=== PATIENT | female | born 1950 | race Caucasian/White ===

== ENCOUNTER → 2023-04-25 12:08 | Outpatient (CLI) | payer MEDICARE, SELFPAY ==
--- NOTE | ~2023-04-25 | XR_ITS ---
EXAMINATION: XR lumbar spine min 4V DATE: 04/25/2023 12:51 INDICATION: Chronic low back pain TECHNIQUE: Anteroposterior, lateral, and bilateral oblique views of the lumbar spine, and cone-down l ateral view of the lumbosacral junction were obtained. COMPARISON: None. FINDINGS: Bone alignment is normal. There is severe loss of intervertebral disc space height at L5-S1 . There is moderate facet joint osteoarthritis at L5-S1. The vertebral body heights are maintained. T here is multilevel mild facet joint osteoarthritis. Surgical clips in the right upper quadrant are maldonado lemos from prior cholecystectomy. IMPRESSION: 1. Severe lumbar spondylosis at L5-S1. Reviewed, dictated and finalized at location B. L BLOCK PRESS OPERATOR
--- NOTE | ~2023-04-25 | XR_ITS ---
AP and lateral views of the bilateral hips Clinical history: Pain Findings: No acute fracture or dislocation is seen. Osseous alignment is anatomic. Bilateral hip and SI joint spaces are preserved. Soft tissues are unremarkable. Impression: No significant abnormality is seen. Reviewed, dictated and finalized at [facility]. LITY MANAGER HISTOLOGY Impression: No significant abnormality is seen.
== END ==
PROVIDERS: PCP Physician Assistant; Visit Provider Physician Assistant
DX: M47.816 Spondylosis without myelopathy or radiculopathy, lumbar region (principal); M25.552 Pain in left hip; M25.551 Pain in right hip
CPT/HCPCS: 72110; 73521

== ENCOUNTER 2023-05-30 13:16 | Emergency (ER) | payer MEDICARE, SELFPAY ==
[2023-05-30] VITALS (32 sets, daily range): BP systolic 88–166; BP diastolic 43–95; PULSE 57–71; RESP 13–20; TEMP 37.1; O2SAT 91–98
--- NOTE | ~2023-05-30 | XR_ITS ---
EXAMINATION: XR chest 1V portable INDICATION: Dyspnea and cough TECHNIQUE: Portable AP chest at 1644 hours COMPARISON: None available FINDINGS: The lungs are free of acute opacities. There is a 7 mm nodule of the right midlung zone. Th ere is also questionable 8 mm nodule at the superolateral aspect of the left hemithorax projecting ov er the posterior left fifth rib. The heart size is normal. IMPRESSION: 1. Right lung nodule and possible left lung nodule. Follow-up with CT of the chest is recommended. Reviewed, dictated and finalized at location F. E DYE WORKER IMPRESSION: 1. Right lung nodule and possible left lung nodule. Follow-up with CT of the ch est is recommended.
--- NOTE | ~2023-05-30 | CT_ITS ---
EXAMINATION: CT diagnostic chest wo con DATE: 05/30/2023 18:05 INDICATION: Lung nodule on chest radiograph TECHNIQUE: Computed tomography (CT) of the chest was performed without intravenous contrast. The dose -length product (DLP) was 176.41 mGy-cm. Automated exposure control and iterative reconstruction tech [employer] were employed. COMPARISON: Chest radiograph from today FINDINGS: There is a 10 mm nodule in the superior segment of the right lower lobe. There is a 9 mm no dule in the left upper lobe. There is a 7 mm nodule posteriorly in the left lower lobe. There is a 6 mm pleural-based nodule posteriorly in the right lower lobe. There are patchy airspace opacities of t he lower lobes. No pathologically enlarged thoracic lymph nodes are identified. The heart size is nor mal. There is calcified coronary artery atherosclerosis. Changes of cholecystectomy are noted. There is moderate thoracic spondylosis. IMPRESSION: 1. Multiple lung nodules as detailed above, concerning for metastatic disease. CT-guided biopsy of on e of the nodules is recommended. 2. Patchy airspace opacities in the lower lobes, likely minimal pneumonia. Reviewed, dictated and finalized at location F. DIE MAKER IMPRESSION: 1. Multiple lung nodules as detailed above, concerning for metastatic disease. CT-guided biopsy of one of the nodules is recommended. 2. Patchy airspace opacities in the lower lobes, likely minimal pneumonia.
--- NOTE | 2023-05-30 13:35 | PC.NURSE ---
Patient presents and states she is not feeling well and feels like she is going to pass out . This RN took patient's vitals and her BP is 83/44.
[2023-05-30 13:41] LABS: Glucose Point of Care 132 mg/dl (65-105)
--- NOTE | 2023-05-30 13:59 | PC.NURSE ---
Pt A&Ox4 in room. Pt denies chest pain but c/o a cough. Pt O2sats 92%-94% RA,
--- NOTE | 2023-05-30 15:22 | ECG_ITS ---
Measurements Intervals [place] Rate: 57 P: 33 [place]: 155 QRS: -22 QRSD: 83 T: 29 QT: 441 QTc: 433 Interpretive Statements SINUS BRADYCARDIA CANNOT RULE OUT SEPTAL INFARCT, AGE INDETERMINATE CONSIDER INFERIOR INFARCT, AGE INDETERMINATE BORDERLINE T WAVE ABNORMALITY- ANTERIOR LEADS ABNORMAL ECG NO PREVIOUS ECG AVAILABLE FOR COMPARISON Electronically Signed On 05-30-2023 15:23:51 PLUSH FINISHER by Pedro Navas D.O.
--- NOTE | 2023-05-30 15:28 | PC.NURSE ---
states pt has a passed out while on toilet multiple times. Pt states she has not been dx with vaso vagal.
[2023-05-30 16:13] LABS: Basophils Percent Auto 0.2 % (0.2-1.2); Hematocrit 38.4 % (37.0-47.0); Hemoglobin 12.7 g/dL (12.0-15.0); Immature Granulocyte Absolute 0.03 K/mm3 (0.00-0.031); Immature Granulocyte Percent A 0.6 % (0-0.5); Lymphocytes Absolute Auto 1.35 K/mm3 (0.9-3.2); Mean Corpuscular HGB Conc 33.1 g/dl (32-36); Mean Corpuscular Hemoglobin 28.9 pg (26-34); Mean Corpuscular Volume 87.5 fl (80-100); Mean Platelet Volume 9.2 fl (7.4-10.4); Monocytes Absolute Auto 0.5 K/mm3 (0.1-0.6); Monocytes Percent Auto 9.7 % (2.6-8.5); Neutrophils Absolute Auto 2.8 K/mm3 (1.3-6.7); Neutrophils Percent Auto 60.5 % (45.5-73.1); Platelet Count Result 150 k/mm3 (150-375); Red Blood Count 4.39 M/mm3 (4.2-5.4); Red Cell Distribution Width 12.8 % (11.5-14.5); White Blood Count 4.7 K/mm3 (4.5-10.0)
[2023-05-30 16:31] LABS: Alanine Aminotransferase 58 U/L (6-35); Albumin Level 3.5 g/dL (3.5-5.1); Alkaline Phosphatase 63 U/L (38-126); Anion Gap 4 mmol/L (8-16); Aspartate Amino Transferase 61 U/L (14-36); Bilirubin,Total 0.7 mg/dL (0.2-1.3); Blood Urea Nitrogen 19 mg/dL (7-17); Calcium 8.9 mg/dL (8.4-10.2); Carbon Dioxide 29 mmol/L (22-30); Chloride 95 mmol/L (98-107); Estimated CRCL calculation 45 ml/min; Estimated Glomerular Filt Rate 54; Glucose 134 mg/dL (65-110); Lipase 19 U/L (23-300); Potassium 4.6 mmol/L (3.4-5.0); Sodium 128 mmol/L (137-145)
--- NOTE | 2023-05-30 16:41 | ED.GENADULT ---
HPI - General Adult General Chief complaint: Shortness of Breath/Dyspnea Stated complaint: high bp, n/v/d x7 days, weakness Time Seen by Provider: 05/30/23 16:25 Source: patient Mode of arrival: ambulatory Limitations: no limitations History of Present Illness HPI narrative: this is a 72-year-old female who presents to the ED with chief complaint of cough x1 week. Reports that she has had productive cough with mucousy phlegm. He reports feeling generally weak and bone laced. Reports low-grade temperatures of 99 every day for the past 3 days. Reports body aches as well. Reports shortness of breath with exertion. also endorses congestion. Denies abdominal pain, nausea, vomiting, chest pain, palpitations, leg swelling, hemoptysis, urinary problems. Related Data Home Medications Medication Instructions Recorded Confirmed metformin 1,000 mg tablet 1,000 mg PO BID 01/07/23 04/27/23 nebivolol 5 mg tablet 5 mg PO DAILY 01/07/23 04/27/23 insulin glargine U-300 conc 300 50 unit subcut DAILY 01/08/23 04/27/23 unit/mL (3 mL) subcutaneous pen (Toujeo Max U-300 SoloStar) coenzyme Q10 10 mg capsule (Co 10 mg PO ONCE 04/25/23 04/27/23 Q-10) omega 5-bth-kce-fish oil 1,000 mg 1 cap PO DAILY 04/25/23 04/27/23 (120 mg-180 mg) capsule (Fish Oil) vitamin B complex (B 1 tablet PO DAILY 04/25/23 04/27/23 Complex-Vitamin B12 tablet) Allergies Allergy/AdvReac Type Severity Reaction Status Date / Time ampicillin Allergy Intermediate Rash Verified 05/30/23 13:17 semaglutide [From Ozempic] Allergy Intermediate Other Verified 05/30/23 13:17 tramadol [From Ultram] Allergy Intermediate Other Verified 05/30/23 13:17 venlafaxine [From Effexor] Allergy Intermediate Other Verified 05/30/23 13:17 Ubain Allergy Intermediate Other Uncoded 05/30/23 13:17 Review of Systems Review of Systems: All systems as dictated in [facility] Past Medical History Medical History History of Ruth's esophagus last EGD was normal History of CVA (cerebrovascular accident) Hyperlipidemia Hypertension Hypothyroidism Type 2 diabetes mellitus without complications Surgical History Surgical History History of cholecystectomy History of lumbar discectomy History of thumb surgery trigger finger History of tonsillectomy and adenoidectomy Family History Family History Father Hypertension Heart disease Mother Heart disease Hypertension Grandparent Cancer Social History Social History Smoking status: Never smoker Alcohol intake: never Substance use: never Substance use type: does not use Lack of Transportation: No Lack of Food: Never True Current Housing: I Have Housing Concerned About Future Housing: No Difficulty Paying Gas/Electric Bills: No Difficulty Paying for Meds: No Currently Unemployed: No Education: Trade/Vocational Certificate Difficulty w/ Childcare or Family Care: No Living arrangements: with family Occupation/Education: retired Gender identity (if verbalized by the patient): Female Sexual Orientation (if Verbalized by the Patient): Straight or Heterosexual Spiritual care concerns: No Exam Narrative: GENERAL: Well-appearing, well-nourished, and in no acute distress. HEAD: Normocephalic, atraumatic. EYES: PERRLA and EOMI. ENT: Nares clear, no rhinorrhea or epistaxis. Mucous membranes moist. Oropharynx without tonsillar hypertrophy exudate or other lesions. NECK: Supple. No adenopathy or masses. CHEST: No respiratory distress. adventitious sounds in the left lower lung field. 96% room air. HEART: Regular rate and rhythm. No murmur heard. Normal peripheral pulses. ABDOMEN: Soft, nontender, nondistended, normal active bowel sounds.
[2023-05-30 17:16] LABS: Influenza A QL RT-PCR Positive (Negative); Influenza B QL RT-PCR Negative (Negative); RSV RNA, RT-PCR Negative (Negative); SARS-CoV-2 RNA PCR Negative (Negative)
--- NOTE | 2023-05-30 17:23 | ECG_ITS ---
Measurements Intervals [place] Rate: 61 P: 50 [place]: 148 QRS: -19 QRSD: 78 T: 30 QT: 445 QTc: 449 Interpretive Statements SINUS RHYTHM CANNOT RULE OUT SEPTAL INFARCT, AGE INDETERMINATE CONSIDER INFERIOR INFARCT, AGE INDETERMINATE BASELINE WANDER- V6 ABNORMAL ECG COMPARED TO ECG 05/30/2023 13:52:17 SINUS RHYTHM NOW PRESENT Electronically Signed On 05-31-2023 8:05:59 HUMAN RESOURCES OPERATIONS MANAGER by Pedro Navas D.O.
[2023-05-30] MEDS: SODIUM CHLORIDE 0.9% IV 1,000 ML 999 ML IV CONT (17:36)
[2023-05-30 17:45] LABS: Appearance Urine Clear (Clear); Bacteria Urine None Seen /hpf; Bilirubin Urine Negative (Negative); Blood Urine Negative (Negative); Color Urine Yellow (Yellow); Glucose Urine UA Negative (Negative); Hyaline Casts Urine Present /lpf; Ketones Urine Negative (Negative); Leukocyte Esterase Ur 2+ LEU/UL (Negative); Mucus Urine Present /lpf; Need Manual Microscopic Reviewed; Nitrate Urine Negative (Negative); Protein Urine 2+ mg/dL (Negative); RBC Urine 0-2 /hpf (0-2); Squamous Epithelial Cell Urine Few /hpf (Few); Urobilinogen Urine 0.2 mg/dL (<2.0); WBC Urine 21-50 /hpf
[2023-05-30 17:46] LABS: Add Urine Microscopic? YES
== END 2023-05-30 19:40 | disposition home or self-care (01) ==
PROVIDERS: Emergency Medicine; Emergency Provider Physician Assistant; PCP Physician Assistant
DX: J10.1 Influenza due to other identified influenza virus with other respiratory manifestations (principal); R91.1 Solitary pulmonary nodule; Z20.822 Contact with and (suspected) exposure to COVID-19; I10 Essential (primary) hypertension; E78.5 Hyperlipidemia, unspecified; E03.9 Hypothyroidism, unspecified; E11.9 Type 2 diabetes mellitus without complications; Z86.73 Personal history of transient ischemic attack (TIA), and cerebral infarction without residual deficits; Z90.49 Acquired absence of other specified parts of digestive tract; Z79.84 Long term (current) use of oral hypoglycemic drugs; Z79.4 Long term (current) use of insulin; R00.1 Bradycardia, unspecified; R94.31 Abnormal electrocardiogram [ECG] [EKG]
CPT/HCPCS: 36415; 71045; 71250; 80053; 81001; 82948; 83690; 85025; 87077; 87086; 87088; 87637; 93005; 96360; 96361; 99283; J7030

== ENCOUNTER 2024-06-06 20:14 | Observation (INO) | payer MEDICARE, SELFPAY ==
--- NOTE | ~2024-06-06 | CT_ITS ---
CT ANGIOGRAM NECK AND HEAD History: Lower extremity weakness. Technique: Serial spiral axial images through the head and neck were obtained during arterial phase I V injection of 100 cc of Omnipaque 350. 3-D postprocessing and MIP images were then reconstructed on the remote workstation. Dose reduction technique was used on this scan by utilizing automated exposur e control and iterative reconstruction technique. The dose-length product (DLP) was 1038.78 mGy-cm. CTA neck findings: Bilateral vertebral arteries are patent. Bilateral common carotid and external ca rotid arteries are patent. Right internal carotid artery is patent, with calcified plaque at the prox imal right internal artery, resulting in probable 40% stenosis. There is more prominent calcified ramon que at the proximal left internal carotid artery, with probable focal high-grade stenosis approximate ly 95% The proximal right internal carotid artery demonstrates 40% stenosis relative to the normal di stal artery lumen diameter. The proximal left internal carotid artery demonstrates 95% stenosis relat desiree to the normal distal artery lumen diameter. 12 mm round left upper lobe pulmonary nodule noted. CTA head findings: Distal vertebral arteries, basilar artery, and posterior cerebral arteries are pat ent. There is focal fenestration of the basilar artery. Distal internal carotid arteries, middle cere bral arteries, and anterior cerebral arteries are patent. There are atherosclerotic calcifications in the cavernous portions of the distal internal carotid arteries, with areas of moderate to high-grade stenosis. No large vessel occlusion. No other areas of stenosis seen. No aneurysm. Impression: Probable focal high-grade stenosis at the proximal intracranial carotid artery, approximately 95% deg ree. Evaluation somewhat suboptimal due to artifact from calcified plaque. 40% stenosis at the proximal right internal carotid artery. 12 mm left upper lobe pulmonary nodule. Please see further details from recent chest CT dated 05/30/19 24. Reviewed, dictated and finalized at location M. CIATE PROFESSOR OF EDUCATION Impression: Probable focal high-grade stenosis at the proximal intracranial carotid artery, approximately 95% degree. Evaluation somewhat suboptimal due to artifact from calcified plaque. 40% stenosis at the proximal right internal carotid artery. 12 mm left upper lobe pulmonary nodule. Please see further details from recent chest CT dated 05/30/2023.
--- NOTE | ~2024-06-06 | XR_ITS ---
Portable chest x-ray Comparison: 05/30/2023 Clinical History: Neurologic deficit Findings: Lungs are clear, without focal consolidation or pleural effusion. Cardiomediastinal silho uette is stable. Bones and soft tissues are unremarkable. Impression: Clear lungs. Reviewed, dictated and finalized at [facility]. ER BABYSITTER Impression: Clear lungs.
--- NOTE | ~2024-06-06 | MR_ITS ---
MRI of the brain Clinical History: Speech difficulty, left lower extremity weakness Technique: Axial and sagittal T1-weighted images were acquired. These were followed by axial T2-weigh milana, diffusion weighted, gradient, and FLAIR images. Following intravenous administration of 17 cc Mu ltiHance gadolinium, T1-weighted fat-sat imaging was performed in the axial and coronal planes. Findings: There is an 8 mm focus of restricted diffusion in the left centrum semiovale, compatible fo millie acute infarct. No intracranial hemorrhage or mass lesion seen. There are moderate background auto radiator specialist payal microvascular ischemic changes in the periventricular white matter bilaterally. Ventricles and subarachnoid spaces are mildly dilated. Orbits are unremarkable. Paranasal sinuses and left mastoid air cells are clear. Right mastoid effusion present. Major intracranial flow voids appe ar intact. Sagittal midline structures are intact. No abnormal postcontrast enhancement identified. IMPRESSION: 8 mm focal acute infarct in the left centrum semiovale. Moderate background chronic microvascular ischemic changes. Reviewed, dictated and finalized at [facility]. RAFT QUALITY CONTROL INSPECTOR
--- NOTE | ~2024-06-06 | CT_ITS ---
CT head without contrast Indication: Neurologic deficit Technique: Serial scans were obtained through the brain without the administration of contrast. Dose reduction technique was used on this scan by utilizing automated exposure control and iterative recon struction technique. The dose-length product (DLP) was 681.00 mGy-cm. Findings: There is no evidence of intracranial hemorrhage, mass lesion, or acute infarct. The ventri cles and subarachnoid spaces are dilated, consistent with mild atrophy. Low attenuation regions are seen within the periventricular white matter bilaterally, likely representing changes from chronic mi crovascular ischemic disease. There is no evidence of edema, mass effect or midline shift. The visu alized paranasal sinuses and mastoid air cells are clear. Impression: No intracranial hemorrhage, mass, or acute infarct. Atrophy and chronic white matter changes, as above. Reviewed, dictated and finalized at location . ER ELECTRICAL Impression: No intracranial hemorrhage, mass, or acute infarct. Atrophy and chronic white matter changes, as above.
--- OUTSIDE RECORDS SUMMARY | 2024-06-06 20:18 | XMS_ITS | Clinical Summary ---
Author Organization [facility] Address [address] [place] [address]. [place], [place] [id number] [place] [id number] Care Team Providers Care Train Brake Operator Name Role Phone Unavailable Primary Care Provider Unavailabl e Medications AMLODIPINE BESY-BENAZEPRIL HCL 10-40 MG CapIndications: Hypertension TAKE ONE CAPSULE BY MOUTH EVERY DAY 90 capsule 03/24/2018 Active omeprazole 20 MG capsuleIndicati ons:Ruth's esophagus Take 1 capsule (20 mg total) by mouth daily. 30 capsule 6 06/10/2018 Active LEVOTHYROXINE 75 MCG tabletIndicatio ns:Hypothyroidi sm TAKE 1 TABLET BY MOUTH EVERY DAY 90 tablet 1 10/06/2018 Active levothyroxine 75 MCG tablet Take 1 tablet by mouth daily. 01/13/2018 Active Social History Tobacco Use Types Packs/Day Years Used Date Smoking Tobacco: Never Assessed Comments Unknown Sex and Gender Information Value Date Recorded Sex Assigned at Not on file Legal Sex Female 6:55 PM CDT Gender Identity Not on file Sexual Orientation Not on file Last Filed Vital Signs Vital Sign Reading Time Taken Comments Blood Pressure 165/76 11/25/2017 2:23 PM CDT Pulse 62 11/25/2017 2:23 PM CDT Temperature - - Respiratory Rate - - Oxygen Saturation - - Inhaled Oxygen Concentration - - Weight 88.5 kg (195 lb) 11/25/2017 2:23 PM CDT Height 160 cm (5' 3 ) 11/04/2017 3:28 PM CDT Body Mass Index 34.54 11/04/2017 3:28 PM CDT Plan of Treatment Health Maintenance Due Date Last Done Comments Colorectal Cancer Screening Colonoscopy (10 Years) 1950 Hepatitis C 1966 DTaP, Tdap and Td Vaccines (1 - Tdap) 12/12/1967 Dexa Scan (General) 2013 Zoster Vaccines (2 of 3) 08/09/2014 06/14/2014 Pneumococcal Vaccine: 65+ Years (2 of 2 - PCV) 11/04/2018 11/04/2017 RSV Immunization or 60+ Years (1 - 1-dose 75+ series) 12/12/2023 COVID-19 Vaccine ( - 2023- season) 2024 Influenza Adult (#1) 2024 02/03/2015, 03/01/2014, 03/29/2013, Additional history exists Meningococcal B Vaccine Aged Out No l onger eligible based on patient's age to complete this topic Meningococcal Vaccine Aged Out No basilio jaylyn eligible based on patient's age to complete this topic RSV Immunizations Under 20 Months Aged Out No longer eligible based on patient's age to complete this topic Procedures Procedure Name Priority Date/Time Associated Diagnosis Comments COLONOSCOPY Routine SOUND ENGINEER AUDIO CONTROL from Last 3 Months or Most Recently Relevant to Health Maintenance Results * Colonoscopy ( SOUND ENGINEER AUDIO CONTROL) Narrative [facility] TO EPIC CONVERSION - SOUND ENGINEER AUDIO CONTROL Documented hx of procedure Procedure Note , Generic Conversion, - 03/15/2018 Documented hx of procedure Generic Conversion Md GARR[facility] PROCEDURE ORDERABLES Final Result [facility] TO EPIC CONVERSION from Last 3 Months or Most Recently Relevant to Health Maintenance Advance Directives Documents on File Type Date Recorded Patient Nipple Machine Operator Expl anation Advance Directives and Living Will 01/22/2017 12:00 AM ADVANCED DIRECTIVES Advance Directives and Living Will 01/22/2017 12:00 AM ADVANCED DIRECTIVES Advance Directives and Living Will 10/28/2016 12:00 AM ADVANCED DIRECTIVES Advance Directives and Living Will 03/28/2015 12:00 AM ADVANCED DIRECTIVES Advance Directives and Living Will 02/24/2013 12:00 AM ADVANCED DIRECTIVES
[2024-06-06 20:24] VITALS: BP 202/98; PULSE 110; RESP 16; TEMP 36.3; O2SAT 99
--- NOTE | 2024-06-06 21:58 | ECG_ITS ---
Test Date: 2024-06-06 22:06:27 Measurements Intervals [place] Rate: 100 P: 40 MS: 158 QRS: -25 QRSD: 73 T: 21 QT: 335 QTc: 432 Interpretive Statements SINUS TACHYCARDIA LOW QRS VOLTAGE IN PRECORDIAL LEADS [QRS DEFLECTION < 1.0 mV IN CHEST LEADS] ANTEROSEPTAL MYOCARDIAL INFARCTION , OF INDETERMINATE AGE [40+ ms Q WAVE IN V1-V4] No previous ECG available for comparison Electronically Signed On 06-06-2024 22:07:55 DEVELOPMENT SYSTEM EFFICIENCY MANAGER by Yamilet Moreau M.D.
[2024-06-06 22:08] VITALS: BP 221/104; PULSE 100; RESP 13; RESP 14; O2SAT 98; O2SAT 99
[2024-06-06 22:15] LABS: Basophils Percent Auto 0.5 % (0.2-1.2); Eosinophils Absolute Auto 0.2 K/mm3 (0-0.3); Eosinophils Percent Auto 2.6 % (0-4.4); Hematocrit 40.9 % (37.0-47.0); Hemoglobin 13.1 g/dL (12.0-15.0); Immature Granulocyte Absolute 0.02 K/mm3 (0.00-0.031); Immature Granulocyte Percent A 0.3 % (0-0.5); Lymphocytes Absolute Auto 1.32 K/mm3 (0.9-3.2); Mean Corpuscular Hemoglobin 28.8 pg (26-34); Mean Corpuscular Volume 89.9 fl (80-100); Mean Platelet Volume 9.5 fl (7.4-10.4); Monocytes Absolute Auto 0.5 K/mm3 (0.1-0.6); Monocytes Percent Auto 7.1 % (2.6-8.5); Neutrophils Absolute Auto 4.6 K/mm3 (1.3-6.7); Neutrophils Percent Auto 69.5 % (45.5-73.1); Platelet Count Result 198 k/mm3 (150-375); Red Blood Count 4.55 M/mm3 (4.2-5.4); Red Cell Distribution Width 13.2 % (11.5-14.5); White Blood Count 6.6 K/mm3 (4.5-10.0)
[2024-06-06 22:17] VITALS: BP 210/76; PULSE 100; RESP 16; O2SAT 98
[2024-06-06 22:26] LABS: Alanine Aminotransferase 27 U/L (6-35); Albumin Level 4.3 g/dL (3.5-5.1); Alkaline Phosphatase 78 U/L (38-126); Anion Gap 8 mmol/L (4-12); Aspartate Amino Transferase 25 U/L (14-36); Bilirubin,Total 0.5 mg/dL (0.2-1.3); Blood Urea Nitrogen 29 mg/dL (7-17); Carbon Dioxide 27 mmol/L (22-30); Chloride 95 mmol/L (98-107); Estimated CRCL calculation 42 ml/min; Estimated Glomerular Filt Rate 51; Glucose 302 mg/dL (65-110); INR 0.9; Partial Thromboplastin Time 24.7 Seconds (22.3-36.8); Potassium 5.1 mmol/L (3.4-5.0); Prothrombin Time 12.6 Seconds (11.1-14.7); Sodium 130 mmol/L (137-145)
[2024-06-06 22:37] LABS: Troponin I < 0.012 ng/mL (0.000-0.034)
--- NOTE | 2024-06-06 22:50 | ED_ITS ---
HPI - Neuro Symptoms/Deficit General Chief Complaint: Neuro Symptoms/Deficit <Bernadette Potter PA-C - Last Filed: 06/07/24 03:32> Stated Complaint: not talking right , balance issues <Bernadette Potter PA-C - Last Filed: 06/07/24 03:32> Time Seen by Provider: 06/06/24 22:48 <JAOCBO Santana Last Filed: 06/07/24 03:32> Source: patient <JACOBO Santana Last Filed: 06/07/24 03:32> Mode of arrival: ambulatory <JACOBO Santana Last Filed: 06/07/24 03:32> Limitations: no limitations <JACOBO Santana Last Filed: 06/07/24 03:32> History of Present Illness HPI Narrative: Patient is a 73 y/o female, with PMH of TIA, DM, who presents to the ED with concern for stroke-like symptoms. Patient reports she has not felt well since yesterday morning. She states around 10:00 a.m. yesterday morning she began having some weakness in her left leg. States it felt heavy and like it was dragging when she tried to ambulate. Also reported having some drooling and feeling as though she was not speaking normally. States the symptoms lasted for approximately 30 minute before resolving. She has not had any further weakness of her leg, but does feel her speech is intermittently altered. States her tongue feels abnormal and like it is larger than usual. at bedside denies slurred speech. Patient denies any weakness of upper extremities. Denies numbness. Denies vision changes. Has had some lightheadedness over the last few days. Denies chest pain or shortness of breath. She is currently on antibiotics for UTI. <JACOBO Santana Last Filed: 06/07/24 03:32> Related Data Home Medications: Home Medications ?Medication ?Instructions ?Recorded ?Confirmed ?Last Taken ?Type insulin glargine U-300 conc 300 72 unit subcut QAM 08/30/23 01/27/25 01/26/25 History unit/mL (3 mL) subcutaneous pen (Toujeo Max U-300 SoloStar) coenzyme Q10 10 mg capsule (Co 10 mg PO ONCE 04/25/23 06/07/24 06/06/24 21:00 History Q-10) omega 3-hnr-mba-fish oil 1,000 mg 1 cap PO DAILY 04/25/23 06/07/24 06/06/24 21:00 History (120 mg-180 mg) capsule (Fish Oil) multivitamin with minerals 1 tablet PO DAILY 07/31/23 06/07/24 06/06/24 21:00 History dm-US-ozv-htl-qxjn-izu-D3-gink 400 1 pkg PO DAILY 07/31/23 06/07/24 06/06/24 21:00 History mcg/200 mg-240 mg oral combo pack atorvastatin 40 mg tablet (Lipitor) 40 mg PO DAILY 06/07/24 06/07/24 06/05/24 21:00 History propranolol 60 mg capsule,24 60 mg PO DAILY 06/07/24 06/07/24 Unknown History hr,extended release (Inderal LA) sulfamethoxazole 800 1 tablet PO BID UTI 06/07/24 06/07/24 06/05/24 09:00 History mg-trimethoprim 160 mg tablet <Bernadette Potter PA-C - Last Filed: 06/07/24 03:32> Allergies/Adverse Reactions: Allergies Allergy/AdvReac Type Severity Reaction Status Date / Time ampicillin Allergy Intermediate Rash Verified 11/19/23 11:04 semaglutide (From Ozempic) Allergy Intermediate LOSS OF Verified 11/19/23 11:04 APPETITE - WEAKNESS tramadol (From Ultram) Allergy Intermediate Other-UNABLE Verified 11/19/23 11:04 TO RECALL venlafaxine (From Effexor) Allergy Intermediate HEART Verified 11/19/23 11:04 RACING & AWAKE FOR 3-4 DAYS Ubain Allergy Intermediate Other-UNABLE Uncoded 11/19/23 11:04 TO RECALL <Bernadette Potter PA-C - Last Filed: 06/07/24 03:32> Review of Systems 2 Review of Systems: All systems reviewed & are unremarkable except as noted in HPI. <Bernadette Potter PA-C - Last Filed: 06/07/24 03:32> All systems reviewed & are unremarkable except as noted in HPI and below < Bernadette Potter PA-C - Last Filed: 06/07/24 03:32> [facility] Past Medical History Medical History: Medical History History of Ruth's esophagus last EGD was normal Hypertension Hyperlipidemia Hypothyroidism History of CVA (cerebrovascular accident) Type 2 diabetes mellitus without complications <Bernadette Potter PA-C - Last Filed: 06/07/24 03:32> Surgical History Surgical History: Surgical History History of tonsillectomy and adenoidectomy History of cholecystectomy History of thumb surgery trigger finger History of lumbar discectomy <Bernadette Potter PA-C - Last Filed: 06/07/24 03:32> Family History Family History: Family History Father Heart disease Hypertension Alzheimer's dementia Mother Heart disease Hypertension Alzheimer's dementia Grandparent Cancer <Bernadette Potter PA-C - Last Filed: 06/07/24 03:32> Social History Social History: Social History Smoking status: Never smoker Second hand tobacco smoke exposure: No Alcohol intake: never Substance use: never Substance use type: does not use Do You Feel Safe in your Home?: Yes Lack of Transportation: No Lack of Food: Never True Current Housing: I Have Housing Concerned About Future Housing: No Difficulty Paying Gas/Electric Bills: No Difficulty Paying for Meds: No Currently Unemployed: No Education: High School Diploma/GED Difficulty w/ Childcare or Family Care: No Living arrangements: with family Occupation/Education: retired Gender identity (if verbalized by the patient): Female Sexual Orientation (if Verbalized by the Patient): Straight or Heterosexual Spiritual care concerns: No <Bernadette Potter PA-C - Last Filed: 06/07/24 03:32> Exam 2 Narrative: GENERAL: Elderly, obese with BMI of 34.7, non-toxic, in no acute distress. HEAD: Normocephalic, atraumatic. EYES: PERRL/EOMI, conjunctivae clear bilaterally. No nystagmus. NECK: Supple. No meningeal signs. RESPIRATORY: Airway patent, respirations nonlabored. Clear to auscultation bilaterally, no rales, rhonchi, wheezing. CARDIOVASCULAR: Regular rate and rhythm without murmurs, rubs, or gallops. Peripheral pulses 2+ and equal bilaterally. MUSCULOSKELETAL: Moves all extremities. No gross deformities. SKIN: Warm, dry, normal color. No rashes. NEURO: A&O X3. Speech clear. No slurred speech or dysarthria. Follows commands. CN II-XII intact. Sensation grossly intact. Steady gait. Tremors of upper extremities and face, which is chronic. Strength 5/5 in upper and lower extremities bilaterally, possibly minimally weaker in her LLE, but able to perform all testing. Kkbw-ql-rwio and ogxrna-mj-fjzh testing intact bilaterally. No pronator drift. Equal premium card cancellation clerk strength bilaterally. PSYCHIATRIC: Appropriate mood and affect. Normal interaction. <Bernadette Potter PA-C - Last Filed: 06/07/24 03:32> Course GIN INSPECTOR/PA Physician Supervision Patient's HPI, Exam, and MDM were reviewed and I agreed with the workup and disposition done in the emergency department by the MLP. I was available for consultation, but was not directly involved with patient's care nor did I evaluate the patient. <Maxx Moyer MD - Last Filed: 06/07/24 09:06> Vital Signs Vital signs: Vital Signs Temperature 36.3 C L 06/06/24 20:24 Pulse Rate 110 H 06/06/24 20:24 Respiratory Rate 16 06/06/24 20:24 Blood Pressure 202/98 H 06/06/24 20:24 Pulse Oximetry 99 06/06/24 20:24 Oxygen Delivery Room Air 06/06/24 20:24 Temperature 36.8 C 06/07/24 05:47 Pulse Rate 99 06/07/24 08:58 Respiratory Rate 18 06/07/24 05:47 Blood Pressure 168/74 H 06/07/24 05:47 Pulse Oximetry 99 06/07/24 05:47 Oxygen Delivery Room Air 06/06/24 20:24 <Bernadette Potter PA-C - Last Filed: 06/07/24 03:32> Vital Signs Temperature 36.3 C L 06/06/24 20:24 Pulse Rate 110 H 06/06/24 20:24 Respiratory Rate 16 06/06/24 20:24 Blood Pressure 202/98 H 06/06/24 20:24 Pulse Oximetry 99 06/06/24 20:24 Oxygen Delivery Room Air 06/06/24 20:24 Temperature 36.8 C 06/07/24 05:47 Pulse Rate 99 06/07/24 08:58 Respiratory Rate 18 06/07/24 05:47 Blood Pressure 168/74 H 06/07/24 05:47 Pulse Oximetry 99 06/07/24 05:47 Oxygen Delivery Room Air 06/06/24 20:24 <Maxx Moyer MD - Last Filed: 06/07/24 09:06> MDM - Neuro Symptoms/Deficit MDM Narrative Medical decision making narrative: Patient presented to ED with concern for stroke-like symptoms that occurred yesterday. 30min episode of LLE weakness. Intermittent alteration in speech, strange sensation of tongue. Patient hypertensive upon arrival into the 200s systolic. She does have history of high blood pressure and is on amlodipine/benazepril. Also takes propranolol for her tremors. She does have clonidine listed on her med list, but does not believe that she is taking this. Otherwise reports compliance with her medications. On my initial exam, patient appears neurologically intact. There is maybe minimal weakness in LLE compared to R, but no gross focal deficits. Patient is still able to perform all testing. She is ambulatory throughout the ED with a steady gait without issue. No dysarthria or slurred speech. Chest x-ray interpreted by myself without focal findings, somewhat poor quality. Patient denies any respiratory complaints. CT brain was negative. CTA of brain carotid obtained and w/ area of possible focal stenosis within L carotid bulb vs artifact. No LVO. Patient's sx's are L sided, does not match with CTA findings. Basic laboratory studies are fairly unremarkable. Cbc without leukocytosis. Stable H&H. Potassium 5.1. Fluids initiated. Stable kidney function. Blood sugar mildly elevated to 302. EKG is nonischemic. Troponin is undetectable. UA consistent with infection. Patient is currently on Bactrim for UTI. CVA vs TIA. L leg weakness lasted for 30 minutes on Friday morning. Patient's speech is clear, no dysarthria and garbled speech. No aphasia. She states she has had a few intermittent episodes of feeling as though her speech is different than usual since then, but sx's are not persistent. Patient is already on dual anti-platelet therapy. There are no gross focal residual deficits at around 40 hours out. Patient's BP has been persistently elevated to nearly 200s. She was given additional dose of amlodipine 5mg PO however BP remains in 190s systolic. Discussed case with Jocelyn ESCOBEDO hospitalist, regarding admission for MRI and BP control. Did recommend discussion with outside neurology as we do not have Neurology available to us in hospital tomorrow. Patient is aware of this and aware that if she is admitted here for MRI, but she will not be seen by a neurologist/stroke specialist. Patient and family are OK with this and voiced understanding. Agreeable to admission here for MRI. Do not wish to be transferred at this time for neurology services. Discussed case with Neurology @ [facility] , Dr. Nuñez, advised no further interventions necessary at this time. Area of high grade stenosis likely asymptomatic, would not match with sx's. Can allow for permissive HTN up to 220/110. Re-discussed case with Jocelyn ESCOBEDO hospitalist, accepted to med/tele. MRI ordered for am. <Bernadette Potter PA-C - Last Filed: 06/07/24 03:32> Medical Records Attestation: I reviewed the patient's medical records. <JACOBO Santana Last Filed: 06/07/24 03:32> Lab Data Attestation: I reviewed the patient's lab results. <JACOBO Santana Last Filed: 06/07/24 03:32> Result diagrams: 06/07/24 08:44 06/07/24 08:44 <JACOBO Santana Last Filed: 06/07/24 03:32> Labs: Lab Results 06/06/24 06/06/24 Range/Units 22:10 23:45 WBC 6.6 (4.5-10.0) K/mm3 RBC 4.55 (4.2-5.4) M/mm3 Hgb 13.1 (12.0-15.0) g/dL Hct 40.9 (37.0-47.0) % MCV 89.9 (80-100) fl MCH 28.8 (26-34) pg MCHC 32.0 (32-36) g/dl RDW 13.2 (11.5-14.5) % Plt Count 198 (150-375) k/mm3 MPV 9.5 (7.4-10.4) fl Immature Gran % (Auto) 0.3 (0-0.5) % Neut % (Auto) 69.5 (45.5-73.1) % Lymph % (Auto) 20.0 (18.3-44.2) % [place] % (Auto) 7.1 (2.6-8.5) % Eos % (Auto) 2.6 (0-4.4) % Baso % (Auto) 0.5 (0.2-1.2) % Lymph # (Auto) 1.32 (0.9-3.2) K/mm3 [place] # (Auto) 0.5 (0.1-0.6) K/mm3 Eos # (Auto) 0.2 (0-0.3) K/mm3 Baso # (Auto) 0.0 (0.0-0.1) K/mm3 Abs Immat Gran (auto) 0.02 (0.00-0.031) K/mm3 Absolute Neuts (auto) 4.6 (1.3-6.7) K/mm3 Absolute Nucleated RBC 0.000 (0.0-0.012) K/mm3 Nucleated RBC % 0.0 (0.0-0.2) % PT 12.6 (11.1-14.7) Seconds INR 0.9 APTT 24.7 (22.3-36.8) Seconds Sodium 130 L (137-145) mmol/L Potassium 5.1 H (3.4-5.0) mmol/L Chloride 95 L (98-107) mmol/L Carbon Dioxide 27 (22-30) mmol/L Anion Gap 8 (4-12) mmol/L BUN 29 H D (7-17) mg/dL Creatinine 1.05 H (0.7-1.0) mg/dL Estim Creat Clear Calc 42 ml/min Estimated GFR 51 L (59 - ) Glucose 302 H (65-110) mg/dL Calcium 10.0 (8.4-10.2) mg/dL Total Bilirubin 0.5 (0.2-1.3) mg/dL AST 25 (14-36) U/L ALT 27 (6-35) U/L Alkaline Phosphatase 78 (38-126) U/L Troponin I < 0.012 (0.000-0.034) ng/mL Total Protein 7.0 (6.3-8.2) g/dL Albumin 4.3 (3.5-5.1) g/dL Urine Color Yellow (Yellow) Urine Appearance Clear (Clear) Urine pH 5.5 (5.0-9.0) Ur Specific [place] 1.016 (1.001-1.035) Urine Protein 1+ H (Negative) mg/dL Urine Glucose (UA) 3+ H (Negative) mg/dL Urine Ketones Trace H (Negative) mg/dL Ur Blood (Man) Negative (Negative) Urine Nitrate Negative (Negative) Urine Bilirubin Negative (Negative) Urine Urobilinogen 0.2 (<2.0) mg/dL Add Ur Microanalysis Reviewed Leukocyte Esterase Rfl 2+ H (Negative) YUSRA/UL Urine RBC 3-5 H (0-2) /hpf Urine WBC 21-50 H (0-3) /hpf Ur Squamous Epith Cells Occasional (Few) /hpf Urine Bacteria None seen /hpf Urine Casts 0-2 <Bernadette Potter PA-C - Last Filed: 06/07/24 03:32> Lab Results 06/06/24 06/06/24 Range/Units 22:10 23:45 WBC 6.6 (4.5-10.0) K/mm3 RBC 4.55 (4.2-5.4) M/mm3 Hgb 13.1 (12.0-15.0) g/dL Hct 40.9 (37.0-47.0) % MCV 89.9 (80-100) fl MCH 28.8 (26-34) pg MCHC 32.0 (32-36) g/dl RDW 13.2 (11.5-14.5) % Plt Count 198 (150-375) k/mm3 MPV 9.5 (7.4-10.4) fl Immature Gran % (Auto) 0.3 (0-0.5) % Neut % (Auto) 69.5 (45.5-73.1) % Lymph % (Auto) 20.0 (18.3-44.2) % [place] % (Auto) 7.1 (2.6-8.5) % Eos % (Auto) 2.6 (0-4.4) % Baso % (Auto) 0.5 (0.2-1.2) % Lymph # (Auto) 1.32 (0.9-3.2) K/mm3 [place] # (Auto) 0.5 (0.1-0.6) K/mm3 Eos # (Auto) 0.2 (0-0.3) K/mm3 Baso # (Auto) 0.0 (0.0-0.1) K/mm3 Abs Immat Gran (auto) 0.02 (0.00-0.031) K/mm3 Absolute Neuts (auto) 4.6 (1.3-6.7) K/mm3 Absolute Nucleated RBC 0.000 (0.0-0.012) K/mm3 Nucleated RBC % 0.0 (0.0-0.2) % PT 12.6 (11.1-14.7) Seconds INR 0.9 APTT 24.7 (22.3-36.8) Seconds Sodium 130 L (137-145) mmol/L Potassium 5.1 H (3.4-5.0) mmol/L Chloride 95 L (98-107) mmol/L Carbon Dioxide 27 (22-30) mmol/L Anion Gap 8 (4-12) mmol/L BUN 29 H D (7-17) mg/dL Creatinine 1.05 H (0.7-1.0) mg/dL Estim Creat Clear Calc 42 ml/min Estimated GFR 51 L (59 - ) Glucose 302 H (65-110) mg/dL Calcium 10.0 (8.4-10.2) mg/dL Total Bilirubin 0.5 (0.2-1.3) mg/dL AST 25 (14-36) U/L ALT 27 (6-35) U/L Alkaline Phosphatase 78 (38-126) U/L Troponin I < 0.012 (0.000-0.034) ng/mL Total Protein 7.0 (6.3-8.2) g/dL Albumin 4.3 (3.5-5.1) g/dL Urine Color Yellow (Yellow) Urine Appearance Clear (Clear) Urine pH 5.5 (5.0-9.0) Ur Specific [place] 1.016 (1.001-1.035) Urine Protein 1+ H (Negative) mg/dL Urine Glucose (UA) 3+ H (Negative) mg/dL Urine Ketones Trace H (Negative) mg/dL Ur Blood (Man) Negative (Negative) Urine Nitrate Negative (Negative) Urine Bilirubin Negative (Negative) Urine Urobilinogen 0.2 (<2.0) mg/dL Add Ur Microanalysis Reviewed Leukocyte Esterase Rfl 2+ H (Negative) YUSRA/UL Urine RBC 3-5 H (0-2) /hpf Urine WBC 21-50 H (0-3) /hpf Ur Squamous Epith Cells Occasional (Few) /hpf Urine Bacteria None seen /hpf Urine Casts 0-2 <Maxx Moyer MD - Last Filed: 06/07/24 09:06> Imaging Data Attestation: I personally reviewed and interpreted this imaging study as follows: < Bernadette Potter PA-C - Last Filed: 06/07/24 03:32> Radiologist's impression: STAT RAD CT brain: No acute intracranial finding. For stroke, recommend CT or MRI. STAT RAD CTA brain/carotids: Left carotid bulb with possible artifact due to dense calcified plaque or focal high-grade stenosis, otherwise distally pain ICA and ECA. Otherwise no flow-limiting arterial abnormality seen. Consider vascular surgery consultation. No large vessel occlusion. Consider MRI. < Bernadette Potter PA-C - Last Filed: 06/07/24 03:32> ECG Data EKG #1: Attestation: I personally reviewed and interpreted this ECG as follows: <Bernadette Potter PA-C - Last Filed: 06/07/24 03:32> ECG completion date: 06/06/24 <JACOBO Santana Last Filed: 06/07/24 03:32> ECG completion time: 22:06 <JACOBO Santana Last Filed: 06/07/24 03:32> EKG Interpretation: normal rate (100), sinus rhythm and non-specific ST changes <JACOBO Santana Last Filed: 06/07/24 03:32> Discharge Plan Discharge Clinical Impression: Transient weakness of left leg, Alteration in speech Hypertension Qualifiers: Hypertension type: unspecified Qualified Code(s): I10 - Essential (primary) hypertension <JACOBO Santana Last Filed: 06/07/24 03:32> Patient Disposition: Still a Patient <JACOBO Santana Last Filed: 06/07/24 03:32> Condition: Stable <Bernadette Potter PA-C [place] Last Filed: 06/07/24 03:32> Quality Stroke Scale Stroke Scale 1: Stroke scale date:: 06/06/24 <Bernadette Potter PA-C [place] Last Filed: 06/07/24 03:32> Stroke scale time:: 23:20 <Bernadette Potter PA-C - Last Filed: 06/07/24 03:32> 1a Level of consciousness: alert-0 <Bernadette Potter PA-C [place] Last Filed: 06/07/24 03:32> 1b Level of consciousness questions: answers both correctly-0 <Bernadette Potter PA-C - Last Filed: 06/07/24 03:32> 1c Level of consciousness commands: obeys both correctly-0 <JACOBO Santana Last Filed: 06/07/24 03:32> 2 Best gaze: normal-0 <JACOBO Santana Last Filed: 06/07/24 03:32> 3 Visual: no visual loss-0 <JACOBO Santana Last Filed: 06/07/24 03:32> 4 Facial palsy: normal-0 <JACOBO Santana Last Filed: 06/07/24 03:32> 5a Motor: left arm: no drift-0 <Bernadette Potter PA-C - Last Filed: 06/07/24 03:32> 5b Motor: right arm: no drift-0 <Bernadette Potter PA-C - Last Filed: 06/07/24 03:32> 6a Motor: left leg: drift-1 <Bernadette Potter PA-C - Last Filed: 06/07/24 03:32> 6b Motor: right leg: no drift-0 <JACOBO Santana Last Filed: 06/07/24 03:32> 7 Limb ataxia: absent-0 <JACOBO Santana Last Filed: 06/07/24 03:32> 8 Sensory: normal-0 <Bernadette Potter PA-C - Last Filed: 06/07/24 03:32> 9 Best language: no aphasia-0 <JACOBO Santana Last Filed: 06/07/24 03:32> 10 Dysarthria: normal-0 <JACOBO Santana Last Filed: 06/07/24 03:32> 11 Extinction and inattention: no abnormality-0 <JACOBO Santana Last Filed: 06/07/24 03:32> Level:: 1 <Bernadette Potter PA-C - Last Filed: 06/07/24 03:32> 1 <Maxx Moyer MD - Last Filed: 06/07/24 09:06>
[2024-06-06] MEDS: SODIUM CHLORIDE 0.9% IV 1,000 ML 999 ML IV CONT (23:16)
[2024-06-06 23:19] VITALS: BP 217/86; PULSE 105; RESP 12; O2SAT 98
--- OUTSIDE RECORDS SUMMARY | 2024-06-06 23:23 | XMS_ITS | Clinical Summary ---
Author Organization [facility] Address [address] [place] [address]. [place], [place] [id number] [place] [id number] Care Team Providers Care Car Rental Manager Name Role Phone Unavailable Primary Care Provider [...] Priority Date/Time Associated Diagnosis Comments COLONOSCOPY Routine GROCERY STOCK CLERK from Last 3 Months or Most Recently Relevant to Health Maintenance Results * Colonoscopy ( GROCERY STOCK CLERK) Narrative [facility] TO EPIC CONVERSION - GROCERY STOCK CLERK Documented hx of procedure Procedure Note , Generic Conversion, - 03/15/2018 Documented hx of procedure Generic Conversion Md [facility] PROCEDURE ORDERABLES Final Result [facility] TO EPIC CONVERSION from Last 3 Months or Most Recently Relevant to Health Maintenance Advance Directives Documents on File Type Date Recorded Patient Defence Intelligence Analyst Expl anation Advance Directives and Living Will 01/22/2017 12:00 AM ADVANCED DIRECTIVES Advance Directives and Living Will 01/22/2017 12:00 AM ADVANCED DIRECTIVES Advance Directives and Living Will 10/28/2016 12:00 AM ADVANCED DIRECTIVES Advance Directives and Living Will 03/28/2015 12:00 AM ADVANCED DIRECTIVES Advance Directives and Living Will 02/24/2013 12:00 AM ADVANCED DIRECTIVES
[2024-06-06 23:32] VITALS: BP 218/79; PULSE 101; RESP 16
[2024-06-06 23:47] VITALS: BP 227/89; PULSE 104; RESP 17; O2SAT 99
[2024-06-07] VITALS (25 sets, daily range): BP systolic 150–213; BP diastolic 70–98; PULSE 63–106; RESP 13–20; TEMP 36.6–36.9; O2SAT 95–99; BMI 33.9
[2024-06-07 00:15] LABS: Add Urine Microscopic? YES; Appearance Urine Clear (Clear); Bacteria Urine None Seen /hpf; Bilirubin Urine Negative (Negative); Blood Urine Negative (Negative); Color Urine Yellow (Yellow); Glucose Urine UA 3+ mg/dL (Negative); Ketones Urine Trace mg/dL (Negative); Leukocyte Esterase Ur 2+ LEU/UL (Negative); Need Manual Microscopic Reviewed; Nitrate Urine Negative (Negative); Non Pathogenic Casts 0-2; Protein Urine 1+ mg/dL (Negative); Specific Grav Ur 1.016 (1.001-1.035); Squamous Epithelial Cell Urine Occasional /hpf (Few); Urobilinogen Urine 0.2 mg/dL (<2.0); WBC Urine 21-50 /hpf (0-3); pH Urine 5.5 (5.0-9.0)
[2024-06-07] MEDS: amLODIPine BESYLATE 5 MG TABLET PO (00:45)
--- NOTE | 2024-06-07 03:22 | PC.NURSE ---
this rn updated patient home medications.
--- NOTE | 2024-06-07 04:51 | ADMGEN ---
This patient, Christine Jimenez, was admitted to 3 [facility] Surg Room 315-02. Patient/family oriented to hospital policies and general routines including ID bracelet, bed and alarms, visiting hours, pain management, procedures, bathroom and other care routines, personal items, smoking policy, room service/diet, and visiting hours. Information on how to activate the Rapid Response Team has been discussed. Patient/Family are encouraged to report perceived risks to care and to ask questions if they do not understand what they are told or what they should do.
--- NOTE | 2024-06-07 08:13 | P.HP_ITS ---
H&P: HPI History of Present Illness Date/Time: 06/07/24 08:13 Chief Complaint: weakness in her left leg Narrative: Patient is a 73 y/o female with history of hypertension, hyperlipidemia, TA, hypothyroidism, diabetes on insulin, brought to ED with a chief complaint of weakness of left leg. Patient has been not feeling well since yesterday morning, patient also had some weakness in the left arm about 10:00 a.m. yesterday. When patient ambulate, patient feels labs like heavy and had to drag left leg.. Patient also had some facial drooping and abnormal speaking with abnormal sensation of tongue. Symptoms persists about 30 minutes. Patient had intermittent lightheadedness.. Patient denies chest pain, shortness of breath, nausea vomiting diarrhea . Chronic patient is on Bactrim for UTI. Upon arrival in the ED, patient was afebrile, blood pressure was not controlled no O2 desaturation on room air. I read the EKG EKG shows sinus rhythm no specific ST or T-wave changes, CBC unremarkable, chemistry showed hyponatremia 130 , uncontrolled glucose 302. CT head shows no acute intracranial issues, CT head neck shows proximal intracranial carotid artery stenosis 90%. Patient received aspirin Review of Systems Review of Systems: ROS negative except above PMFSH Past Medical History Medical History History of Ruth's esophagus last EGD was normal Hypertension Hyperlipidemia Hypothyroidism History of CVA (cerebrovascular accident) Type 2 diabetes mellitus without complications Surgical History Surgical History History of tonsillectomy and adenoidectomy History of cholecystectomy History of thumb surgery trigger finger History of lumbar discectomy Family History Family History Father Heart disease Hypertension Alzheimer's dementia Mother Heart disease Hypertension Alzheimer's dementia Grandparent Cancer Social History Social History Smoking status: Never smoker Second hand tobacco smoke exposure: No Alcohol intake: never Substance use: never Substance use type: does not use Do You Feel Safe in your Home?: Yes Lack of Transportation: No Lack of Food: Never True Current Housing: I Have Housing Concerned About Future Housing: No Difficulty Paying Gas/Electric Bills: No Difficulty Paying for Meds: No Currently Unemployed: No Education: High School Diploma/GED Difficulty w/ Childcare or Family Care: No Living arrangements: with family Occupation/Education: retired Gender identity (if verbalized by the patient): Female Sexual Orientation (if Verbalized by the Patient): Straight or Heterosexual Spiritual care concerns: No Meds Home Medications and Allergies Home Medications ?Medication ?Instructions ?Recorded ?Confirmed ?Type blood-glucose meter,continuous #1 ea 01/07/23 06/07/24 Rx (Dexcom G7 Pipe Threading Machine Operator) blood-glucose sensor (Dexcom G7 #1 ea 01/07/23 06/07/24 Rx Sensor device) aspirin 81 mg tablet,delayed 81 mg PO DAILY #30 tabs 01/08/23 06/07/24 Rx release insulin glargine U-300 conc 300 72 unit subcut QAM 01/08/23 06/07/24 History unit/mL (3 mL) subcutaneous pen (Toujeo Max U-300 SoloStar) magnesium oxide 400 mg PO DAILY #30 caps 01/08/23 06/07/24 Rx pen needle, diabetic 31 gauge x #100 ea 01/08/23 06/07/24 Rx 5/16 (BD Ultra-Fine Short Pen Needle) coenzyme Q10 10 mg capsule (Co 10 mg PO ONCE 04/25/23 06/07/24 History Q-10) omega 5-cri-ack-fish oil 1,000 mg 1 cap PO DAILY 04/25/23 06/07/24 History (120 mg-180 mg) capsule (Fish Oil) multivitamin with minerals 1 tablet PO DAILY 07/31/23 06/07/24 History yb-WO-yqu-ybb-gaow-zlx-D3-gink 400 1 pkg PO DAILY 07/31/23 06/07/24 History mcg/200 mg-240 mg oral combo pack clopidogrel 75 mg tablet 75 mg PO DAILY #90 tabs 08/22/23 06/07/24 Rx levothyroxine 75 mcg tablet 75 mcg PO DAILY #90 tabs 11/21/23 06/07/24 Rx amlodipine 5 mg-benazepril 20 mg See Rx Instructions .Route 01/28/24 06/07/24 Rx capsule .COMPLEX #90 caps rosuvastatin 20 mg tablet See Rx Instructions .Route 01/28/24 06/07/24 Rx .COMPLEX #90 tabs insulin aspart U-100 100 unit/mL 1 sliding scale dose subcut 01/30/24 06/07/24 Rx (3 mL) subcutaneous pen (Novolog USEASDIRECTD #15 mL FlexPen U-100 Insulin aspart) metformin 1,000 mg tablet 1,000 mg PO BID 90 days #180 tabs 02/18/24 06/07/24 Rx atorvastatin 40 mg tablet (Lipitor) 40 mg PO DAILY 06/07/24 06/07/24 History propranolol 60 mg capsule,24 60 mg PO DAILY 06/07/24 06/07/24 History hr,extended release (Inderal LA) sulfamethoxazole 800 1 tablet PO BID UTI 06/07/24 06/07/24 History mg-trimethoprim 160 mg tablet Allergies Allergy/AdvReac Type Severity Reaction Status Date / Time ampicillin Allergy Intermediate Rash Verified 11/19/23 11:04 semaglutide (From Ozempic) Allergy Intermediate LOSS OF Verified 11/19/23 11:04 APPETITE - WEAKNESS tramadol (From Ultram) Allergy Intermediate Other-UNABLE Verified 11/19/23 11:04 TO RECALL venlafaxine (From Effexor) Allergy Intermediate HEART Verified 11/19/23 11:04 RACING & AWAKE FOR 3-4 DAYS Ubain Allergy Intermediate Other-UNABLE Uncoded 11/19/23 11:04 TO RECALL Vital Signs Vital Signs - 24 hr 06/06/24 20:24 06/06/24 22:08 06/06/24 22:08 Temperature 97.3 F L Pulse Rate 110 H 100 100 Respiratory Rate 16 14 13 Blood Pressure 202/98 H 221/104 H 221/104 H Pulse Oximetry 99 99 98 Oxygen Delivery Room Air 06/06/24 22:08 06/06/24 22:17 06/06/24 23:19 Temperature Pulse Rate 100 100 105 H Respiratory Rate 16 12 Blood Pressure 210/76 H 217/86 H Pulse Oximetry 98 98 Oxygen Delivery 06/06/24 23:32 06/06/24 23:47 06/07/24 00:45 Temperature Pulse Rate 101 H 104 H 106 H Respiratory Rate 16 17 18 Blood Pressure 218/79 H 227/89 H 202/94 H Pulse Oximetry 99 98 Oxygen Delivery 06/07/24 00:46 06/07/24 01:02 06/07/24 01:17 Temperature Pulse Rate 105 H 95 95 Respiratory Rate 17 19 17 Blood Pressure 202/94 H 195/81 H 200/79 H Pulse Oximetry 99 98 96 Oxygen Delivery 06/07/24 01:32 06/07/24 01:44 06/07/24 01:47 Temperature Pulse Rate 93 97 102 H Respiratory Rate 16 13 15 Blood Pressure 182/79 H 182/79 H 213/96 H Pulse Oximetry 95 96 96 Oxygen Delivery 06/07/24 02:02 06/07/24 02:15 06/07/24 02:17 Temperature Pulse Rate 99 94 95 Respiratory Rate 20 15 17 Blood Pressure 192/80 H 196/86 H Pulse Oximetry 97 97 96 Oxygen Delivery 06/07/24 02:59 06/07/24 03:00 06/07/24 03:02 Temperature Pulse Rate 90 91 93 Respiratory Rate 14 15 14 Blood Pressure 180/91 H 184/83 H Pulse Oximetry 97 96 96 Oxygen Delivery 06/07/24 03:13 06/07/24 03:17 06/07/24 03:32 Temperature Pulse Rate 90 93 93 Respiratory Rate 13 17 14 Blood Pressure 184/83 H 184/86 H 209/91 H Pulse Oximetry 97 96 96 Oxygen Delivery 06/07/24 05:47 Temperature 98.3 F Pulse Rate 99 Respiratory Rate 18 Blood Pressure 168/74 H Pulse Oximetry 99 Oxygen Delivery Exam Narrative: GENERAL: Pleasant, in no acute distress. Well-nourished. - EYES: EOMI. Anicteric. - HENT: Moist mucous membranes. - LUNGS: Clear to auscultation bilateral ly, no wheezing, rhonchi, or rales. - CARDIOVASCULAR: Regular rate and rhyth m. No murmur. No JVD. - ABDOMEN: Soft, non-tender and non-dist ended. No palpable masses. - EXTREMITIES: No edema. Peripheral puls es 2+. Non-tender. - NEUROLOGIC: No focal neurological defi cits. CN II-XII grossly intact. - PSYCHIATRIC: Awake, Alert and oriented x 3. Appropriate mood and affect. - SKIN: No rashes or lesions. Warm. - LYMPH: No cervical lymphadenopathy. H&P: Results Labs Labs: Short CBC 06/06/24 Range/Units 22:10 WBC 6.6 (4.5-10.0) K/mm3 Hgb 13.1 (12.0-15.0) g/dL Hct 40.9 (37.0-47.0) % Plt Count 198 (150-375) k/mm3 BMP 06/06/24 22:10 Sodium 130 L Potassium 5.1 H Chloride 95 L Carbon Dioxide 27 BUN 29 H D Creatinine 1.05 H Glucose 302 H Calcium 10.0 Cardiac Enzymes 06/06/24 Range/Units 22:10 Troponin I < 0.012 (0.000-0.034) ng/mL Liver Function 06/06/24 Range/Units 22:10 Total Bilirubin 0.5 (0.2-1.3) mg/dL AST 25 (14-36) U/L ALT 27 (6-35) U/L Alkaline Phosphatase 78 (38-126) U/L Albumin 4.3 (3.5-5.1) g/dL Urine 06/06/24 Range/Units 23:45 Urine Color Yellow (Yellow) Urine Appearance Clear (Clear) Urine pH 5.5 (5.0-9.0) Ur Specific [place] 1.016 (1.001-1.035) Urine Protein 1+ H (Negative) mg/dL Urine Glucose (UA) 3+ H (Negative) mg/dL Assessment and Plan Assessment and plan (1) TIA (transient ischemic attack): Code(s): G45.9 - Transient cerebral ischemic attack, unspecified Status: Acute (2) Hypertension: Qualifiers: Hypertension type: unspecified Qualified Code(s): I10 - Essential (primary) hypertension Code(s): I10 - Essential (primary) hypertension Status: Acute (3) Transient weakness of left leg: Code(s): R29.898 - Other symptoms and signs involving the musculoskeletal system Status: Acute (4) Alteration in speech: Code(s): R47.89 - Other speech disturbances Status: Acute (5) Acquired hypothyroidism: Code(s): E03.9 - Hypothyroidism, unspecified Status: Acute (6) Type 2 diabetes mellitus with insulin therapy: Code(s): E11.9 - Type 2 diabetes mellitus without complications; Z79.4 - long term care phlebotomist (current) use of insulin Status: Acute Plan TIA versus acute ischemic stroke CT head shows no acute intracranial issues, CT head and neck showed proximal intracranial carotid artery stenosis 95% Continue aspirin 81 mg daily p.o., Plavix 75 mg daily p.o., Lipitor 40 mg daily p.o. Follow-up lipid panel, Pending echocardiogram with bubble study and brain normal I EKG shows sinus rhythm and sinus tachy Telemetry monitoring Consult neurologist Intracranial carotid artery stenosis CTA head neck showed Probable focal high-grade stenosis at the proximal intracranial carotid artery, approximately 95% degree. Evaluation somewhat suboptimal due to artifact from calcified plaque. 40% stenosis at the proximal right internal carotid artery. Continue statin Follow-up neurologist recommendation Insulin-dependent diabetes Uncontrolled diabetes Continue glargine decrease 72 unit to 50 units Start aspart 6 units a.c. Start insulin sliding scale a.c. and q.h.s. Adjust medications accordingly Hypoglycemic protocol is initiated Acquired hypothyroidism Continue Synthroid 75 mcg daily p.o. Follow-up TSH Hyponatremia, dehydration Elevated BUN creatinine ratio 29/1.05 Sodium 130 POA Possible due to dehydration Start normal saline IV 75 mL/hour Essential hypertension hypertension permission is over Patient has uncontrolled hypertension 160/74 Resume home medications amlodipine, lisinopril, propranolol Start hydralazine IV 10 mg p.r.n. with parameters Adjust medications accordingly UTI Received Bactrim Repeat urinalysis Patient may stay more than 2 midnights based on patient's condition and current clinical study Hospitalist [facility] Advance Care Plan I have confirmed that the patient's Advanced Care Plan is present, code status is documented, or surrogate decision maker is listed in patient medical record.: Yes Medication Reconciliation I have utilized all available resources to obtain, update and review the patients current medications (includes all prescriptions, OTC, herbals, cannabi s, and nutritional supplements).: Yes
--- NOTE | 2024-06-07 08:39 | ECHO_ITS ---
Patient Info Name: Christine Jimenez Age: 73 years : 1950 Gender: Female Ht: 62 in Wt: 185 lbs BSA: 1.95 m2 HR: 90 bpm BP: 168 / 74 mmHg Technical Quality: Good Exam Date: 06/07/2024 9:56 AM Exam Location: Echo Lab Patient Status: Inpatient Admit Date: 06/07/2024 Staff Ordering Physician: Justina Andrews MD Power Shovel Operator: Damaris Rojas RDCS Attending Provider: Betty Amador MD Exam Type: CA echo doppler w bubble study Study Info Indications - acute stroke Complete two-dimensional, color flow and Doppler transthoracic echocardiogram is performed with agitated saline. Contrast/Agitated Saline Contrast/Ag. Saline: Agitated Saline Amount: 20.00 ml Administered By: Damaris Rojas RDCS Existing IV Access: Yes Summary 1. Left ventricular chamber dimension is normal. 2. Left ventricular systolic function is normal, estimated at >70%. 3. There is mild concentric increased left ventricular wall thickness. 4. The left ventricular diastolic function is grade I diastolic dysfunction. 5. E/e' 11 is mildly elevated. 6. The mitral valve has moderately calcified leaflets and mildly calcified annulus. 7. No pulmonary hypertension, estimated pulmonary arterial systolic pressure is 36 mmHg. Left Ventricle E/e' 11 is mildly elevated. Left ventricular chamber dimension is normal. Left ventricular systolic function is normal, estimated at >70%. There is mild concentric increased left ventricular wall thickness. The left ventricular diastolic function is grade I diastolic dysfunction. Right Ventricle Right ventricular chamber dimension is normal. Right ventricular systolic function is normal. Left Atria Left atrial chamber dimension is normal. Right Atria Right atrial chamber dimension is normal. Atrial Septum Agitated saline injection with and without valsalva maneuver opacified right side cardiac chambers without shunt to left side cardiac chambers. Intact interatrial septum visualized by 2D and agitated saline imaging. Aortic Valve The aortic valve is trileaflet. There is no aortic valve stenosis. There is no aortic valve regurgitation. Pulmonic Valve There is no pulmonic regurgitation. Mitral Valve The mitral valve has moderately calcified leaflets and mildly calcified annulus. There is no mitral valve stenosis. There is no mitral valve regurgitation. Tricuspid Valve There is no tricuspid valve regurgitation. No pulmonary hypertension, estimated pulmonary arterial systolic pressure is 36 mmHg. Pericardium/Pleural There is no pericardial effusion. Inferior Vena Cava Normal inferior vena cava with >50% collapse upon inspiration consistent with normal right atrial pressure, 5 mmHg. Aorta The aortic root size at the sinus of Valsalva is normal. Left Ventricular Outflow Tract Name Value Normal LVOT 2D LVOT Diameter 1.9 cm LVOT Doppler LVOT Peak Gradient 4 mmHg LVOT Mean Gradient 2 mmHg LVOT VTI 24 cm LVOT VTI/AV VTI Ratio 0.9 LVOT Stroke Volume 64 ml LVOT CO 5.5 l/min LVOT CI 2.8 l/min/m2 Pulmonic Valve Name Value Normal RVOT Doppler RVOT Peak Gradient 5 mmHg PV Doppler PV Peak Gradient 7 mmHg Mitral Valve Name Value Normal MV Doppler MV Decel Kemper 520 cm/s2 MV PHT 45 ms MV Area (PHT) 4.9 cm2 4.0-5.0 MV Diastolic Function MV E Peak Velocity 81 cm/s MV A Peak Velocity 122 cm/s MV E/A 0.7 MV Decel Time 155 ms Tricuspid Valve Name Value Normal TV Regurgitation Doppler TR Peak Velocity 279 cm/s TR Peak Gradient 31 mmHg Estimated PAP/RSVP RA Pressure 5 mmHg <=5 PA Systolic Pressure 36 mmHg <36 RV Systolic Pressure 36 mmHg <36 Aorta Name Value Normal Ascending Aorta Ao Root Diameter (MM) 2.7 cm Ao Root Diam Index (MM) 1.4 cm/m2 Aortic Valve Name Value Normal AV Doppler AV Peak Velocity 133 cm/s AV Peak Gradient 7 mmHg AV Mean Gradient 4 mmHg AV VTI 27 cm AV Area (Cont Eq VTI) 2.4 cm2 >=3.0 AV Area (Cont Eq Surya) 2.0 cm2 AV Regurgitation 2D LVOT Area 2.7 cm2 Ventricles Name Value Normal LV Dimensions 2D/MM IVS Diastolic Thickness (2D) 1.0 cm 0.6-1.0 IVS Diastole Thickness (MM) 0.9 cm 0.6-0.9 LVID Diastole (2D) 3.2 cm 3.8-5.2 LVID Diastole (MM) 4.2 cm 3.8-5.2 LVIW Diastolic Thickness (2D) 1.3 cm 0.6-0.9 LVIW Diastolic Thickness (MM) 1.1 cm 0.6-0.9 LVID Systole (2D) 2.1 cm 2.2-3.5 LVID Systole (MM) 2.0 cm 2.2-3.5 LVOT Diameter 1.9 cm LV Mass (2D Cubed) 109.45 g 67.00-162.00 LV Mass Index (2D Cubed) 56 g/m2 43-95 Relative Wall Thickness (2D) 0.83 LV Mass (MM Cubed) 134.35 g 67.00-162.00 LV Mass Index (MM Cubed) 69 g/m2 43-95 Relative Wall Thickness (MM) 0.53 LV Fractional Shortening/Ejection Fraction 2D/MM LV Fractional Shortening (2D) 34 % 27-45 LV Fractional Shortening (MM) 52 % 27-45 LV EF (MM Teicholz) 83 % 54-74 LV EF (2D Teicholz) 65 % 54-74 LV Diastolic Volume (4C MOD) 84 ml LV EF (4C MOD) 72 % LV Diastolic Volume (2C MOD) 70 ml LV EF (2C MOD) 70 % LV Diastolic Volume (BP MOD) 77 ml 46-106 LV Diastolic Volume Index (BP MOD) 40 ml/m2 29-61 LV Systolic Volume (BP MOD) 22 ml 14-42 LV Systolic Volume Index (BP MOD) 11 ml/m2 8-24 LV EF (BP MOD) 71 % 54-74 LV Diastolic Length (4C) 7.2 cm LV Systolic Length (4C) 5.7 cm LV Stroke Volume (4C MOD) 61 ml Atria Name Value Normal LA Dimensions LA Dimension (MM) 3.4 cm 2.7-3.8 LA Volume (4C A-L) 35 ml LA Volume (BP A-L) 40 ml RA Dimensions RA Area (4C) 9.3 cm2 <=18.0 Report Signatures
[2024-06-07] MEDS: ENOXAPARIN 40 MG/0.4 ML SYRINGE SUB-Q (08:57)
[2024-06-07 08:58] LABS: Glucose Point of Care 152 mg/dl (65-105)
[2024-06-07] MEDS: CLOPIDOGREL BISULFATE 75 MG TABLET PO (08:58)
[2024-06-07] MEDS: ASPIRIN 81 MG ENTERIC TABLET PO (08:58)
[2024-06-07] MEDS: ACETAMINOPHEN 325 MG TABLET 650 MG PO (08:58)
[2024-06-07] MEDS: ATORVASTATIN 40 MG TABLET PO (08:58)
[2024-06-07] MEDS: PROPRANOLOL HCL 60 MG CAPSULE CR PO (08:58)
[2024-06-07 08:59] LABS: Basophils Absolute Auto 0.1 K/mm3 (0.0-0.1); Basophils Percent Auto 0.8 % (0.2-1.2); Eosinophils Absolute Auto 0.3 K/mm3 (0-0.3); Eosinophils Percent Auto 4.2 % (0-4.4); Hematocrit 38.6 % (37.0-47.0); Hemoglobin 12.6 g/dL (12.0-15.0); Immature Granulocyte Absolute 0.02 K/mm3 (0.00-0.031); Immature Granulocyte Percent A 0.3 % (0-0.5); Lymphocytes Absolute Auto 1.67 K/mm3 (0.9-3.2); Lymphocytes Percent Auto 28.1 % (18.3-44.2); Mean Corpuscular HGB Conc 32.6 g/dl (32-36); Mean Corpuscular Volume 88.7 fl (80-100); Mean Platelet Volume 9.2 fl (7.4-10.4); Monocytes Absolute Auto 0.5 K/mm3 (0.1-0.6); Monocytes Percent Auto 7.9 % (2.6-8.5); Neutrophils Absolute Auto 3.5 K/mm3 (1.3-6.7); Neutrophils Percent Auto 58.7 % (45.5-73.1); Platelet Count Result 198 k/mm3 (150-375); Red Blood Count 4.35 M/mm3 (4.2-5.4); Red Cell Distribution Width 13.1 % (11.5-14.5)
[2024-06-07 09:02] LABS: Alanine Aminotransferase 22 U/L (6-35); Albumin Level 3.9 g/dL (3.5-5.1); Alkaline Phosphatase 67 U/L (38-126); Anion Gap 9 mmol/L (4-12); Aspartate Amino Transferase 22 U/L (14-36); Bilirubin,Total 0.6 mg/dL (0.2-1.3); Blood Urea Nitrogen 20 mg/dL (7-17); Calcium 9.3 mg/dL (8.4-10.2); Carbon Dioxide 26 mmol/L (22-30); Chloride 98 mmol/L (98-107); Cholesterol 140 mg/dL (0-200); Estimated CRCL calculation 51 ml/min; Estimated Glomerular Filt Rate > 60; Glucose 146 mg/dL (65-110); HDL Direct 67 mg/dL; Potassium 4.1 mmol/L (3.4-5.0); Sodium 133 mmol/L (137-145); Triglycerides 174 mg/dL (<150)
[2024-06-07 09:13] LABS: LDL Cholesterol Direct 40 mg/dL
[2024-06-07] MEDS: SODIUM CHLORIDE 0.9% IV 1,000 ML 75 ML IV CONT (10:36)
[2024-06-07] MEDS: LEVOTHYROXINE SODIUM 75 MCG TABLET PO (10:36)
[2024-06-07] MEDS: LORazepam INJ (*CRX) 2 MG/ML VIAL 0.5 MG IV PUSH (11:11)
[2024-06-07 12:03] LABS: Glucose Point of Care 313 mg/dl (65-105)
[2024-06-07] MEDS: INSULIN ASPART (*BKC) 100 UNITS/ML SUB-Q ×2 (12:44→16:54)
[2024-06-07] MEDS: INSULIN ASPART (*BKC) 100 UNITS/ML 6 UNITS SUB-Q ×2 (12:44→16:54)
[2024-06-07 15:36] LABS: Add Urine Microscopic? YES; Appearance Urine Clear (Clear); Bacteria Urine None Seen /hpf; Bilirubin Urine Negative (Negative); Blood Urine Negative (Negative); Color Urine Yellow (Yellow); Glucose Urine UA 3+ mg/dL (Negative); Ketones Urine Negative (Negative); Leukocyte Esterase Ur Negative LEU/UL (Negative); Nitrate Urine Negative (Negative); Non Pathogenic Casts 0-2; Protein Urine Trace mg/dL (Negative); RBC Urine 0-2 /hpf (0-2); Specific Grav Ur 1.019 (1.001-1.035); Squamous Epithelial Cell Urine None Seen /hpf (Few); Urobilinogen Urine 0.2 mg/dL (<2.0); WBC Urine 0-5 /hpf (0-3); pH Urine 7.5 (5.0-9.0)
[2024-06-07 16:32] LABS: Glucose Point of Care 221 mg/dl (65-105)
[2024-06-07] MEDS: hydrALAZINE HCL 20 MG/ML VIAL 10 MG IV PUSH (21:46)
[2024-06-07 23:04] LABS: Glucose Point of Care 98 mg/dl (65-105)
[2024-06-08] VITALS (13 sets, daily range): BP systolic 120–174; BP diastolic 58–77; PULSE 62–86; RESP 16–18; TEMP 36.3–36.9; O2SAT 96–99
[2024-06-08] MEDS: traZODone HCL 50 MG TABLET PO (03:06)
[2024-06-08] MEDS: SODIUM CHLORIDE 0.9% IV 1,000 ML 75 ML IV CONT (03:08)
[2024-06-08] MEDS: LEVOTHYROXINE SODIUM 75 MCG TABLET PO (05:43)
[2024-06-08 06:01] LABS: Basophils Percent Auto 0.5 % (0.2-1.2); Eosinophils Absolute Auto 0.2 K/mm3 (0-0.3); Eosinophils Percent Auto 3.6 % (0-4.4); Hematocrit 36.3 % (37.0-47.0); Hemoglobin 11.8 g/dL (12.0-15.0); Immature Granulocyte Absolute 0.03 K/mm3 (0.00-0.031); Immature Granulocyte Percent A 0.5 % (0-0.5); Lymphocytes Absolute Auto 1.79 K/mm3 (0.9-3.2); Lymphocytes Percent Auto 30.4 % (18.3-44.2); Mean Corpuscular HGB Conc 32.5 g/dl (32-36); Mean Corpuscular Hemoglobin 28.6 pg (26-34); Mean Corpuscular Volume 88.1 fl (80-100); Mean Platelet Volume 9.2 fl (7.4-10.4); Monocytes Absolute Auto 0.5 K/mm3 (0.1-0.6); Monocytes Percent Auto 7.8 % (2.6-8.5); Neutrophils Absolute Auto 3.4 K/mm3 (1.3-6.7); Neutrophils Percent Auto 57.2 % (45.5-73.1); Platelet Count Result 184 k/mm3 (150-375); Red Blood Count 4.12 M/mm3 (4.2-5.4); White Blood Count 5.9 K/mm3 (4.5-10.0)
[2024-06-08 06:52] LABS: Anion Gap 7 mmol/L (4-12); Blood Urea Nitrogen 21 mg/dL (7-17); Carbon Dioxide 25 mmol/L (22-30); Chloride 98 mmol/L (98-107); Estimated CRCL calculation 48 ml/min; Estimated Glomerular Filt Rate > 60; Glucose 225 mg/dL (65-110); Potassium 3.9 mmol/L (3.4-5.0); Sodium 130 mmol/L (137-145)
[2024-06-08] MEDS: PROPRANOLOL HCL 60 MG CAPSULE CR PO (07:59)
[2024-06-08] MEDS: ASPIRIN 81 MG ENTERIC TABLET PO (07:59)
[2024-06-08] MEDS: hydrALAZINE HCL 20 MG/ML VIAL 10 MG IV PUSH (07:59)
[2024-06-08] MEDS: ATORVASTATIN 40 MG TABLET PO (07:59)
[2024-06-08] MEDS: ENOXAPARIN 40 MG/0.4 ML SYRINGE SUB-Q (07:59)
[2024-06-08] MEDS: CLOPIDOGREL BISULFATE 75 MG TABLET PO (07:59)
[2024-06-08] MEDS: INSULIN ASPART (*BKC) 100 UNITS/ML 6 UNITS SUB-Q ×2 (08:16→17:24)
[2024-06-08 08:26] LABS: Glucose Point of Care 197 mg/dl (65-105)
--- NOTE | 2024-06-08 08:30 | P.PNIM_ITS ---
Progress Note: A&P Assessment and Plan (1) TIA (transient ischemic attack): Code(s): G45.9 - Transient cerebral ischemic attack, unspecified Status: Acute (2) Hypertension: Qualifiers: Hypertension type: unspecified Qualified Code(s): I10 - Essential (primary) hypertension Code(s): I10 - Essential (primary) hypertension Status: Acute (3) Transient weakness of left leg: Code(s): R29.898 - Other symptoms and signs involving the musculoskeletal system Status: Acute (4) Alteration in speech: Code(s): R47.89 - Other speech disturbances Status: Acute (5) Acquired hypothyroidism: Code(s): E03.9 - Hypothyroidism, unspecified Status: Acute (6) Type 2 diabetes mellitus with insulin therapy: Code(s): E11.9 - Type 2 diabetes mellitus without complications; Z79.4 - halfway (current) use of insulin Status: Acute Plan acute ischemic stroke CT head shows no acute intracranial issues, CT head and neck showed proximal intracranial carotid artery stenosis 95% Continue aspirin 81 mg daily p.o., Plavix 75 mg daily p.o., Lipitor 40 mg daily p.o. Follow-up lipid panel, Pending echocardiogram with bubble study 1. Left ventricular chamber dimension is normal. 2. Left ventricular systolic function is normal, estimated at >70%. 3. There is mild concentric increased left ventricular wall thickness. 4. The left ventricular diastolic function is grade I diastolic dysfunction. 5. E/e' 11 is mildly elevated. 6. The mitral valve has moderately calcified leaflets and mildly calcified annulus. 7. No pulmonary hypertension, estimated pulmonary arterial systolic pressure is 36 mmHg. Brain MRI showed 8 mm focal acute infarct in the left centrum semiovale. EKG shows sinus rhythm and sinus tachy Telemetry monitoring: No significant arrhythmia is reported Consult neurologist Intracranial carotid artery stenosis CTA head neck showed Probable focal high-grade stenosis at the proximal intracranial carotid artery, approximately 95% degree. Evaluation somewhat suboptimal due to artifact from calcified plaque. 40% stenosis at the proximal right internal carotid artery. Continue statin I discussed case with Dr. Vasquez. Pending neurologist consultation Insulin-dependent diabetes Uncontrolled diabetes Continue glargine decrease 72 unit to 50 units Start aspart 6 units a.c. Start insulin sliding scale a.c. and q.h.s. Adjust medications accordingly Hypoglycemic protocol is initiated Acquired hypothyroidism Continue Synthroid 75 mcg daily p.o. Follow-up TSH For Hyponatremia, dehydration Elevated BUN creatinine ratio 29/1.05 Sodium 130 POA Possible due to dehydration, possible SIADH due to the stroke Started normal saline IV 75 mL/hour, able to tolerate diet Per is sodium chloride 1 g t.i.d. p.o. Essential hypertension hypertension permission is over Patient has uncontrolled hypertension 160/74 Resume home medications amlodipine 10 mg daily p.o., lisinopril 20 mg daily p.o., Start hydralazine IV 10 mg p.r.n. with parameters Adjust medications accordingly UTI Received Bactrim Repeat urinalysis: No sign of infection Patient may stay more than 2 midnights based on patient's condition and current clinical study Patient has unstable gait, consult inspector health care facilities and PT OT for evaluation assisting placement Subjective Date/time seen: 06/08/24 08:30 Interval history: I saw and examined patient today. Patient still has slurred speech, no improvement, denies double vision blurred vision lightheadedness. Patient feel tired, and patient is able to walk with unstable gait. Patient denies chest pain abdomen pain nausea vomiting diarrhea. Patient afebrile, blood pressure is not well controlled Exam Narrative: GENERAL: Pleasant, in no acute distress. Well-nourished. - EYES: EOMI. Anicteric. - HENT: Moist mucous membranes. - LUNGS: Clear to auscultation bilateral ly, no wheezing, rhonchi, or rales. - CARDIOVASCULAR: Regular rate and rhyth m. No murmur. No JVD. - ABDOMEN: Soft, non-tender and non-dist ended. No palpable masses. - EXTREMITIES: No edema. Peripheral puls es 2+. Non-tender. - NEUROLOGIC: No focal neurological defi cits. Right facial droop, slurred speech. - PSYCHIATRIC: Awake, Alert and oriented x 3. Appropriate mood and affect. - SKIN: No rashes or lesions. Warm. - LYMPH: No cervical lymphadenopathy. Objective Data Vital Signs Vital Signs: Vital Signs - 24 hr 06/07/24 08:58 06/07/24 09:00 06/07/24 12:00 Temperature Pulse Rate 99 91 Respiratory Rate Blood Pressure Pulse Oximetry Oxygen Delivery Room Air 06/07/24 14:00 06/07/24 16:00 06/07/24 20:00 Temperature 97.8 F Pulse Rate 77 75 63 Respiratory Rate 16 Blood Pressure 150/74 H Pulse Oximetry 99 Oxygen Delivery 06/07/24 22:00 06/07/24 23:00 06/08/24 00:00 Temperature 98.4 F Pulse Rate 63 86 Respiratory Rate 18 Blood Pressure 210/98 H 168/70 H Pulse Oximetry 98 Oxygen Delivery 06/08/24 04:00 06/08/24 06:00 Temperature 97.8 F Pulse Rate 74 77 Respiratory Rate 18 Blood Pressure 170/60 H Pulse Oximetry 97 Oxygen Delivery Intake/Output Intake/Output: Intake & Output 06/05/24 06/06/24 06/07/24 06/08/24 23:59 23:59 23:59 23:59 Intake Total 3440 583.8 Output Total 800 1000 Balance 2640 -416.2 Meds/Results Medications: Active Medications Generic Name Dose Route Start Last Admin Trade Name Freq PRN Reason Stop Dose Admin Acetaminophen 650 mg 06/07/24 03:14 06/07/24 08:58 Acetaminophen 325 Mg Tablet PO 650 mg Q4H PRN Administration Mild Pain (1-3) or Fever Aspirin 81 mg 06/07/24 09:00 06/08/24 07:59 Aspirin 81 Mg Enteric Tablet PO 81 mg DAILY CAITLYN Administration Atorvastatin Calcium 40 mg 06/07/24 09:00 06/08/24 07:59 Atorvastatin 40 Mg Tablet PO 40 mg DAILY CAITLYN Administration Clopidogrel Bisulfate 75 mg 06/07/24 09:00 06/08/24 07:59 Clopidogrel Bisulfate 75 Mg Tablet PO 75 mg DAILY CAITLYN Administration Dextrose 12.5 gm 06/07/24 08:37 Dextrose 50% 25 Gm/50 Ml Syringe IV PUSH PRN PRN Hypoglycemia Protocol Enoxaparin Sodium 40 mg 06/07/24 09:00 06/08/24 07:59 Enoxaparin 40 Mg/0.4 Ml Syringe SUB-Q 40 mg DAILY CAITLYN Administration Glucagon 1 mg 06/07/24 08:37 Glucagon For Inj 1 Mg Vial IM PRN PRN Hypoglycemia Protocol Glucose 15 gm 06/07/24 08:37 Glucose Oral Gel 15 Gm Of Glucse In 37.5 Gm Tube PO PRN PRN Hypoglycemia Protocol Hydralazine HCl 10 mg 06/07/24 10:28 06/08/24 07:59 Hydralazine Hcl 20 Mg/Ml Vial IV PUSH 10 mg Q6H PRN Administration Blood Pressure - High Dextrose 1,000 mls @ 100 mls/hr 06/07/24 08:37 Dextrose 5% 1,000 Ml IVPB PRN PRN Hypoglycemia Protocol Sodium Chloride 1,000 mls @ 75 mls/hr 06/07/24 10:30 06/08/24 08:15 Normal Saline Iv IV CONT 0 mls/hr .[id number] CAITLYN Infusion Insulin Aspart 6 units 06/07/24 12:00 06/08/24 08:16 Insulin Aspart (*Bkc) 100 Units/Ml SUB-Q 6 units [facility] Administration Insulin Aspart 4 - 8 units 06/07/24 12:00 06/08/24 08:14 Insulin Aspart (*Bkc) 100 Units/Ml SUB-Q Not Given [facility] Protocol Insulin Aspart 2 - 4 units 06/07/24 21:00 06/07/24 21:45 Insulin Aspart (*Bkc) 100 Units/Ml SUB-Q Not Given [facility] Protocol Levothyroxine Sodium 75 mcg 06/07/24 11:00 06/08/24 05:43 Levothyroxine Sodium 75 Mcg Tablet PO 75 mcg DAILY@0630 [facility] Administration Metoclopramide HCl 10 mg 06/07/24 08:37 Metoclopramide Hcl Inj 10 Mg/2 Ml Vial IV PUSH Q6H PRN Nausea And Vomiting Miscellaneous Information 1 each 06/07/24 00:01 Insulin Glargine U-300 Conc [Toujeo Max U-300 Solostar] 300 Unit/Ml (3 Is Nonformulary, C XX 07/07/24 00:00 [facility] Non-Formulary Medication 72 unit 06/07/24 09:00 Insulin Glargine U-300 Conc [Toujeo Max U-300 Solostar] SUB-Q 07/07/24 08:59 [facility] Ondansetron HCl 4 mg 06/07/24 03:14 Ondansetron Inj 4 Mg/2 Ml Vial IV PUSH Q4H PRN Nausea Perflutren Lipid Microsphere 0 ml 06/07/24 08:37 Perflutren Lipid Microspheres 1.5 Ml Vial Diluted To 10 Ml Total Volume IV PUSH 06/10/24 08:39 ONCE PRN adequate visualization Protocol Propranolol HCl 60 mg 06/07/24 09:00 06/08/24 07:59 Propranolol Hcl 60 Mg Capsule Cr PO 60 mg DAILY CAITLYN Administration Trazodone HCl 50 mg 06/08/24 02:37 06/08/24 03:06 Trazodone Hcl 50 Mg Tablet PO 50 mg ONCE PRN Administration Insomnia Radiology Results: ITS Impressions Chest X-Ray 06/07/24 05:21 Impression: Clear lungs. Head CT 06/07/24 05:22 Impression: No intracranial hemorrhage, mass, or acute infarct. Atrophy and chronic white matter changes, as above. Head/Neck CTA 06/07/24 06:03 Impression: Probable focal high-grade stenosis at the proximal intracranial carotid artery, approximately 95% degree. Evaluation somewhat suboptimal due to artifact from calcified plaque. 40% stenosis at the proximal right internal carotid artery. 12 mm left upper lobe pulmonary nodule. Please see further details from recent chest CT dated 05/30/2023. Brain MRI 06/07/24 13:31 IMPRESSION: 8 mm focal acute infarct in the left centrum semiovale. Moderate background chronic microvascular ischemic changes. Labs Labs: Laboratory Results - last 24 hr 06/07/24 06/07/24 06/07/24 08:44 08:56 11:40 WBC 6.0 RBC 4.35 Hgb 12.6 Hct 38.6 MCV 88.7 MCH 29.0 MCHC 32.6 RDW 13.1 Plt Count 198 MPV 9.2 Immature Gran % (Auto) 0.3 Neut % (Auto) 58.7 Lymph % (Auto) 28.1 [place] % (Auto) 7.9 Eos % (Auto) 4.2 Baso % (Auto) 0.8 Lymph # (Auto) 1.67 [place] # (Auto) 0.5 Eos # (Auto) 0.3 Baso # (Auto) 0.1 Abs Immat Gran (auto) 0.02 Absolute Neuts (auto) 3.5 Absolute Nucleated RBC 0.000 Nucleated RBC % 0.0 Sodium 133 L Potassium 4.1 Chloride 98 Carbon Dioxide 26 Anion Gap 9 BUN 20 H Creatinine 0.84 Estim Creat Clear Calc 51 Estimated GFR > 60 Glucose 146 H POC Capillary Glucose 152 H 313 H Calcium 9.3 Total Bilirubin 0.6 AST 22 ALT 22 Alkaline Phosphatase 67 Total Protein 6.0 L Albumin 3.9 Triglycerides 174 H Cholesterol 140 LDL Cholesterol Direct 40 HDL Direct 67 Urine Color Urine Appearance Urine pH Ur Specific [place] Urine Protein Urine Glucose (UA) Urine Ketones Ur Blood (Man) Urine Nitrate Urine Bilirubin Urine Urobilinogen Ur Leukocyte Esterase Urine RBC Urine WBC Ur Squamous Epith Cells Urine Bacteria Urine Casts 06/07/24 06/07/24 06/07/24 15:15 16:25 21:02 WBC RBC Hgb Hct MCV MCH MCHC RDW Plt Count MPV Immature Gran % (Auto) Neut % (Auto) Lymph % (Auto) [place] % (Auto) Eos % (Auto) Baso % (Auto) Lymph # (Auto) [place] # (Auto) Eos # (Auto) Baso # (Auto) Abs Immat Gran (auto) Absolute Neuts (auto) Absolute Nucleated RBC Nucleated RBC % Sodium Potassium Chloride Carbon Dioxide Anion Gap BUN Creatinine Estim Creat Clear Calc Estimated GFR Glucose POC Capillary Glucose 221 H 98 Calcium Total Bilirubin AST ALT Alkaline Phosphatase Total Protein Albumin Triglycerides Cholesterol LDL Cholesterol Direct HDL Direct Urine Color Yellow Urine Appearance Clear Urine pH 7.5 Ur Specific [place] 1.019 Urine Protein Trace Urine Glucose (UA) 3+ H Urine Ketones Negative Ur Blood (Man) Negative Urine Nitrate Negative Urine Bilirubin Negative Urine Urobilinogen 0.2 Ur Leukocyte Esterase Negative Urine RBC 0-2 Urine WBC 0-5 Ur Squamous Epith Cells None seen Urine Bacteria None seen Urine Casts 0-2 06/08/24 06/08/24 05:30 07:43 WBC 5.9 RBC 4.12 L Hgb 11.8 L Hct 36.3 L MCV 88.1 MCH 28.6 MCHC 32.5 RDW 13.0 Plt Count 184 MPV 9.2 Immature Gran % (Auto) 0.5 Neut % (Auto) 57.2 Lymph % (Auto) 30.4 [place] % (Auto) 7.8 Eos % (Auto) 3.6 Baso % (Auto) 0.5 Lymph # (Auto) 1.79 [place] # (Auto) 0.5 Eos # (Auto) 0.2 Baso # (Auto) 0.0 Abs Immat Gran (auto) 0.03 Absolute Neuts (auto) 3.4 Absolute Nucleated RBC 0.000 Nucleated RBC % 0.0 Sodium 130 L Potassium 3.9 Chloride 98 Carbon Dioxide 25 Anion Gap 7 BUN 21 H Creatinine 0.90 Estim Creat Clear Calc 48 Estimated GFR > 60 Glucose 225 H POC Capillary Glucose 197 H Calcium 9.0 Total Bilirubin AST ALT Alkaline Phosphatase Total Protein Albumin Triglycerides Cholesterol LDL Cholesterol Direct HDL Direct Urine Color Urine Appearance Urine pH Ur Specific [place] Urine Protein Urine Glucose (UA) Urine Ketones Ur Blood (Man) Urine Nitrate Urine Bilirubin Urine Urobilinogen Ur Leukocyte Esterase Urine RBC Urine WBC Ur Squamous Epith Cells Urine Bacteria Urine Casts
[2024-06-08 09:13] LABS: Glucose Point of Care 194 mg/dl (65-105)
[2024-06-08 11:53] LABS: Glucose Point of Care 173 mg/dl (65-105)
--- NOTE | 2024-06-08 12:08 | P.CONNEU_ITS ---
Assessment and Plan Assessment and plan (1) Type 2 diabetes mellitus with insulin therapy: Code(s): E11.9 - Type 2 diabetes mellitus without complications; Z79.4 - long term care pharmacist (current) use of insulin Status: Acute (2) TIA (transient ischemic attack): Code(s): G45.9 - Transient cerebral ischemic attack, unspecified Status: Acute (3) Carotid artery stenosis without cerebral infarction: Code(s): I65.29 - Occlusion and stenosis of unspecified carotid artery Status: Acute (4) Subcortical infarction: Code(s): I63.9 - Cerebral infarction, unspecified Status: Acute (5) Hypertension: Qualifiers: Hypertension type: unspecified Qualified Code(s): I10 - Essential (primary) hypertension Code(s): I10 - Essential (primary) hypertension Status: Acute Plan 1. Admitted with the possibility of TIA documented to to have abnormal MRI with focal acute infarct in the left centrum semi ovale 2. Abnormal CTA with possible high-grade stenosis at the proximal internal carotid artery of 95% degree stenosis . Right internal carotid artery is patent but with calcified plaques at the proximal right internal carotid artery resulting in 40% stenosis there is incidental finding of 12mm round left upper lobe pulmonary nodule. 3. Echocardiogram is pending 4. gait ataxia could be related to underlying diabetic neuropathy as well 5. Continue the medications such inform. Inform the physician and the nurse and consider transfer where vascular surgeon is available . All the pros and cons were discussed with the patient as well as the in the meantime treatment will be continued as such. Consult date: 06/08/24 HPI: Christine Jimenez is a 73 year old femaleAdmitted to the hospital through the emergency room for the stroke-like symptoms. Patient reportedly has not felt well since day before visit to the ER. Around 10:00 a.m. day before she started noticing weakness in her left lower extremity. Her left lower extremity felt heavy and she was dragging when she tried to ambulate. In addition she complained of drooling since and also as if she is not speaking normal the whole episode lasted for about 30minutes before it resolved. But she also complained of some difficulties speech intermittently such as heaviness of her tongue and her mention that she did not have any slurred speech there was no history of associated weakness of the upper extremities. She has had lightheadedness over the last several days. 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 Her vital signs were normal except blood pressure of 202/98 subsequent evaluation included a UA which is also abnormal because of glycosuria, subsequently on the floor MRI documented 8mm focal acute infarct in left centrum semi ovale, her head and neck CTA documented more prominent calcified plaque at the proximal left internal carotid artery with probable focal high-grade stenosis of 95% in addition to the proximal right internal carotid artery of 40% stenosis incidentally she was noted to have 12mm left upper lobe pulmonary nodule. She has been receiving aspirin 81mg daily, atorvastatin 40mg daily, clopidogrel 75mg daily, in addition to her other medications including insulin. Review of Systems 2 Review of Systems: All systems reviewed & are unremarkable except as noted in HPI and below PMFSH Past Medical History Medical History History of Ruth's esophagus last EGD was normal Hypertension Hyperlipidemia Hypothyroidism History of CVA (cerebrovascular accident) Type 2 diabetes mellitus without complications Surgical History Surgical History History of tonsillectomy and adenoidectomy History of cholecystectomy History of thumb surgery trigger finger History of lumbar discectomy Family History Family History Father Heart disease Hypertension Alzheimer's dementia Mother Heart disease Hypertension Alzheimer's dementia Grandparent Cancer Social History Social History Smoking status: Never smoker Second hand tobacco smoke exposure: No Alcohol intake: never Substance use: never Substance use type: does not use Do You Feel Safe in your Home?: Yes Lack of Transportation: No Lack of Food: Never True Current Housing: I Have Housing Concerned About Future Housing: No Difficulty Paying Gas/Electric Bills: No Difficulty Paying for Meds: No Currently Unemployed: No Education: High School Diploma/GED Difficulty w/ Childcare or Family Care: No Living arrangements: with family Occupation/Education: retired Gender identity (if verbalized by the patient): Female Sexual Orientation (if Verbalized by the Patient): Straight or Heterosexual Spiritual care concerns: No Meds Home Medications and Allergies Home Medications ?Medication ?Instructions ?Recorded ?Confirmed ?Type blood-glucose meter,continuous #1 ea 01/07/23 06/07/24 Rx (Dexcom G7 Chalk Cutter) blood-glucose sensor (Dexcom G7 #1 ea 01/07/23 06/07/24 Rx Sensor device) aspirin 81 mg tablet,delayed 81 mg PO DAILY #30 tabs 01/08/23 06/07/24 Rx release insulin glargine U-300 conc 300 72 unit subcut QAM 01/08/23 06/07/24 History unit/mL (3 mL) subcutaneous pen ([employer] Max U-300 SoloStar) magnesium oxide 400 mg PO DAILY #30 caps 01/08/23 06/07/24 Rx pen needle, diabetic 31 gauge x #100 ea 01/08/23 06/07/24 Rx 5/16 (BD Ultra-Fine Short Pen Needle) coenzyme Q10 10 mg capsule (Co 10 mg PO ONCE 04/25/23 06/07/24 History Q-10) omega 2-tpl-etq-fish oil 1,000 mg 1 cap PO DAILY 04/25/23 06/07/24 History (120 mg-180 mg) capsule (Fish Oil) multivitamin with minerals 1 tablet PO DAILY 07/31/23 06/07/24 History cg-VH-cho-ekn-xeki-eem-D3-gink 400 1 pkg PO DAILY 07/31/23 06/07/24 History mcg/200 mg-240 mg oral combo pack clopidogrel 75 mg tablet 75 mg PO DAILY #90 tabs 08/22/23 06/07/24 Rx levothyroxine 75 mcg tablet 75 mcg PO DAILY #90 tabs 11/21/23 06/07/24 Rx amlodipine 5 mg-benazepril 20 mg See Rx Instructions .Route 01/28/24 06/07/24 Rx capsule .COMPLEX #90 caps rosuvastatin 20 mg tablet See Rx Instructions .Route 01/28/24 06/07/24 Rx .COMPLEX #90 tabs insulin aspart U-100 100 unit/mL 1 sliding scale dose subcut 01/30/24 06/07/24 Rx (3 mL) subcutaneous pen (Novolog USEASDIRECTD #15 mL FlexPen U-100 Insulin aspart) metformin 1,000 mg tablet 1,000 mg PO BID 90 days #180 tabs 02/18/24 06/07/24 Rx atorvastatin 40 mg tablet (Lipitor) 40 mg PO DAILY 06/07/24 06/07/24 History propranolol 60 mg capsule,24 60 mg PO DAILY 06/07/24 06/07/24 History hr,extended release (Inderal [place]) sulfamethoxazole 800 1 tablet PO BID UTI 06/07/24 06/07/24 History mg-trimethoprim 160 mg tablet Allergies Allergy/AdvReac Type Severity Reaction Status Date / Time ampicillin Allergy Intermediate Rash Verified 11/19/23 11:04 semaglutide (From Ozempic) Allergy Intermediate LOSS OF Verified 11/19/23 11:04 APPETITE - WEAKNESS tramadol (From Ultram) Allergy Intermediate Other-UNABLE Verified 11/19/23 11:04 TO RECALL venlafaxine (From Effexor) Allergy Intermediate HEART Verified 11/19/23 11:04 RACING & AWAKE FOR 3-4 DAYS Ubain Allergy Intermediate Other-UNABLE Uncoded 11/19/23 11:04 TO RECALL Vital Signs Vital Signs - 24 hr 06/07/24 14:00 06/07/24 16:00 06/07/24 20:00 Temperature 36.6 C Pulse Rate 77 75 63 Respiratory Rate 16 Blood Pressure 150/74 H Pulse Oximetry 99 Oxygen Delivery 06/07/24 22:00 06/07/24 23:00 06/08/24 00:00 Temperature 36.9 C Pulse Rate 63 86 Respiratory Rate 18 Blood Pressure 210/98 H 168/70 H Pulse Oximetry 98 Oxygen Delivery 06/08/24 04:00 06/08/24 06:00 06/08/24 07:12 Temperature 36.6 C Pulse Rate 74 77 Respiratory Rate 18 Blood Pressure 170/60 H 173/68 H Pulse Oximetry 97 Oxygen Delivery 06/08/24 08:00 06/08/24 09:02 Temperature Pulse Rate 77 Respiratory Rate Blood Pressure 120/77 Pulse Oximetry 97 Oxygen Delivery Room Air Exam 2 Narrative: Exam today revealed her to be awake alert cooperative in no obvious acute distress sitting in the bed her happened to be in the room. Head normocephalic with no cranial bruits, ear nose throat examination normal, neck supple with bruits heart regular with no murmur lungs clear abdomen is soft neurologically she is awake alert aware of being in the hospital her speech is somewhat slow but not dysphasic and not dysarthric she was noted to have the nasal labial fold flattening on the right side extraocular movements are full with no nystagmus facial sensation was intact face asymmetric lungs in midline with no fasciculation motor examination revealed her to be generally weak but more so on the left as compared to the right in addition to very sluggish reflexes and downgoing plantar responses difficulties in performing [id number] to finger as well. Results Labs 06/08/24 05:30 06/08/24 05:30 Labs: Short CBC 06/08/24 Range/Units 05:30 WBC 5.9 (4.5-10.0) K/mm3 Hgb 11.8 L (12.0-15.0) g/dL Hct 36.3 L (37.0-47.0) % Plt Count 184 (150-375) k/mm3 BMP 06/08/24 05:30 Sodium 130 L Potassium 3.9 Chloride 98 Carbon Dioxide 25 BUN 21 H Creatinine 0.90 Glucose 225 H Calcium 9.0 Urine 06/07/24 Range/Units 15:15 Urine Color Yellow (Yellow) Urine Appearance Clear (Clear) Urine pH 7.5 (5.0-9.0) Ur Specific [place] 1.019 (1.001-1.035) Urine Protein Trace (Negative) mg/dL Urine Glucose (UA) 3+ H (Negative) mg/dL
[2024-06-08 16:53] LABS: Glucose Point of Care 277 mg/dl (65-105)
[2024-06-08] MEDS: amLODIPine BESYLATE 5 MG TABLET PO (16:55)
[2024-06-08] MEDS: lisinopriL 20 MG TABLET PO (16:55)
[2024-06-08] MEDS: INSULIN ASPART (*BKC) 100 UNITS/ML SUB-Q (17:25)
[2024-06-08] MEDS: MELATONIN 5 MG TABLET PO (21:04)
[2024-06-08 21:06] LABS: Glucose Point of Care 139 mg/dl (65-105)
[2024-06-09] VITALS: PULSE 75
[2024-06-09 04:00] VITALS: BP 164/72; PULSE 69; PULSE 70; RESP 18; TEMP 36.8; O2SAT 98
[2024-06-09] MEDS: LEVOTHYROXINE SODIUM 75 MCG TABLET PO (05:59)
[2024-06-09 06:52] LABS: Basophils Percent Auto 0.7 % (0.2-1.2); Eosinophils Absolute Auto 0.2 K/mm3 (0-0.3); Eosinophils Percent Auto 2.7 % (0-4.4); Hematocrit 36.9 % (37.0-47.0); Hemoglobin 11.9 g/dL (12.0-15.0); Immature Granulocyte Absolute 0.01 K/mm3 (0.00-0.031); Immature Granulocyte Percent A 0.2 % (0-0.5); Lymphocytes Absolute Auto 1.66 K/mm3 (0.9-3.2); Lymphocytes Percent Auto 30.1 % (18.3-44.2); Mean Corpuscular HGB Conc 32.2 g/dl (32-36); Mean Platelet Volume 9.5 fl (7.4-10.4); Monocytes Absolute Auto 0.4 K/mm3 (0.1-0.6); Neutrophils Absolute Auto 3.2 K/mm3 (1.3-6.7); Neutrophils Percent Auto 58.3 % (45.5-73.1); Platelet Count Result 176 k/mm3 (150-375); Red Cell Distribution Width 13.1 % (11.5-14.5); White Blood Count 5.5 K/mm3 (4.5-10.0)
[2024-06-09 07:15] LABS: Anion Gap 8 mmol/L (4-12); Blood Urea Nitrogen 19 mg/dL (7-17); Calcium 9.4 mg/dL (8.4-10.2); Carbon Dioxide 23 mmol/L (22-30); Chloride 97 mmol/L (98-107); Estimated CRCL calculation 47 ml/min; Estimated Glomerular Filt Rate 60; Glucose 287 mg/dL (65-110); Potassium 4.4 mmol/L (3.4-5.0); Sodium 128 mmol/L (137-145)
[2024-06-09 07:57] LABS: Glucose Point of Care 316 mg/dl (65-105)
[2024-06-09 08:00] VITALS: PULSE 67
[2024-06-09 08:28] VITALS: BP 160/62; PULSE 70; RESP 16; TEMP 36.3; O2SAT 97
--- NOTE | 2024-06-09 08:28 | P.PNIM_ITS ---
Progress Note: A&P Assessment and Plan (1) TIA (transient ischemic attack): Code(s): G45.9 - Transient cerebral ischemic attack, unspecified Status: Acute (2) Hypertension: Qualifiers: Hypertension type: unspecified Qualified Code(s): I10 - Essential (primary) hypertension Code(s): I10 - Essential (primary) hypertension Status: Acute (3) Transient weakness of left leg: Code(s): R29.898 - Other symptoms and signs involving the musculoskeletal system Status: Acute (4) Alteration in speech: Code(s): R47.89 - Other speech disturbances Status: Acute (5) Acquired hypothyroidism: Code(s): E03.9 - Hypothyroidism, unspecified Status: Acute (6) Type 2 diabetes mellitus with insulin therapy: Code(s): E11.9 - Type 2 diabetes mellitus without complications; Z79.4 - alf (current) use of insulin Status: Acute Plan acute ischemic stroke CT head shows no acute intracranial issues, CT head and neck showed proximal intracranial carotid artery stenosis 95% Continue aspirin 81 mg daily p.o., Plavix 75 mg daily p.o., Lipitor 40 mg daily p.o. Follow-up lipid panel, Pending echocardiogram with bubble study 1. Left ventricular chamber dimension is normal. 2. Left ventricular systolic function is normal, estimated at >70%. 3. There is mild concentric increased left ventricular wall thickness. 4. The left ventricular diastolic function is grade I diastolic dysfunction. 5. E/e' 11 is mildly elevated. 6. The mitral valve has moderately calcified leaflets and mildly calcified annulus. 7. No pulmonary hypertension, estimated pulmonary arterial systolic pressure is 36 mmHg. Brain MRI showed 8 mm focal acute infarct in the left centrum semiovale. EKG shows sinus rhythm and sinus tachy Telemetry monitoring: No significant arrhythmia is reported Consult neurologist Intracranial carotid artery stenosis CTA head neck showed Probable focal high-grade stenosis at the proximal intracranial carotid artery, approximately 95% degree. Evaluation somewhat suboptimal due to artifact from calcified plaque. 40% stenosis at the proximal right internal carotid artery. Continue statin I discussed case with Dr. Vasquez. Appreciate neurologist consultation Left internal carotid artery stenosis I called [facility] transfer center and discussed with vascular surgeon DR. Manuel Rollins at [facility]. He does not consider patient need urgent treatment,he see the patient in the office and scheduled treatment after 12 days of acute stroke. his office phone is [phone] I also discussed about vascular surgeon's plan with patient patient , and I gave them the phone number of the vascular surgeon for scheduled appointment Insulin-dependent diabetes Uncontrolled diabetes Continue glargine decrease 72 unit to 50 units Start aspart 6 units a.c. Start insulin sliding scale a.c. and q.h.s. Adjust medications accordingly Hypoglycemic protocol is initiated I am just aware today that [facility] not [facility] during hospitalization because we do not have the Lantus supplement Will provide glargine 72 units now. Continue sliding scale and aspart before each meal Resume home medication after discharge Acquired hypothyroidism Continue Synthroid 75 mcg daily p.o. Follow-up TSH: 5.5, FT4 1.1 Hyponatremia, dehydration Elevated BUN creatinine ratio 29/1.05 Sodium 130 POA Possible due to dehydration, possible SIADH due to the stroke Started normal saline IV 75 mL/hour, able to tolerate diet dc iv fluid add sodium chloride 1 g t.i.d. p.o. Follow-up primary doctor Essential hypertension hypertension permission is over Patient has uncontrolled hypertension 160/74 Resume home medications amlodipine 10 mg daily p.o., lisinopril 20 mg daily p.o., Start hydralazine IV 10 mg p.r.n. with parameters add hydrochlorothiazide 25 mg daily p.o. 06/09 Adjust medications accordingly UTI Received Bactrim Repeat urinalysis: No sign of infection consult youth care professional and PT OT for evaluation assisting placement, they recommend discharge patient home. Patient declines home health care Subjective Date/time seen: 06/09/24 08:28 Interval history: I saw and examined patient today. Patient still has slurred speech, denies dysphagia, patient denies choking when patient was eating and drinking. Patient also denies double vision blurred vision lightheadedness. Patient is able to ambulate with stable gait. Patient denies chest pain abdomen pain nausea vomiting diarrhea. Patient afebrile, blood pressure is not well controlled Exam Narrative: GENERAL: Pleasant, in no acute distress. Well-nourished. - EYES: EOMI. Anicteric. - HENT: Moist mucous membranes. - LUNGS: Clear to auscultation bilateral ly, no wheezing, rhonchi, or rales. - CARDIOVASCULAR: Regular rate and rhyth m. No murmur. No JVD. - ABDOMEN: Soft, non-tender and non-dist ended. No palpable masses. - EXTREMITIES: No edema. Peripheral puls es 2+. Non-tender. - NEUROLOGIC: No focal neurological defi cits. Right facial droop, slurred speech. - PSYCHIATRIC: Awake, Alert and oriented x 3. Appropriate mood and affect. - SKIN: No rashes or lesions. Warm. - LYMPH: No cervical lymphadenopathy. Objective Data Vital Signs Vital Signs: Vital Signs - 24 hr 06/08/24 09:02 06/08/24 12:00 06/08/24 14:00 Temperature 97.3 F L Pulse Rate 77 69 68 Respiratory Rate 18 Blood Pressure 120/77 124/76 Pulse Oximetry 97 96 06/08/24 16:00 06/08/24 18:02 06/08/24 20:00 Temperature 97.9 F Pulse Rate 70 62 Respiratory Rate 18 Blood Pressure 164/72 H 148/58 H Pulse Oximetry 99 06/08/24 20:00 06/08/24 23:44 06/09/24 00:00 Temperature 98.4 F Pulse Rate 63 76 75 Respiratory Rate 16 Blood Pressure 164/62 H Pulse Oximetry 96 06/09/24 04:00 06/09/24 04:00 Temperature 98.2 F Pulse Rate 69 70 Respiratory Rate 18 Blood Pressure 164/72 H Pulse Oximetry 98 Intake/Output Intake/Output: Intake & Output 06/06/24 06/07/24 06/08/24 06/09/24 23:59 23:59 23:59 23:59 Intake Total 3440 1183.8 300 Output Total 800 1250 Balance 2640 -66.2 300 Meds/Results Medications: Active Medications Generic Name Dose Route Start Last Admin Trade Name Freq PRN Reason Stop Dose Admin Acetaminophen 650 mg 06/07/24 03:14 06/07/24 08:58 Acetaminophen 325 Mg Tablet PO 650 mg Q4H PRN Administration Mild Pain (1-3) or Fever Amlodipine Besylate 10 mg 06/09/24 09:00 Amlodipine Besylate 10 Mg Tablet PO DAILY [facility] Aspirin 81 mg 06/07/24 09:00 06/08/24 07:59 Aspirin 81 Mg Enteric Tablet PO 81 mg DAILY [facility] Administration Atorvastatin Calcium 40 mg 06/07/24 09:00 06/08/24 07:59 Atorvastatin 40 Mg Tablet PO 40 mg DAILY CAITLYN Administration Clopidogrel Bisulfate 75 mg 06/07/24 09:00 06/08/24 07:59 Clopidogrel Bisulfate 75 Mg Tablet PO 75 mg DAILY CAITLYN Administration Dextrose 12.5 gm 06/07/24 08:37 Dextrose 50% 25 Gm/50 Ml Syringe IV PUSH PRN PRN Hypoglycemia Protocol Enoxaparin Sodium 40 mg 06/07/24 09:00 06/08/24 07:59 Enoxaparin 40 Mg/0.4 Ml Syringe SUB-Q 40 mg DAILY CAITLYN Administration Glucagon 1 mg 06/07/24 08:37 Glucagon For Inj 1 Mg Vial IM PRN PRN Hypoglycemia Protocol Glucose 15 gm 06/07/24 08:37 Glucose Oral Gel 15 Gm Of Glucse In 37.5 Gm Tube PO PRN PRN Hypoglycemia Protocol Hydralazine HCl 10 mg 06/07/24 10:28 06/08/24 07:59 Hydralazine Hcl 20 Mg/Ml Vial IV PUSH 10 mg Q6H PRN Administration Blood Pressure - High Dextrose 1,000 mls @ 100 mls/hr 06/07/24 08:37 Dextrose 5% 1,000 Ml IVPB PRN PRN Hypoglycemia Protocol Insulin Aspart 6 units 06/07/24 12:00 06/08/24 17:24 Insulin Aspart (*Bkc) 100 Units/Ml SUB-Q 6 units TIDWM CAITLYN Administration Insulin Aspart 4 - 8 units 06/07/24 12:00 06/08/24 17:25 Insulin Aspart (*Bkc) 100 Units/Ml SUB-Q 5 units TIDWM CAITLYN Administration Protocol Insulin Aspart 2 - 4 units 06/07/24 21:00 06/08/24 21:04 Insulin Aspart (*Bkc) 100 Units/Ml SUB-Q Not Given HS CAITLYN Protocol Levothyroxine Sodium 75 mcg 06/07/24 11:00 06/09/24 05:59 Levothyroxine Sodium 75 Mcg Tablet PO 75 mcg DAILY@0630 CAITLYN Administration Lisinopril 20 mg 06/09/24 09:00 Lisinopril 20 Mg Tablet PO QAM CAITLYN Melatonin 5 mg 06/08/24 21:00 06/08/24 21:04 Melatonin 5 Mg Tablet PO 5 mg HS CAITLYN Administration Metoclopramide HCl 10 mg 06/07/24 08:37 Metoclopramide Hcl Inj 10 Mg/2 Ml Vial IV PUSH Q6H PRN Nausea And Vomiting Miscellaneous Information 1 each 06/07/24 00:01 Insulin Glargine U-300 Conc [Toujeo Max U-300 Solostar] 300 Unit/Ml (3 Is Nonformulary, C XX 07/07/24 00:00 CLARIFY CAITLYN Non-Formulary Medication 72 unit 06/07/24 09:00 Insulin Glargine U-300 Conc [Toujeo Max U-300 Solostar] SUB-Q 07/07/24 08:59 QAM [facility] Ondansetron HCl 4 mg 06/07/24 03:14 Ondansetron Inj 4 Mg/2 Ml Vial IV PUSH Q4H PRN Nausea Perflutren Lipid Microsphere 0 ml 06/07/24 08:37 Perflutren Lipid Microspheres 1.5 Ml Vial Diluted To 10 Ml Total Volume IV PUSH 06/10/24 08:39 ONCE PRN adequate visualization Protocol Propranolol HCl 60 mg 06/07/24 09:00 06/08/24 07:59 Propranolol Hcl 60 Mg Capsule Cr PO 60 mg DAILY CAITLYN Administration Radiology Results: ITS Impressions Chest X-Ray 06/07/24 05:21 Impression: Clear lungs. Head CT 06/07/24 05:22 Impression: No intracranial hemorrhage, mass, or acute infarct. Atrophy and chronic white matter changes, as above. Head/Neck CTA 06/07/24 06:03 Impression: Probable focal high-grade stenosis at the proximal intracranial carotid artery, approximately 95% degree. Evaluation somewhat suboptimal due to artifact from calcified plaque. 40% stenosis at the proximal right internal carotid artery. 12 mm left upper lobe pulmonary nodule. Please see further details from recent chest CT dated 05/30/2023. Brain MRI 06/07/24 13:31 IMPRESSION: 8 mm focal acute infarct in the left centrum semiovale. Moderate background chronic microvascular ischemic changes. Labs Labs: Laboratory Results - last 24 hr 06/08/24 06/08/24 06/08/24 09:10 11:23 16:36 WBC RBC Hgb Hct MCV MCH MCHC RDW Plt Count MPV Immature Gran % (Auto) Neut % (Auto) Lymph % (Auto) [place] % (Auto) Eos % (Auto) Baso % (Auto) Lymph # (Auto) [place] # (Auto) Eos # (Auto) Baso # (Auto) Abs Immat Gran (auto) Absolute Neuts (auto) Absolute Nucleated RBC Nucleated RBC % Sodium Potassium Chloride Carbon Dioxide Anion Gap BUN Creatinine Estim Creat Clear Calc Estimated GFR Glucose POC Capillary Glucose 194 H 173 H 277 H Calcium 06/08/24 06/09/24 06/09/24 20:55 06:23 07:39 WBC 5.5 RBC 4.10 L Hgb 11.9 L Hct 36.9 L MCV 90.0 MCH 29.0 MCHC 32.2 RDW 13.1 Plt Count 176 MPV 9.5 Immature Gran % (Auto) 0.2 Neut % (Auto) 58.3 Lymph % (Auto) 30.1 [place] % (Auto) 8.0 Eos % (Auto) 2.7 Baso % (Auto) 0.7 Lymph # (Auto) 1.66 [place] # (Auto) 0.4 Eos # (Auto) 0.2 Baso # (Auto) 0.0 Abs Immat Gran (auto) 0.01 Absolute Neuts (auto) 3.2 Absolute Nucleated RBC 0.000 Nucleated RBC % 0.0 Sodium 128 L Potassium 4.4 Chloride 97 L Carbon Dioxide 23 Anion Gap 8 BUN 19 H Creatinine 0.92 Estim Creat Clear Calc 47 Estimated GFR 60 Glucose 287 H POC Capillary Glucose 139 H 316 H Calcium 9.4
[2024-06-09 08:29] VITALS: PULSE 70
[2024-06-09] MEDS: amLODIPine BESYLATE 10 MG TABLET PO (08:29)
[2024-06-09] MEDS: ATORVASTATIN 40 MG TABLET PO (08:29)
[2024-06-09] MEDS: lisinopriL 20 MG TABLET PO (08:29)
[2024-06-09] MEDS: ASPIRIN 81 MG ENTERIC TABLET PO (08:29)
[2024-06-09] MEDS: PROPRANOLOL HCL 60 MG CAPSULE CR PO (08:29)
[2024-06-09] MEDS: INSULIN ASPART (*BKC) 100 UNITS/ML 6 UNITS SUB-Q ×2 (08:52→13:24)
[2024-06-09] MEDS: INSULIN ASPART (*BKC) 100 UNITS/ML SUB-Q ×2 (08:52→13:25)
[2024-06-09 11:22] LABS: Glucose Point of Care 263 mg/dl (65-105)
--- NOTE | 2024-06-09 11:38 | P.DS_ITS ---
DS: Admitting Diagnosis Discharge Date 06/09/24 Admitting Diagnosis (1) TIA (transient ischemic attack): Code(s): G45.9 - Transient cerebral ischemic attack, unspecified Status: Acute (2) Hypertension: Qualifiers: Hypertension type: unspecified Qualified Code(s): I10 - Essential (primary) hypertension Code(s): I10 - Essential (primary) hypertension Status: Acute (3) Transient weakness of left leg: Code(s): R29.898 - Other symptoms and signs involving the musculoskeletal system Status: Acute (4) Alteration in speech: Code(s): R47.89 - Other speech disturbances Status: Acute (5) Acquired hypothyroidism: Code(s): E03.9 - Hypothyroidism, unspecified Status: Acute (6) Type 2 diabetes mellitus with insulin therapy: Code(s): E11.9 - Type 2 diabetes mellitus without complications; Z79.4 - assisted (current) use of insulin Status: Acute DS: Discharge Diagnosis Discharge Diagnosis (1) TIA (transient ischemic attack): Code(s): G45.9 - Transient cerebral ischemic attack, unspecified Status: Acute (2) Hypertension: Qualifiers: Hypertension type: unspecified Qualified Code(s): I10 - Essential (primary) hypertension Code(s): I10 - Essential (primary) hypertension Status: Acute (3) Transient weakness of left leg: Code(s): R29.898 - Other symptoms and signs involving the musculoskeletal system Status: Acute (4) Alteration in speech: Code(s): R47.89 - Other speech disturbances Status: Acute (5) Acquired hypothyroidism: Code(s): E03.9 - Hypothyroidism, unspecified Status: Acute (6) Type 2 diabetes mellitus with insulin therapy: Code(s): E11.9 - Type 2 diabetes mellitus without complications; Z79.4 - assisted (current) use of insulin Status: Acute DS: Summary Hospital Course Hospital Course: Patient is a 73 y/o female with history of hypertension, hyperlipidemia, TA, hypothyroidism, diabetes on insulin, brought to ED with a chief complaint of weakness of left leg. Patient has been not feeling well since yesterday morning, patient also had some weakness in the left arm about 10:00 a.m. yesterday. When patient ambulate, patient feels labs like heavy and had to drag left leg.. Patient also had some facial drooping and abnormal speaking with abnormal sensation of tongue. Symptoms persists about 30 minutes. Patient had intermittent lightheadedness.. Patient denies chest pain, shortness of breath, nausea vomiting diarrhea . Chronic patient is on Bactrim for UTI. Upon arrival in the ED, patient was afebrile, blood pressure was not controlled no O2 desaturation on room air. I read the EKG EKG shows sinus rhythm no specific ST or T-wave changes, CBC unremarkable, chemistry showed hyponatremia 130 , uncontrolled glucose 302. CT head shows no acute intracranial issues, CT head neck shows proximal intracranial carotid artery stenosis 90%. Patient received aspirin The following med issues have been addressed during hospitalization acute ischemic stroke CT head shows no acute intracranial issues, CT head and neck showed proximal intracranial carotid artery stenosis 95% Continue aspirin 81 mg daily p.o., Plavix 75 mg daily p.o., Lipitor 40 mg daily p.o. Follow-up lipid panel, Pending echocardiogram with bubble study 1. Left ventricular chamber dimension is normal. 2. Left ventricular systolic function is normal, estimated at >70%. 3. There is mild concentric increased left ventricular wall thickness. 4. The left ventricular diastolic function is grade I diastolic dysfunction. 5. E/e' 11 is mildly elevated. 6. The mitral valve has moderately calcified leaflets and mildly calcified annulus. 7. No pulmonary hypertension, estimated pulmonary arterial systolic pressure is 36 mmHg. Brain MRI showed 8 mm focal acute infarct in the left centrum semiovale. EKG shows sinus rhythm and sinus tachy Telemetry monitoring: No significant arrhythmia is reported Consult neurologist Intracranial carotid artery stenosis CTA head neck showed Probable focal high-grade stenosis at the proximal intracranial carotid artery, approximately 95% degree. Evaluation somewhat suboptimal due to artifact from calcified plaque. 40% stenosis at the proximal right internal carotid artery. Continue statin I discussed case with Dr. Vasquez. Appreciate neurologist consultation Left internal carotid artery stenosis I called [facility] transfer center and discussed with vascular surgeon DR. Manuel Rollins at [facility]. He does not consider patient need urgent treatment,he see the patient in the office and scheduled treatment after 12 days of acute stroke. his office phone is [phone] I also discussed about vascular surgeon's plan with patient patient , and I gave them the phone number of the vascular surgeon for scheduled appointment Insulin-dependent diabetes Uncontrolled diabetes Continue glargine decrease 72 unit to 50 units Start aspart 6 units a.c. Start insulin sliding scale a.c. and q.h.s. Adjust medications accordingly Hypoglycemic protocol is initiated I am just aware today [facility] during hospitalization because we do not have the Lantus supplement Will provide glargine 72 units now. Continue sliding scale and aspart before each meal Resume home medication after discharge Acquired hypothyroidism Continue Synthroid 75 mcg daily p.o. Follow-up TSH: 5.5, FT4 1.1 Hyponatremia, dehydration Elevated BUN creatinine ratio 29/1.05 Sodium 130 POA Possible due to dehydration, possible SIADH due to the stroke Started normal saline IV 75 mL/hour, able to tolerate diet dc iv fluid add sodium chloride 1 g t.i.d. p.o. Follow-up primary doctor Essential hypertension hypertension permission is over Patient has uncontrolled hypertension 160/74 Resume home medications amlodipine 10 mg daily p.o., lisinopril 20 mg daily p.o., Start hydralazine IV 10 mg p.r.n. with parameters add hydrochlorothiazide 25 mg daily p.o. 06/09 Adjust medications accordingly UTI Received Bactrim Repeat urinalysis: No sign of infection consult acute care certified nursing assistant and PT OT for evaluation assisting placement, they recommend discharge patient home. Patient declines home health care Time Spent with Patient Time attestation: Total time spent providing and/or coordinating discharge services: Exam Narrative: GENERAL: Pleasant, in no acute distress. Well-nourished. - EYES: EOMI. Anicteric. - HENT: Moist mucous membranes. - LUNGS: Clear to auscultation bilateral ly, no wheezing, rhonchi, or rales. - CARDIOVASCULAR: Regular rate and rhyth m. No murmur. No JVD. - ABDOMEN: Soft, non-tender and non-dist ended. No palpable masses. - EXTREMITIES: No edema. Peripheral puls es 2+. Non-tender. - NEUROLOGIC: No focal neurological defi cits. Right facial droop, slurred speech. - PSYCHIATRIC: Awake, Alert and oriented x 3. Appropriate mood and affect. - SKIN: No rashes or lesions. Warm. - LYMPH: No cervical lymphadenopathy. DS: Data Data Completed and Pending Labs on day of discharge: Labs from last 24 hours 0106/09/24 06/09/24 11:07 07:39 06:23 WBC 5.5 RBC 4.10 L Hgb 11.9 L Hct 36.9 L MCV 90.0 MCH 29.0 MCHC 32.2 RDW 13.1 Plt Count 176 MPV 9.5 Immature Gran % (Auto) 0.2 Neut % (Auto) 58.3 Lymph % (Auto) 30.1 [place] % (Auto) 8.0 Eos % (Auto) 2.7 Baso % (Auto) 0.7 Lymph # (Auto) 1.66 [place] # (Auto) 0.4 Eos # (Auto) 0.2 Baso # (Auto) 0.0 Abs Immat Gran (auto) 0.01 Absolute Neuts (auto) 3.2 Absolute Nucleated RBC 0.000 Nucleated RBC % 0.0 Sodium 128 L Potassium 4.4 Chloride 97 L Carbon Dioxide 23 Anion Gap 8 BUN 19 H Creatinine 0.92 Estim Creat Clear Calc 47 Estimated GFR 60 Glucose 287 H POC Capillary Glucose 263 H 316 H Calcium 9.4 06/08/24 06/08/24 06/08/24 20:55 16:36 11:23 WBC RBC Hgb Hct MCV MCH MCHC RDW Plt Count MPV Immature Gran % (Auto) Neut % (Auto) Lymph % (Auto) [place] % (Auto) Eos % (Auto) Baso % (Auto) Lymph # (Auto) [place] # (Auto) Eos # (Auto) Baso # (Auto) Abs Immat Gran (auto) Absolute Neuts (auto) Absolute Nucleated RBC Nucleated RBC % Sodium Potassium Chloride Carbon Dioxide Anion Gap BUN Creatinine Estim Creat Clear Calc Estimated GFR Glucose POC Capillary Glucose 139 H 277 H 173 H Calcium Discharge Plan Discharge Attending physician on discharge: Justina Andrews Consulting providers: Nino Vasquez Discharging Clinician: Justina Andrews Anticipated Discharge Date/Time: 06/09/24 11:40 Patient Disposition: Home Health Service Activity: as tolerated Diet: as tolerated and heart healthy Patient Instructions: Antibiotic Form Patient Language: Swedish Stand Alone Forms: General Discharge Information Follow-up/Referrals: Rai Rodriguez MD [Primary Care Provider] - (Patient needs to see primary care doctor in 1 week) Nino Vasquez MD [Physician] - (Patient needs to see neurologist at scheduled appointment) Discharge Medications: Continued (DME) Dexcom G7 Sensor Device See Rx Instructions .Route Qty: 1 5RF Rx Instructions: As directed (DME) Dexcom G7 Fagot Heater Misc See Rx Instructions .Route Qty: 1 5RF Rx Instructions: As directed insulin glargine U-300 conc [Toujeo Max U-300 SoloStar] 300 unit/mL (3 mL) insulin pen 72 unit subcut QAM magnesium oxide 400 mg magnesium capsule 400 mg PO DAILY Qty: 30 0RF aspirin 81 mg tablet,delayed release (DR/EC) 81 mg PO DAILY Qty: 30 0RF (DME) pen needle, diabetic [BD Ultra-Fine Short Pen Needle] 31 gauge x 5/16 needle See Rx Instructions .Route Qty: 100 0RF Rx Instructions: As directed omega 9-sal-aan-fish oil [Fish Oil] 1,000 mg (120 mg-180 mg) capsule 1 cap PO DAILY coenzyme Q10 [Co Q-10] 10 mg capsule 10 mg PO ONCE Prosight Tablet 1 tablet PO DAILY Women's 50 + Vitapak 400 mcg/200 mg -240 mg Combo Pack 1 pkg PO DAILY atorvastatin [Lipitor] 40 mg tablet 40 mg PO DAILY propranolol [Inderal LA] 60 mg capsule,extended release 24 hr 60 mg PO DAILY clopidogrel 75 mg tablet 75 mg PO DAILY Qty: 90 2RF levothyroxine 75 mcg tablet 75 mcg PO DAILY Qty: 90 1RF rosuvastatin 20 mg tablet See Rx Instructions .ROUTE .COMPLEX Qty: 90 1RF Dose Instruction: TAKE 1 TABLET BY MOUTH EVERY EVENING Rx Instructions: TAKE 1 TABLET BY MOUTH EVERY EVENING amlodipine-benazepril 5-20 mg capsule See Rx Instructions .ROUTE .COMPLEX Qty: 90 1RF Dose Instruction: TAKE 1 CAPSULE BY MOUTH DAILY Rx Instructions: TAKE 1 CAPSULE BY MOUTH DAILY insulin aspart U-100 [Novolog FlexPen U-100 Insulin] 100 unit/mL (3 mL) insulin pen 1 sliding scale dose subcut USEASDIRECTD Qty: 15 5RF Rx Instructions: BS 150-200 18 units BS 201-250 20 units BS 251-300 22 units BS 301-350 24 units BS 351-400 26 units metformin 1,000 mg tablet 1,000 mg PO BID 90 Days Qty: 180 1RF Discontinued sulfamethoxazole-trimethoprim 800-160 mg tablet 1 tablet PO BID Date of admission: 06/07/24 03:15 Primary Care Provider: Rai Rodriguez Admitting Provider: Betty Amador Attending physician on admission: Betty Amador Condition: Stable
[2024-06-09] MEDS: ENOXAPARIN 40 MG/0.4 ML SYRINGE SUB-Q (11:39)
[2024-06-09] MEDS: hydroCHLOROthiazide 25 MG TABLET PO (11:39)
[2024-06-09] MEDS: CLOPIDOGREL BISULFATE 75 MG TABLET PO (11:39)
[2024-06-09] MEDS: INSULIN GLARGINE (*BKC) 100 UNITS/ML 55 UNITS SUB-Q (11:40)
[2024-06-09 12:00] VITALS: BP 165/61; PULSE 66; PULSE 69; RESP 16; TEMP 36.4; O2SAT 99
--- NOTE | 2024-06-09 12:04 | WPDNEUROPN ---
Subjective Date/time seen: 06/09/24 12:04 Interval history: came for the follow-up as the question raised by the family that she is being transferred to the other physician that his vascular surgeon who will see her in about 12 days in the office and she was assuming she will transfer from this institution to the [facility] directly. not happened to be in the room. I explained to the patient that right now she is getting the anti-platelet medication and because she just had the new TIA and stroke she will not be immediately taken to the OR and the vascular surgeon would like to wait 10 to 14 days he will probably see her 1st in the office in about 12 days and then he will be admitted according to his schedule she fell satisfied at this stage her was not in the room but she said if he comes to the ER or hospital she would like to talk to him as well I have mentioned to the nurses. Otherwise no change in the neurological treatment. Objective Data Vital Signs Vital Signs: Vital Signs - 24 hr 06/08/24 14:00 06/08/24 16:00 06/08/24 18:02 Temperature 36.3 C L Pulse Rate 68 70 Respiratory Rate 18 Blood Pressure 124/76 164/72 H Pulse Oximetry 96 Oxygen Delivery 06/08/24 20:00 06/08/24 20:00 06/08/24 23:44 Temperature 36.6 C 36.9 C Pulse Rate 62 63 76 Respiratory Rate 18 16 Blood Pressure 148/58 H 164/62 H Pulse Oximetry 99 96 Oxygen Delivery 06/09/24 00:00 06/09/24 04:00 06/09/24 04:00 Temperature 36.8 C Pulse Rate 75 69 70 Respiratory Rate 18 Blood Pressure 164/72 H Pulse Oximetry 98 Oxygen Delivery 06/09/24 08:00 06/09/24 08:28 06/09/24 08:29 Temperature 36.3 C L Pulse Rate 70 70 Respiratory Rate 16 Blood Pressure 160/62 H Pulse Oximetry 97 Oxygen Delivery Room Air Intake/Output Intake/Output: Intake & Output 06/06/24 06/07/24 06/08/24 06/09/24 23:59 23:59 23:59 23:59 Intake Total 3440 1183.8 500 Output Total 800 1250 1000 Balance 2640 -66.2 -500 Meds/Results Medications: Active Medications Generic Name Dose Route Start Last Admin Trade Name Freq PRN Reason Stop Dose Admin Acetaminophen 650 mg 06/07/24 03:14 06/07/24 08:58 Acetaminophen 325 Mg Tablet PO 650 mg Q4H PRN Administration Mild Pain (1-3) or Fever Amlodipine Besylate 10 mg 06/09/24 09:00 06/09/24 08:29 Amlodipine Besylate 10 Mg Tablet PO 10 mg DAILY CAITLYN Administration Aspirin 81 mg 06/07/24 09:00 06/09/24 08:29 Aspirin 81 Mg Enteric Tablet PO 81 mg DAILY CAITLYN Administration Atorvastatin Calcium 40 mg 06/07/24 09:00 06/09/24 08:29 Atorvastatin 40 Mg Tablet PO 40 mg DAILY CAITLYN Administration Clopidogrel Bisulfate 75 mg 06/07/24 09:00 06/09/24 11:39 Clopidogrel Bisulfate 75 Mg Tablet PO 75 mg DAILY CAITLYN Administration Dextrose 12.5 gm 06/07/24 08:37 Dextrose 50% 25 Gm/50 Ml Syringe IV PUSH PRN PRN Hypoglycemia Protocol Enoxaparin Sodium 40 mg 06/07/24 09:00 06/09/24 11:39 Enoxaparin 40 Mg/0.4 Ml Syringe SUB-Q 40 mg DAILY CAITLYN Administration Glucagon 1 mg 06/07/24 08:37 Glucagon For Inj 1 Mg Vial IM PRN PRN Hypoglycemia Protocol Glucose 15 gm 06/07/24 08:37 Glucose Oral Gel 15 Gm Of Glucse In 37.5 Gm Tube PO PRN PRN Hypoglycemia Protocol Hydralazine HCl 10 mg 06/07/24 10:28 06/08/24 07:59 Hydralazine Hcl 20 Mg/Ml Vial IV PUSH 10 mg Q6H PRN Administration Blood Pressure - High Hydrochlorothiazide 25 mg 06/09/24 09:00 06/09/24 11:39 Hydrochlorothiazide 25 Mg Tablet PO 25 mg QAM CAITLYN Administration Dextrose 1,000 mls @ 100 mls/hr 06/07/24 08:37 Dextrose 5% 1,000 Ml IVPB PRN PRN Hypoglycemia Protocol Insulin Aspart 6 units 06/07/24 12:00 06/09/24 08:52 Insulin Aspart (*Bkc) 100 Units/Ml SUB-Q 6 units TIDWM CAITLYN Administration Insulin Aspart 4 - 8 units 06/07/24 12:00 06/09/24 08:52 Insulin Aspart (*Bkc) 100 Units/Ml SUB-Q 5 units TIDWM CAITLYN Administration Protocol Insulin Aspart 2 - 4 units 06/07/24 21:00 06/08/24 21:04 Insulin Aspart (*Bkc) 100 Units/Ml SUB-Q Not Given HS CAITLYN Protocol Insulin Glargine 55 units 06/09/24 10:30 06/09/24 11:40 Insulin Glargine (*Bkc) 100 Units/Ml SUB-Q 55 units QAM CAITLYN Administration Levothyroxine Sodium 75 mcg 06/07/24 11:00 06/09/24 05:59 Levothyroxine Sodium 75 Mcg Tablet PO 75 mcg DAILY@0630 CAITLYN Administration Lisinopril 20 mg 06/09/24 09:00 06/09/24 08:29 Lisinopril 20 Mg Tablet PO 20 mg QAM CAITLYN Administration Melatonin 5 mg 06/08/24 21:00 06/08/24 21:04 Melatonin 5 Mg Tablet PO 5 mg HS CAITLYN Administration Metoclopramide HCl 10 mg 06/07/24 08:37 Metoclopramide Hcl Inj 10 Mg/2 Ml Vial IV PUSH Q6H PRN Nausea And Vomiting Ondansetron HCl 4 mg 06/07/24 03:14 Ondansetron Inj 4 Mg/2 Ml Vial IV PUSH Q4H PRN Nausea Perflutren Lipid Microsphere 0 ml 06/07/24 08:37 Perflutren Lipid Microspheres 1.5 Ml Vial Diluted To 10 Ml Total Volume IV PUSH 06/10/24 08:39 ONCE PRN adequate visualization Protocol Propranolol HCl 60 mg 06/07/24 09:00 06/09/24 08:29 Propranolol Hcl 60 Mg Capsule Cr PO 60 mg DAILY CAITLYN Administration Radiology Results: ITS Impressions Chest X-Ray 06/07/24 05:21 Impression: Clear lungs. Head CT 06/07/24 05:22 Impression: No intracranial hemorrhage, mass, or acute infarct. Atrophy and chronic white matter changes, as above. Head/Neck CTA 06/07/24 06:03 Impression: Probable focal high-grade stenosis at the proximal intracranial carotid artery, approximately 95% degree. Evaluation somewhat suboptimal due to artifact from calcified plaque. 40% stenosis at the proximal right internal carotid artery. 12 mm left upper lobe pulmonary nodule. Please see further details from recent chest CT dated 05/30/2023. Brain MRI 06/07/24 13:31 IMPRESSION: 8 mm focal acute infarct in the left centrum semiovale. Moderate background chronic microvascular ischemic changes. Labs Labs: Laboratory Results - last 24 hr 06/08/24 06/08/24 06/09/24 16:36 20:55 06:23 WBC 5.5 RBC 4.10 L Hgb 11.9 L Hct 36.9 L MCV 90.0 MCH 29.0 MCHC 32.2 RDW 13.1 Plt Count 176 MPV 9.5 Immature Gran % (Auto) 0.2 Neut % (Auto) 58.3 Lymph % (Auto) 30.1 [place] % (Auto) 8.0 Eos % (Auto) 2.7 Baso % (Auto) 0.7 Lymph # (Auto) 1.66 [place] # (Auto) 0.4 Eos # (Auto) 0.2 Baso # (Auto) 0.0 Abs Immat Gran (auto) 0.01 Absolute Neuts (auto) 3.2 Absolute Nucleated RBC 0.000 Nucleated RBC % 0.0 Sodium 128 L Potassium 4.4 Chloride 97 L Carbon Dioxide 23 Anion Gap 8 BUN 19 H Creatinine 0.92 Estim Creat Clear Calc 47 Estimated GFR 60 Glucose 287 H POC Capillary Glucose 277 H 139 H Calcium 9.4 06/09/24 06/09/24 07:39 11:07 WBC RBC Hgb Hct MCV MCH MCHC RDW Plt Count MPV Immature Gran % (Auto) Neut % (Auto) Lymph % (Auto) [place] % (Auto) Eos % (Auto) Baso % (Auto) Lymph # (Auto) [place] # (Auto) Eos # (Auto) Baso # (Auto) Abs Immat Gran (auto) Absolute Neuts (auto) Absolute Nucleated RBC Nucleated RBC % Sodium Potassium Chloride Carbon Dioxide Anion Gap BUN Creatinine Estim Creat Clear Calc Estimated GFR Glucose POC Capillary Glucose 316 H 263 H Calcium
[2024-06-09 13:29] LABS: Glucose Point of Care 383 mg/dl (65-105)
--- NOTE | 2024-06-11 08:48 | PC.NURSE ---
Information given to Dr. Rollins's office after Dr. Andrews called and gave a referral. Called pt with information.
== END 2024-06-09 16:30 | disposition home or self-care (01) | DRG 69 ==
LOC: ANHED 06-07 03:32 → ANH3MEDSUR 06-08 11:06
PROVIDERS: Student in an Organized Health Care Education/Training Program; Admitting Provider Internal Medicine; Emergency Provider Physician Assistant; PCP Family Medicine; Visit Provider Hospitalist
DX: G45.9 Transient cerebral ischemic attack, unspecified (principal); R29.701 NIHSS score 1; I10 Essential (primary) hypertension; E03.9 Hypothyroidism, unspecified; E11.9 Type 2 diabetes mellitus without complications; E86.0 Dehydration; E87.1 Hypo-osmolality and hyponatremia; E78.5 Hyperlipidemia, unspecified; Z79.2 Long term (current) use of antibiotics; Z79.02 Long term (current) use of antithrombotics/antiplatelets; Z79.4 Long term (current) use of insulin; Z79.82 Long term (current) use of aspirin; Z79.84 Long term (current) use of oral hypoglycemic drugs; Z79.899 Other long term (current) drug therapy; Z86.73 Personal history of transient ischemic attack (TIA), and cerebral infarction without residual deficits; Z88.0 Allergy status to penicillin; Z88.8 Allergy status to other drugs, medicaments and biological substances; Z90.49 Acquired absence of other specified parts of digestive tract; Z98.890 Other specified postprocedural states
CPT/HCPCS: 36415; 70450; 70496; 70498; 70553; 71045; 80048; 80053; 80061; 81001; 82948; 84484; 85025; 85610; 85730; 87086; 93005; 93306; 96361; 96365; 96372; 96375; 96376; 99285; A9270; A9577; G0378; J0360; J1650; J1815; J2060; J7030; Q9967

== ENCOUNTER 2024-08-05 10:29 | Outpatient (CLI) | payer MEDICARE, SELFPAY ==
--- NOTE | ~2024-08-05 | PE_ITS ---
EXAMINATION: PET skull to mid thigh DATE: 08/05/2024 12:42 INDICATION: Other nonspecific abnormal finding of lung field. TECHNIQUE: Blood glucose level was 182 mg/dL. 9.437 mCi of 18-fluorodeoxyglucose (18-FDG) was adminis tered i.v. Low dose computed tomography (CT) images were acquired from the base of the brain to the p roximal thighs for attenuation correction and anatomic localization. Automated exposure control was e mployed. Dose-length product (DLP) was 1097 mGy-cm. Positron emission tomography (PET) images were ac quired in the same distribution. COMPARISON: Chest CT 05/30/2023 FINDINGS: Head/neck: There are no pathologically enlarged lymph nodes. Chest: There are a few nodules in the lungs measuring up to 10 mm in the left upper lobe without incr eased activity, stable from 05/30/2023. No pleural effusion. The heart size is normal. There are coron zeke artery calcifications. No pericardial effusion. Abdomen/pelvis/proximal thighs: The liver, spleen, pancreas, adrenal glands, and kidneys are normal. There are changes of cholecystectomy. There are no dilated loops of bowel. The appendix is normal. Th ere are no pathologically enlarged lymph nodes. There is no free intraperitoneal fluid. There are are as of old fat necrosis in the anterior abdominal wall. There is no osseous malignancy. IMPRESSION: 1. Pulmonary nodules measuring up to 10 mm without increased activity, stable from 05/30/2023, likely benign. Reviewed, dictated and finalized at location A. IMPRESSION: 1. Pulmonary nodules measuring up to 10 mm without increased activity, stable f rom 05/30/2023, likely benign.
[2024-08-05 11:13] LABS: Glucose Point of Care 182 mg/dl (65-105)
--- OUTSIDE RECORDS SUMMARY | 2024-08-05 11:39 | XMS_ITS | Referral Summary ---
Author Organization [facility] Address [address] [place] [address] Care Team Providers Care Clinical Operations Specialist Name Role Phone Rai Rodriguez MD Primary Care Provider [phone] Encounters Date Type Department Care Team Description 07/28/2024 2:00 PM CDT Office Visit [facility] Neurology [address] [place] [phone] Haydee Whitlock NP Suspected cerebrovascular accident (CVA) 07/14/2024 Telephone [facility] Neurology [address] [place] [phone] Adrienne Cintron PA 07/14/2024 10:30 AM SENIOR WINDOWS ADMINISTRATOR Office Visit [facility] Vascular at [address] [place] [phone] Manuel Rollins MD Left carotid artery stenosis (Primary Dx); Mixed hyperlipidemia; Primary hypertension 06/28/2024 Telephone [facility] Neurology [address] [place] [phone] ProviderColby MD NEW PATIENT REFERRAL (SCHEDULE NEW PATIENT ) 06/24/2024 2:20 PM SENIOR WINDOWS ADMINISTRATOR - 06/27/2024 4:27 PM SENIOR WINDOWS ADMINISTRATOR Hospital Encounter [address] [address] Pau Ngo MD Terrell, Leslie Marie, DO Lun, Yu, MD Suspected cerebrovascular accident (CVA) (Primary Dx); Left carotid artery stenosis; Hypertensive encephalopathy; Altered mental status, unspecified altered mental status type; Hypertensive emergency; Type 2 diabetes mellitus with other specified complication, without long-term current use of insulin (HCC) Discharge Disposition: Discharge to home or self care 06/24/2024 10:30 AM SENIOR WINDOWS ADMINISTRATOR - 06/24/2024 11:30 AM SENIOR WINDOWS ADMINISTRATOR Surgery [facility] Cardiac [employer] [address] [place] [phone] Manuel Rollins MD LEFT CAROTID ARTERY ANGIOGRAM 06/24/2024 8:25 AM SENIOR WINDOWS ADMINISTRATOR - 06/24/2024 2:08 PM SENIOR WINDOWS ADMINISTRATOR Hospital Encounter [facility] Cardiac [employer] [address] [place] [phone] Manuel Rollins MD Left carotid artery stenosis Discharge Disposition: Still a patient 06/15/2024 Documentation [facility] Medical [facility] Vascular and Vein Surgery [address] [place] [phone] Taryn Calero RN 06/14/2024 2:26 PM SENIOR WINDOWS ADMINISTRATOR - 06/14/2024 11:59 PM SENIOR WINDOWS ADMINISTRATOR Hospital Encounter [facility] [address] [place] [address] [place] [phone] Carotid stenosis, bilateral Discharge Disposition: Discharge to home or self care 06/14/2024 Orders Only [facility] Medical [facility] V[facility] and Vein Surgery [address] [place] [phone] Manuel Rollins MD Carotid stenosis, bilateral (Primary Dx) 06/14/2024 1:45 PM SENIOR WINDOWS ADMINISTRATOR Office Visit [facility] Vascular and Vein Surgery [address] [place] [phone] Manuel Rollins MD Left carotid artery stenosis (Primary Dx); Stenosis of carotid artery, unspecified laterality; Mixed hyperlipidemia; Primary hypertension 06/07/2024 3:20 AM SENIOR WINDOWS ADMINISTRATOR - 06/07/2024 11:59 PM SENIOR WINDOWS ADMINISTRATOR Hospital Encounter [facility] [employer] [address] [place] [address] [place] [address] Discharge Disposition: Discharge to home or self care 06/07/2024 - 06/07/2024 11:59 PM SENIOR WINDOWS ADMINISTRATOR Hospital Encounter [facility] [employer] [address] [facility] [place] [address] Discharge Disposition: Discharge to home or self care 06/06/2024 10:20 PM SENIOR WINDOWS ADMINISTRATOR - 06/06/2024 11:59 PM SENIOR WINDOWS ADMINISTRATOR Hospital Encounter [facility] [employer] [address] [place] [address] Discharge Disposition: Discharge to home or self care from Last 3 Months Allergies Active Allergy Reactions Criticality Noted Date Comments Amoxicillin Venlafaxine Palpitations Low 06/24/2024 Semaglutide Anaphylaxis High 06/24/2024 Tramadol Medications levothyroxine (SYNTHROID) 75 mcg tablet Take 1 tablet (75 mcg total) by mouth daily 01/14/20 18 Active aspirin 81 mg enteric coated tablet Take 1 tablet (81 mg total) by mouth daily Active insulin glargine (TOUJEO) 300 unit/mL (1.5 mL) pen for injection Inject 72 Units under the skin every morning Active coenzyme Q10 10 mg capsule Take 1 capsule (10 mg total) by mouth daily Active omega 6-pon-ppn-fish oil 1,000 (120-180) mg capsule Take 1 capsule (1,000 mg total) by mouth daily Active amLODIPine-benaz epriL (LOTREL 5-20) 5-20 mg per capsule Take 1 capsule by mouth daily Active insulin aspart (NovoLOG) 100 unit/mL (3 mL) pen for injection Inject 18-26 Units under the skin 3 (three) times a day with meals Blood sugar level = Units of insulin/orders 150-200 = 18 units 201-250 = 20 units 251-300 = 22 units 301-350 = 24 units 351-400 = 26 units Active metFORMIN (GLUCOPHAGE) 1,000 mg tablet Take 1 tablet (1,000 mg total) by mouth 2 (two) times a day with meals Active therapeutic multivitamin (THERA) tablet Take 1 tablet by mouth daily Active atorvastatin (LIPITOR) 40 mg tablet Take 1 tablet (40 mg total) by mouth daily 30 tablet 1 06/28/19 25 026 Active Additional Information Patient not taking.Reported on 07/28/2024 rosuvastatin (CRESTOR) 40 mg tablet Take 1 tablet (40 mg total) by mouth daily Active propranoloL (INDERAL) 10 mg tablet Take 1 tablet (10 mg total) by mouth 2 (two) times a day 60 tablet 2 07/29/19 25 025 Active clopidogreL (PLAVIX) 75 mg tablet Take 1 tablet (75 mg total) by mouth daily 90 tablet 1 07/29/19 25 025 Active clopidogreL (PLAVIX) 75 mg tablet Take 1 tablet (75 mg total) by mouth daily 025 Discontin ued(Reord er) Active Problems Problem Noted Date Diagnosed Date Suspected cerebrovascular accident (CVA) 025 Left carotid artery stenosis 06/15/2024 Assessment & Plan (07/15/2024 2:43 PM SENIOR WINDOWS ADMINISTRATOR): Status post diagnostic left carotid angiogram to rule out any significant carotid disease, was found to have no significant carotid disease on her angiogram, postoperatively had a ischemic stroke likely worsening of her prior stroke due to extreme fluctuations in her blood pressure, has been recovering well. From my standpoint needs no further evaluation, her CTA which showed a high-grade stenosis was inaccurate. Would recommend continuing risk factor modification with ASA statin therapy and good blood pressure control can follow up me as needed. Assessment & Plan (06/21/2024 2:38 PM SENIOR WINDOWS ADMINISTRATOR): Discrepancy between her carotid duplex which showed no evidence of significant disease and CTA head and neck which showed severe disease. Overall her stroke is likely not from her carotid however if she has evidence of greater than 80% stenosis on subsequent imaging I would recommend intervention. Risks benefits alternatives to a carotid angiogram were discussed, risks including bleeding, infection, perforation dissection, stroke, need further surgery. They wished to proceed. Diabetic hypoglycemia 10/27/2013 Hyperlipidemia 10/27/2013 Assessment & Plan (07/15/2024 2:51 PM SENIOR WINDOWS ADMINISTRATOR): Stable continue Lipitor Assessment & Plan (06/21/2024 2:38 PM SENIOR WINDOWS ADMINISTRATOR): Stable continue Lipitor Hypertension 10/27/2013 Assessment & Plan (07/15/2024 2:43 PM SENIOR WINDOWS ADMINISTRATOR): Continue amlodipine and benazepril, I suspect during the day she has extreme fluctuations in her blood pressure I have recommended follow up with her PCP. Assessment & Plan (06/21/2024 2:38 PM SENIOR WINDOWS ADMINISTRATOR): Stable continue amlodipine benazepril Type 2 diabetes mellitus 10/27/2013 Social History Tobacco Use Types Packs/Day Years Used Date Smoking Tobacco: Never [facility] Utilities Answer Date Recorded In the past 12 months has th e electric, gas, oil, or water company threatened to shut off services in your home? No 06/25/2024 Social Connection and Isolation Panel [NHANES] A nswer Date Recorded In a typical week, how many times do you talk on the phone with family, friends, or neighbors? Three times a week 06/25/2024 How often do you get togethe r with friends or relatives? Three times a week 06/25/2024 How often do you attend chur ch or pentecostalism services? Never 06/25/2024 Do you belong to any clubs o r organizations such as sikhism groups, unions, fraternal or athletic groups, or school groups? No 06/25/2024 How often do you attend meet ings of the clubs or organizations you belong to? Never 06/25/2024 Are you , , di vorced, , never , or living with a partner? 06/25/2024 AUDIT-C Answer Date Recorded Q1: How often do you have a drink containing alcohol? Never 06/24/2024 Q2: How many drinks containi ng alcohol do you have on a typical day when you are drinking? Patient does not drink Q3: How often do you have si x or more drinks on one occasion? Never 06/24/2024 Overall Financial Resource Strain (CARDIA) Answe r Date Recorded How hard is it for you to pa y for the very basics like food, housing, medical care, and heating? Not very hard 06/25/2024 Hunger Vital Sign Answer Date Recorded Within the past 12 months, y ou worried that your food would run out before you got the money to buy more. Never true 06/25/19 25 Within the past 12 months, t he food you bought just didn't last and you didn't have money to get more. Never true 06/25/2024 PRAPARE - Transportation Answer Date Re corded In the past 12 months, has l ack of transportation kept you from medical appointments or from getting medications? No 06/12 In the past 12 months, has l ack of transportation kept you from meetings, work, or from getting things needed for daily living? No 06/25/2024 Housing Stability Vital Sign Answer James e Recorded In the last 12 months, was t here a time when you were not able to pay the mortgage or rent on time? No 06/25/2024 In the past 12 months, how m any times have you moved where you were living? 0 06/25/2024 At any time in the past 12 m [facility], were you homeless or living in a fpc (including now)? No 06/25/2024 Personal Safety Answer Date Recorded Have you ever been in or are you currently in a harmful physical or emotional relationship or is someone making you feel afraid or unsafe? Denies 06/24/2024 Comments Unknown Sex and Gender Information Value Date Recorded Sex Assigned at Not on file Legal Sex Female 11:26 PM SENIOR WINDOWS ADMINISTRATOR Gender Identity Not on file Sexual Orientation Not on file Last Filed Vital Signs Vital Sign Reading Time Taken Comments Blood Pressure 140/60 07/28/2024 1:55 PM CDT Pulse 89 07/28/2024 1:55 PM CDT Temperature 36.6 C (97.9 F) 06/27/2024 3:17 PM SENIOR WINDOWS ADMINISTRATOR Respiratory Rate 18 07/28/2024 1:55 PM CDT Oxygen Saturation 98% 07/28/2024 1:55 PM CDT Inhaled Oxygen Concentration - - Weight 83.9 kg (185 lb) 07/28/2024 1:55 PM CDT Height 157.5 cm (5' 2 ) 07/28/2024 1:55 PM CDT Body Mass Index 33.84 07/28/2024 1:55 PM CDT Plan of Treatment Not on file Medical Devices Implanted Type Area Dedicated Local Truck Driver Device Identifier Shelf Expiration Date Model / Serial / Lot [employer] System Closure Repair Femoral Artery Suture Mediated Perclose Prostyle [id number] - [id number] Implanted:Qty: 1 on 06/24/2024 by Manuel Rollins MD at [facility] [employer] 03/11/2026 [id number] / / [id number] Procedures Procedure Name Priority Date/Time Associated Diagnosis Comments POCT GLUCOSE DEVICE Routine 06/27/2024 3 :45 PM SENIOR WINDOWS ADMINISTRATOR POCT GLUCOSE DEVICE Routine 06/27/2024 12:18 PM SENIOR WINDOWS ADMINISTRATOR POCT GLUCOSE DEVICE Routine 06/27/2024 7 :42 AM SENIOR WINDOWS ADMINISTRATOR EGFR Routine 06/27/2024 6:29 AM SENIOR WINDOWS ADMINISTRATOR DIFFERENTIAL AUTO Routine 06/27/2024 6:2 9 AM SENIOR WINDOWS ADMINISTRATOR CBC WITH AUTO DIFFERENTIAL Routine 06/27/2024 6:29 AM SENIOR WINDOWS ADMINISTRATOR BASIC METABOLIC PANEL Routine 06/27/2024 6:29 AM SENIOR WINDOWS ADMINISTRATOR POCT GLUCOSE DEVICE Routine 06/26/2024 10:07 PM SENIOR WINDOWS ADMINISTRATOR POCT GLUCOSE DEVICE Routine 06/26/2024 7 :25 PM SENIOR WINDOWS ADMINISTRATOR POCT GLUCOSE DEVICE Routine 06/26/2024 5 :02 PM SENIOR WINDOWS ADMINISTRATOR POCT GLUCOSE DEVICE Routine 06/26/2024 11:43 AM SENIOR WINDOWS ADMINISTRATOR POCT GLUCOSE DEVICE Routine 06/26/2024 7 :52 AM SENIOR WINDOWS ADMINISTRATOR EGFR Routine 06/26/2024 6:42 AM SENIOR WINDOWS ADMINISTRATOR DIFFERENTIAL AUTO Routine 06/26/2024 6:4 2 AM SENIOR WINDOWS ADMINISTRATOR CBC WITH AUTO DIFFERENTIAL Routine 06/26/2024 6:42 AM SENIOR WINDOWS ADMINISTRATOR BASIC METABOLIC PANEL Routine 06/26/2024 6:42 AM SENIOR WINDOWS ADMINISTRATOR POCT GLUCOSE DEVICE Routine 06/25/2024 10:57 PM SENIOR WINDOWS ADMINISTRATOR MRI BRAIN WO CONTRAST IP Routine 06/25/2024 10:19 PM SENIOR WINDOWS ADMINISTRATOR POCT GLUCOSE DEVICE Routine 06/25/2024 8 :06 PM SENIOR WINDOWS ADMINISTRATOR LIPID PANEL Routine 06/25/2024 4:59 PM SENIOR WINDOWS ADMINISTRATOR POCT GLUCOSE DEVICE Routine 06/25/2024 4 :25 PM SENIOR WINDOWS ADMINISTRATOR CT HEAD WO CONTRAST IP Routine 06/25/2024 4 :06 PM SENIOR WINDOWS ADMINISTRATOR POCT GLUCOSE DEVICE Routine 06/25/2024 12:02 PM SENIOR WINDOWS ADMINISTRATOR TRANSTHORACIC ECHO (TTE) COMPLETE W DOPPLER/CF W CONTRAST Routine 06/25/2024 10:03 AM SENIOR WINDOWS ADMINISTRATOR POCT GLUCOSE DEVICE Routine 06/25/2024 8 :27 AM SENIOR WINDOWS ADMINISTRATOR CRITICAL CARE Routine 06/25/2024 6:57 AM SENIOR WINDOWS ADMINISTRATOR Suspected cerebrovascular accident (CVA) Hypertensive encephalopathy Type 2 diabetes mellitus with other specified complication, without long-term current use of insulin (HCC) POCT GLUCOSE DEVICE Routine 06/25/2024 4 :09 AM SENIOR WINDOWS ADMINISTRATOR EGFR Routine 06/25/2024 2:22 AM SENIOR WINDOWS ADMINISTRATOR DIFFERENTIAL AUTO Routine 06/25/2024 2:2 2 AM SENIOR WINDOWS ADMINISTRATOR HEMOGLOBIN A1C Routine 06/25/2024 2:22 AM SENIOR WINDOWS ADMINISTRATOR MAGNESIUM Routine 06/25/2024 2:22 AM SENIOR WINDOWS ADMINISTRATOR CBC WITH AUTO DIFFERENTIAL Routine 06/25/2024 2:22 AM SENIOR WINDOWS ADMINISTRATOR BASIC METABOLIC PANEL Routine 06/25/2024 2:22 AM SENIOR WINDOWS ADMINISTRATOR POCT GLUCOSE DEVICE Routine 06/24/2024 11:38 PM SENIOR WINDOWS ADMINISTRATOR TROPONIN T HIGH-SENSITIVITY 6-HOUR Timed 06/24/2024 9:06 PM SENIOR WINDOWS ADMINISTRATOR URINALYSIS, MICROSCOPIC ONLY STAT 06/24/2024 8:41 PM SENIOR WINDOWS ADMINISTRATOR URINALYSIS AND REFLEX TO MICROSCOPIC AND CULTURE STAT 06/24/2024 8:41 PM SENIOR WINDOWS ADMINISTRATOR POCT GLUCOSE DEVICE Routine 06/24/2024 8 :26 PM SENIOR WINDOWS ADMINISTRATOR INFECTION PREVENTION MRSA ONLY (STAPHYLOCOCCUS AUREUS) PCR Routine 06/24/2024 7:58 PM SENIOR WINDOWS ADMINISTRATOR CRITICAL CARE Routine 06/24/2024 7:32 PM SENIOR WINDOWS ADMINISTRATOR TROPONIN T HIGH-SENSITIVITY 4-HR Timed 06/24/2024 6:28 PM SENIOR WINDOWS ADMINISTRATOR THYROID FUNCTION CASCADE Timed 06/24/2024 4:36 PM SENIOR WINDOWS ADMINISTRATOR MAGNESIUM Timed 06/24/2024 4:36 PM SENIOR WINDOWS ADMINISTRATOR TROPONIN T HIGH-SENSITIVITY 2-HOUR Timed 06/24/2024 4:36 PM SENIOR WINDOWS ADMINISTRATOR [place] CRITICAL CARE ILL/INJURED PATIENT INIT 30-74 MIN Routine 06/24/2024 4:11 PM SENIOR WINDOWS ADMINISTRATOR ECG 12-LEAD STAT 06/24/2024 2:37 PM SENIOR WINDOWS ADMINISTRATOR CTA STROKE HEAD NECK W CONTRAST Critical/Life- Threatening 06/24/2024 2:36 PM SENIOR WINDOWS ADMINISTRATOR POCT GLUCOSE DEVICE Routine 06/24/2024 2 :33 PM SENIOR WINDOWS ADMINISTRATOR CT STROKE PROTOCOL WO CONTRAST Critical/Life- Threatening 06/24/2024 2:25 PM SENIOR WINDOWS ADMINISTRATOR EGFR STAT 06/24/2024 2:22 PM SENIOR WINDOWS ADMINISTRATOR DIFFERENTIAL AUTO STAT 06/24/2024 2:2 2 PM SENIOR WINDOWS ADMINISTRATOR APTT STAT 06/24/2024 2:22 PM SENIOR WINDOWS ADMINISTRATOR PROTIME-INR STAT 06/24/2024 2:22 PM SENIOR WINDOWS ADMINISTRATOR TROPONIN T HIGH-SENSITIVITY SERIES (BASELINE, 2HR, 4HR, 6HR) STAT 06/24/2024 2:22 PM SENIOR WINDOWS ADMINISTRATOR COMPREHENSIVE METABOLIC PANEL STAT 06/24/2024 2:22 PM SENIOR WINDOWS ADMINISTRATOR CBC WITH AUTO DIFFERENTIAL STAT 06/24/2024 2:22 PM SENIOR WINDOWS ADMINISTRATOR POCT GLUCOSE DEVICE Routine 06/24/2024 1 :37 PM SENIOR WINDOWS ADMINISTRATOR POCT GLUCOSE DEVICE Routine 06/24/2024 11:15 AM SENIOR WINDOWS ADMINISTRATOR CARDIAC CATHETERIZATION Routine 06/24/2024 10:54 AM SENIOR WINDOWS ADMINISTRATOR Left carotid artery stenosis B ABO / RH CONFIRMATION TESTING STAT 06/24/2024 8:59 AM SENIOR WINDOWS ADMINISTRATOR POCT GLUCOSE DEVICE Routine 06/24/2024 8 :48 AM SENIOR WINDOWS ADMINISTRATOR EGFR STAT 06/24/2024 8:46 AM SENIOR WINDOWS ADMINISTRATOR Left carotid artery stenosis DIFFERENTIAL AUTO STAT 06/24/2024 8:4 6 AM SENIOR WINDOWS ADMINISTRATOR Left carotid artery stenosis ANTIBODY SCREEN STAT 06/24/2024 8:46 AM SENIOR WINDOWS ADMINISTRATOR Left carotid artery stenosis ABO/RH STAT 06/24/2024 8:46 AM SENIOR WINDOWS ADMINISTRATOR Left carotid artery stenosis TYPE AND SCREEN STAT 06/24/2024 8:46 AM SENIOR WINDOWS ADMINISTRATOR Left carotid artery stenosis PROTIME-INR STAT 06/24/2024 8:46 AM SENIOR WINDOWS ADMINISTRATOR Left carotid artery stenosis CBC WITH AUTO DIFFERENTIAL STAT 06/24/2024 8:46 AM SENIOR WINDOWS ADMINISTRATOR Left carotid artery stenosis BASIC METABOLIC PANEL STAT 06/24/2024 8:46 AM SENIOR WINDOWS ADMINISTRATOR Left carotid artery stenosis APTT STAT 06/24/2024 8:46 AM SENIOR WINDOWS ADMINISTRATOR Left carotid artery stenosis US CAROTIDS DUPLEX BILATERAL Schedule Routine, Read Routine (OP Routine) 06/14/2024 3:04 PM SENIOR WINDOWS ADMINISTRATOR Carotid stenosis, bilateral NEURO MR OUTSIDE REFERENCE Routine 06/07/2024 3:20 AM SENIOR WINDOWS ADMINISTRATOR NEURO CT OUTSIDE REFERENCE Routine 06/07/2024 12:00 AM SENIOR WINDOWS ADMINISTRATOR NEURO CT OUTSIDE REFERENCE Routine 06/06/2024 10:20 PM SENIOR WINDOWS ADMINISTRATOR from Last 3 Months Results * (ABNORMAL) POCT glucose (06/27/2024 3:45 PM SENIOR WINDOWS ADMINISTRATOR) Glucose, POC 209(H) 70 - 199 mg/dL Blood 06/27/2024 3:45 PM SENIOR WINDOWS ADMINISTRATOR 06/27/2024 3:45 PM SENIOR WINDOWS ADMINISTRATOR Britt Mg MD LAB POCT ORDERABLES - DEVICE Fin al Result Performing Organization Address [facility] Co de Phone Number [address] [place] [address] * (ABNORMAL) POCT glucose (06/27/2024 12:18 PM SENIOR WINDOWS ADMINISTRATOR) Glucose, POC 249(H) 70 - 199 mg/dL Glucose comment 1 Use This Result [facility] Blood 06/27/2024 12:1 8 PM SENIOR WINDOWS ADMINISTRATOR 06/27/2024 12:18 PM SENIOR WINDOWS ADMINISTRATOR Britt Mg MD LAB POCT ORDERABLES - DEVICE Fin al Result Performing Organization Address City/[facility] Co de Phone Number [id number] [place] [address] * (ABNORMAL) POCT glucose (06/27/2024 7:42 AM SENIOR WINDOWS ADMINISTRATOR) Glucose, POC 241(H) 70 - 199 mg/dL Glucose comment 1 Use This Result [facility] Blood 06/27/2024 7:42 AM SENIOR WINDOWS ADMINISTRATOR 06/27/2024 7:42 AM SENIOR WINDOWS ADMINISTRATOR Britt Mg MD LAB POCT ORDERABLES - DEVICE Fin al Result Performing Organization Address [facility] Co de Phone Number [address] [address] * (ABNORMAL) eGFR (06/27/2024 6:29 AM SENIOR WINDOWS ADMINISTRATOR) Pathologist [facility] eGFR 59(L) >=60 mL/min/1. 73 m2 Comment: Interpretive Data Reference Interval Normal >/= 90 mL/min/1.73m2 Mildly decreased* 60 - 89 mL/min/1.73m2 Mildly to moderately decreased 45 - 59 mL/min/1.73m2 Moderately to severely decreased 30 - 44 mL/min/1.73m2 Severely decreased 15 - 29 mL/min/1.73m2 Kidney Failure < 15 mL/min/1.73m2 *Relative to young adult level Estimated glomerular filtration rate is determined by the 2020 CKD-EPI equation recommended by the National Kidney Foundation (A Unifying Approach to GFR Estimation: Recommendations of the NKF-ASK Task Force on Reassessing the Inclusion of Race in Diagnosing Kidney Disease, JASN 2020). The CKD-EPI equation should not be used for patients with unstable renal function and has not been validated in children and those over 70. Current interpretive data was last reviewed 2021. Blood 06/27/2024 6:29 AM SENIOR WINDOWS ADMINISTRATOR 06/27/2024 6:49 AM SENIOR WINDOWS ADMINISTRATOR us Sugey De Leon NP LAB BLOOD ORDERABLES Final Result Performing Organization Address City/[facility]/ZIP Co de Phone Number [address] [address] * Differential, auto (06/27/2024 6:29 AM SENIOR WINDOWS ADMINISTRATOR) [facility] Neutrophil abs 3.4 1.5 - 6.5 K/cumm Imm gran abs 0.0 0.0 - 0.1 K/cumm [facility] Lymphocyte abs 2.2 0.8 - 3.3 K/cumm [facility] Monocyte abs 0.5 0.2 - 0.8 K/cumm [facility] Eosinophil abs 0.2 0.0 - 0.5 K/cumm [facility] Basophil abs 0.1 0.0 - 0.1 K/cumm [facility] Neutrophil pct 52.5 % [facility] Comment: Interpretive Data Percent cell count reference ranges are not reported, since discordance with absolute values may lead to misinterpretation of CBC data. Current Interpretive Data was last revised on 2017. Imm gran pct 0.3 % [facility] Comment: Interpretive Data Percent cell count reference ranges are not reported, since discordance with absolute values may lead to misinterpretation of CBC data. Current Interpretive Data was last revised on 2017. Lymphocyte pct 34.4 % [facility] Comment: Interpretive Data Percent cell count reference ranges are not reported, since discordance with absolute values may lead to misinterpretation of CBC data. Current Interpretive Data was last revised on 2017. Monocyte pct 8.4 % [facility] Comment: Interpretive Data Percent cell count reference ranges are not reported, since discordance with absolute values may lead to misinterpretation of CBC data. Current Interpretive Data was last revised on 2017. Eosinophil pct 3.6 % [facility] Comment: Interpretive Data Percent cell count reference ranges are not reported, since discordance with absolute values may lead to misinterpretation of CBC data. Current Interpretive Data was last revised on 2017. Basophil pct 0.8 % [facility] Comment: Interpretive Data Percent cell count reference ranges are not reported, since discordance with absolute values may lead to misinterpretation of CBC data. Current Interpretive Data was last revised on 2017. Blood 06/27/2024 6:29 AM SENIOR WINDOWS ADMINISTRATOR 06/27/2024 6:49 AM SENIOR WINDOWS ADMINISTRATOR us Sugey De Leon FLIGHT COMMUNICATIONS OPERATOR LAB BLOOD ORDERABLES Final Result [facility] [address] [facility] [place] [address] * (ABNORMAL) CBC with auto differential (06/27/2024 6:29 AM SENIOR WINDOWS ADMINISTRATOR) [facility] WBC 6.4 3.8 - 9.9 K/cumm Hgb 11.8(L) 11.9 - 15.5 g/dL [facility] Hct 35.9 35.6 - 45.5 % [facility] Plt 184 150 - 400 K/cumm [facility] MPV 9.3 9.1 - 12.3 fL [facility] RBC 4.15 3.90 - 5.20 M/cumm [facility] MCV 86.5 81.3 - 96.4 fL [facility] MCH 28.4 27.1 - 33.3 pg [facility] MCHC 32.9 32.3 - 35.7 g/dL [facility] RDW CV 12.8 11.1 - 14.9 % [facility] RDW SD 40.1 35.7 - 48.1 fL [facility] NRBC abs 0.00 0.00 - 0.01 K/cumm [facility] Blood 06/27/2024 6:29 AM SENIOR WINDOWS ADMINISTRATOR 06/27/2024 6:49 AM SENIOR WINDOWS ADMINISTRATOR us Sugey De Leon FLIGHT COMMUNICATIONS OPERATOR LAB BLOOD ORDERABLES Final Result [facility] [address] [facility] [place] [address] * (ABNORMAL) Basic metabolic panel (06/27/2024 6:29 AM SENIOR WINDOWS ADMINISTRATOR) [facility] Sodium 131(L) 135 - 145 mmol/L Potassium, pl 4.3 3.3 - 4.9 mmol/L [facility] Chloride 96(L) 97 - 110 mmol/L [facility] CO2 24 22 - 32 mmol/L [facility] Anion gap 11 2 - 15 mmol/L [facility] BUN 20 6 - 25 mg/dL [facility] Creatinine 0.99 0.60 - 1.10 mg/dL [facility] Glucose 193 70 - 199 mg/dL [facility] Comment: Delta - Results Reviewed Interpretive Data Fasting glucose >/= 126 mg/dl is diagnostic for diabetes. Fasting is defined as no caloric intake for at least 8 hours. Fasting glucose between 100 mg/dl to 125 mg/dl is diagnostic of prediabetes. In a patient with classic symptoms of hyperglycemia or hyperglycemic crisis, a random glucose >/= 200 mg/dl is diagnostic for diabetes. In the absence of unequivocal hyperglycemia, results should be confirmed by repeat testing. The classification and Diagnosis of Diabetes Diabetes Care 2021; 46: S19-S40. Current interpretive data was last revised 2022. Calcium 10.1 8.5 - 10.3 mg/dL [facility] Blood 06/27/2024 6:29 AM SENIOR WINDOWS ADMINISTRATOR 06/27/2024 6:49 AM SENIOR WINDOWS ADMINISTRATOR Sugey De Leon FLIGHT COMMUNICATIONS OPERATOR LAB BLOOD ORDERABLES Final Result Performing Organization Address [facility] de Phone Number [address] [employer] [place] [address] * (ABNORMAL) POCT glucose (06/26/2024 10:07 PM SENIOR WINDOWS ADMINISTRATOR) Glucose, POC 326(H) 70 - 199 mg/dL Glucose comment 1 Use This Result [facility] Glucose comment 2 RN/MD Notified [facility] Blood 06/26/2024 10:0 7 PM SENIOR WINDOWS ADMINISTRATOR 06/26/2024 10:07 PM SENIOR WINDOWS ADMINISTRATOR Result [facility] Britt Mg MD LAB POCT ORDERABLES - DEVICE Fin al Result Performing Organization Address [facility] de Phone Number [address] [employer] [place] [address] * (ABNORMAL) POCT glucose (06/26/2024 7:25 PM SENIOR WINDOWS ADMINISTRATOR) Glucose, POC 340(H) 70 - 199 mg/dL Glucose comment 1 Use This Result [facility] Glucose comment 2 RN/MD Notified [facility] Blood 06/26/2024 7:25 PM SENIOR WINDOWS ADMINISTRATOR 06/26/2024 7:25 PM SENIOR WINDOWS ADMINISTRATOR Result [facility] Britt Mg MD LAB POCT ORDERABLES - DEVICE Fin al Result Performing Organization Address [facility] de Phone Number [address] [address] * POCT glucose (06/26/2024 5:02 PM SENIOR WINDOWS ADMINISTRATOR) Glucose, POC 75 70 - 199 mg/dL Glucose comment 1 Use This Result [facility] Blood 06/26/2024 5:02 PM SENIOR WINDOWS ADMINISTRATOR 06/26/2024 5:02 PM SENIOR WINDOWS ADMINISTRATOR Britt Mg MD LAB POCT ORDERABLES - DEVICE Fin al Result Performing Organization Address [facility] de Phone Number [address] [address] * (ABNORMAL) POCT glucose (06/26/2024 11:43 AM SENIOR WINDOWS ADMINISTRATOR) Pathologist [facility] Glucose, POC 334(H) 70 - 199 mg/dL Glucose comment 1 Use This Result [facility] Blood 06/26/2024 11:4 3 AM SENIOR WINDOWS ADMINISTRATOR 06/26/2024 11:43 AM SENIOR WINDOWS ADMINISTRATOR Britt Mg MD LAB POCT ORDERABLES - DEVICE Fin al Result Performing Organization Address [facility] de Phone Number [address] [address] * (ABNORMAL) POCT glucose (06/26/2024 7:52 AM SENIOR WINDOWS ADMINISTRATOR) [facility] Glucose, POC 387(H) 70 - 199 mg/dL Glucose comment 1 Use This Result [facility] Blood 06/26/2024 7:52 AM SENIOR WINDOWS ADMINISTRATOR 06/26/2024 7:52 AM SENIOR WINDOWS ADMINISTRATOR us Britt Mg MD LAB POCT ORDERABLES - DEVICE Fin al Result Performing Organization Address [facility] Co de Phone Number [address] [address] * (ABNORMAL) eGFR (06/26/2024 6:42 AM SENIOR WINDOWS ADMINISTRATOR) Pathologist [facility] eGFR 49(L) >=60 mL/min/1. 73 m2 Comment: Interpretive Data Reference Interval Normal >/= 90 mL/min/1.73m2 Mildly decreased* 60 - 89 mL/min/1.73m2 Mildly to moderately decreased 45 - 59 mL/min/1.73m2 Moderately to severely decreased 30 - 44 mL/min/1.73m2 Severely decreased 15 - 29 mL/min/1.73m2 Kidney Failure < 15 mL/min/1.73m2 *Relative to young adult level Estimated glomerular filtration rate is determined by the 2020 CKD-EPI equation recommended by the National Kidney Foundation (A Unifying Approach to GFR Estimation: Recommendations of the NKF-ASK Task Force on Reassessing the Inclusion of Race in Diagnosing Kidney Disease, JASN 2020). The CKD-EPI equation should not be used for patients with unstable renal function and has not been validated in children and those over 70. Current interpretive data was last reviewed 2021. Blood 06/26/2024 6:42 AM SENIOR WINDOWS ADMINISTRATOR 06/26/2024 7:38 AM SENIOR WINDOWS ADMINISTRATOR us Inés Richter Jr., MD LAB BLOOD ORDERABLES Final Result [facility] [address] [facility] [place] [address] * Differential, auto (06/26/2024 6:42 AM SENIOR WINDOWS ADMINISTRATOR) Pathologist [facility] Neutrophil abs 3.2 1.5 - 6.5 K/cumm Imm gran abs 0.0 0.0 - 0.1 K/cumm [facility] Lymphocyte abs 1.7 0.8 - 3.3 K/cumm [facility] Monocyte abs 0.5 0.2 - 0.8 K/cumm [facility] Eosinophil abs 0.2 0.0 - 0.5 K/cumm [facility] Basophil abs 0.0 0.0 - 0.1 K/cumm [facility] Neutrophil pct 56.0 % [facility] Comment: Interpretive Data Percent cell count reference ranges are not reported, since discordance with absolute values may lead to misinterpretation of CBC data. Current Interpretive Data was last revised on 2017. Imm gran pct 0.4 % [facility] Comment: Interpretive Data Percent cell count reference ranges are not reported, since discordance with absolute values may lead to misinterpretation of CBC data. Current Interpretive Data was last revised on 2017. Lymphocyte pct 30.6 % [facility] Comment: Interpretive Data Percent cell count reference ranges are not reported, since discordance with absolute values may lead to misinterpretation of CBC data. Current Interpretive Data was last revised on 2017. Monocyte pct 9.6 % [facility] Comment: Interpretive Data Percent cell count reference ranges are not reported, since discordance with absolute values may lead to misinterpretation of CBC data. Current Interpretive Data was last revised on 2017. Eosinophil pct 2.7 % [facility] Comment: Interpretive Data Percent cell count reference ranges are not reported, since discordance with absolute values may lead to misinterpretation of CBC data. Current Interpretive Data was last revised on 2017. Basophil pct 0.7 % [facility] Comment: Interpretive Data Percent cell count reference ranges are not reported, since discordance with absolute values may lead to misinterpretation of CBC data. Current Interpretive Data was last revised on 2017. Blood 06/26/2024 6:42 AM SENIOR WINDOWS ADMINISTRATOR 06/26/2024 7:38 AM SENIOR WINDOWS ADMINISTRATOR us Inés Richter Jr., MD LAB BLOOD ORDERABLES Final Result [facility] [address] [facility] [place] [address] * (ABNORMAL) CBC with auto differential (06/26/2024 6:42 AM SENIOR WINDOWS ADMINISTRATOR) Pathologist [facility] WBC 5.6 3.8 - 9.9 K/cumm Hgb 10.6(L) 11.9 - 15.5 g/dL [facility] Hct 32.6(L) 35.6 - 45.5 % [facility] Plt 168 150 - 400 K/cumm [facility] MPV 9.6 9.1 - 12.3 fL [facility] RBC 3.71(L) 3.90 - 5.20 M/cumm [facility] MCV 87.9 81.3 - 96.4 fL [facility] MCH 28.6 27.1 - 33.3 pg [facility] MCHC 32.5 32.3 - 35.7 g/dL [facility] RDW CV 13.0 11.1 - 14.9 % [facility] RDW SD 41.4 35.7 - 48.1 fL [facility] NRBC abs 0.00 0.00 - 0.01 K/cumm [facility] Blood 06/26/2024 6:42 AM SENIOR WINDOWS ADMINISTRATOR 06/26/2024 7:38 AM SENIOR WINDOWS ADMINISTRATOR us Sugey De Leon NP LAB BLOOD ORDERABLES Final Result [facility] [address] [facility] [place] [address] * (ABNORMAL) Basic metabolic panel (06/26/2024 6:42 AM SENIOR WINDOWS ADMINISTRATOR) Sodium 128(L) 135 - 145 mmol/L Potassium, pl 4.3 3.3 - 4.9 mmol/L [facility] Chloride 94(L) 97 - 110 mmol/L [facility] CO2 25 22 - 32 mmol/L [facility] Anion gap 9 2 - 15 mmol/L [facility] BUN 28(H) 6 - 25 mg/dL [facility] Creatinine 1.17(H) 0.60 - 1.10 mg/dL [facility] Glucose 348(H) 70 - 199 mg/dL [facility] Comment: Delta - Results Reviewed Interpretive Data Fasting glucose >/= 126 mg/dl is diagnostic for diabetes. Fasting is defined as no caloric intake for at least 8 hours. Fasting glucose between 100 mg/dl to 125 mg/dl is diagnostic of prediabetes. In a patient with classic symptoms of hyperglycemia or hyperglycemic crisis, a random glucose >/= 200 mg/dl is diagnostic for diabetes. In the absence of unequivocal hyperglycemia, results should be confirmed by repeat testing. The classification and Diagnosis of Diabetes Diabetes Care 2021; 46: S19-S40. Current interpretive data was last revised 2022. Calcium 9.2 8.5 - 10.3 mg/dL [facility] Blood 06/26/2024 6:42 AM SENIOR WINDOWS ADMINISTRATOR 06/26/2024 7:38 AM SENIOR WINDOWS ADMINISTRATOR us Sugey De Leon NP LAB BLOOD ORDERABLES Final Result Performing Organization Address [facility] Co de Phone Number [facility] [address] [address] * (ABNORMAL) POCT glucose (06/25/2024 10:57 PM SENIOR WINDOWS ADMINISTRATOR) [facility] Glucose, POC 245(H) 70 - 199 mg/dL Glucose comment 1 Use This Result [facility] Glucose comment 2 RN/MD Notified [facility] Blood 06/25/2024 10:5 7 PM SENIOR WINDOWS ADMINISTRATOR 06/25/2024 10:57 PM SENIOR WINDOWS ADMINISTRATOR Britt Mg MD LAB POCT ORDERABLES - DEVICE Fin al Result Performing Organization Address [facility] Co de Phone Number [facility] [address] [place] [address] * MRI Brain WO Contrast (06/25/2024 10:19 PM SENIOR WINDOWS ADMINISTRATOR) Anatomical Region Laterality Modality Head and Neck N/A Magnetic Resonan ce 06/25/2024 10:5 5 PM SENIOR WINDOWS ADMINISTRATOR Narrative 06/25/2024 11:00 PM SENIOR WINDOWS ADMINISTRATOR EXAM DESCRIPTION: MRI BRAIN WO CONTRAST REASON FOR STUDY: Stroke, follow up Evaluate for CVA TECHNIQUE: Multiplanar imaging includes non-contrasted T1, T2, FLAIR, and diffusion with ADC map sequences. Additional sequence(s) sensitive to blood products. Images stored on PACS. COMPARISON: Same day FINDINGS: DIFFUSION: 1.4 cm focus of restricted diffusion in the left periventricular white matter with ADC correlate. CEREBRUM: No hemorrhage, edema, or mass effect. Normal white matter. EXTRAAXIAL: No hemorrhage or mass. BRAIN VOLUME: Within normal limits for age. PITUITARY: Normal. VASCULATURE: No flow disturbance identified. ORBITS: No mass. Globes normal. SKULL/BONE: Mastoid effusions. No calvarial lesion or fracture. IMPRESSION: 1.4 cm acute infarct in the left periventricular white matter. Findings called at the time of interpretation. THIS IS AN ELECTRONICALLY VERIFIED FINAL REPORT 06/25/2024 11:00 PM - Electronically signed by Devin CARLOS T: Report ID: [id number] Reading Location: [id number] Procedure Note Devin Delgado MD - 06/25/2024 EXAM DESCRIPTION: MRI BRAIN WO CONTRAST REASON FOR STUDY: Stroke, follow up Evaluate for CVA TECHNIQUE: Multiplanar imaging includes non-contrasted T1, T2, FLAIR, and diffusion with ADC map sequences. Additional sequence(s) sensitive Let[employer]ock. Images stored on PACS. COMPARISON: Same day FINDINGS: DIFFUSION: 1.4 cm focus of restricted diffusion in the leftperiventricular white matter with ADC correlate. CEREBRUM: No hemorrhage, edema, or mass effect. Normal white matter. EXTRAAXIAL: No hemorrhage or mass. BRAIN VOLUME: Within normal limits for age. PITUITARY: Normal. VASCULATURE: No flow disturbance identified. ORBITS: No mass. Globes normal. SKULL/BONE: Mastoid effusions. No calvarial lesion or fracture. IMPRESSION: 1.4 cm acute infarct in the left periventricular white matter. Findings called at the time of interpretation. THIS IS AN ELECTRONICALLY VERIFIED FINAL REPORT 06/25/2024 11:00 PM - Electronically signed by Devin CARLOS T: Report ID: [id number] Reading Location: [place] [address] us Sugey De Leon FLIGHT COMMUNICATIONS OPERATOR IMG MRI PROCEDURES Fi nal Result * (ABNORMAL) POCT glucose (06/25/2024 8:06 PM SENIOR WINDOWS ADMINISTRATOR) Glucose, POC 353(H) 70 - 199 mg/dL Glucose comment 1 Use This Result [facility] Glucose comment 2 RN/MD Notified [facility] Blood 06/25/2024 8:06 PM SENIOR WINDOWS ADMINISTRATOR 06/25/2024 8:06 PM SENIOR WINDOWS ADMINISTRATOR Britt Mg MD LAB POCT ORDERABLES - DEVICE Fin al Result [facility] [address] [facility] [place] [address] * Lipid panel (06/25/2024 4:59 PM SENIOR WINDOWS ADMINISTRATOR) Cholesterol 110 30 - 199 mg/dL Comment: Interpretive Data Ages < or = 19 years Acceptable: <170 mg/dL Borderline high: 170-199 mg/dL High: >or= 200 mg/dL Ages > or = 20 years Desirable: <200 mg/dL Borderline high: 200-239 mg/dL High: >or= 240 mg/dL Literature References: 1. Expert Panel on Integrated Guidelines for Cardiovascular Health and Risk Reduction in Children and Adolescents. Pediatrics 2011;128:S213 2. NCEP Expert Panel. Circulation 2004;110:227 Current Interpretive Data was last revised on 2017. Triglycerides 99 <=149 mg/dL [facility] Comment: Interpretive Data Ages < or = 9 years Acceptable: <75 mg/dL Borderline high: 75-99 mg/dL High: >or= 100 mg/dL Ages 10 to 20 years Acceptable: <90 mg/dL Borderline high: 90-129 mg/dL High: >or= 130 mg/dL Ages > or = 20 years Desirable: <150 mg/dL Borderline high: 150-199 mg/dL High: 200-499 mg/dL Very high: >or= 499 mg/dL Literature References: 1. Expert Panel on Integrated Guidelines for Cardiovascular Health and Risk Reduction in Children and Adolescents. Pediatrics 2011;128:S213 2. NCEP Expert Panel. Circulation 2004;110:227 Current Interpretive Data was last revised on 2017. HDL 60 >=40 mg/dL [facility] Comment: Interpretive Data Ages < or = 19 years Acceptable: >45 mg/dL Borderline low: 40-45 mg/dL Low: <40 mg/dL Ages > or = 20 years Desirable: >or= 60 mg/dL Low: <40 mg/dL Literature References: 1. Expert Panel on Integrated Guidelines for Cardiovascular Health and Risk Reduction in Children and Adolescents. Pediatrics 2011;128:S213 2. NCEP Expert Panel. Circulation 2004;110:227 Current Interpretive Data was last revised on 2017. LDL, calculated 32 <=129 mg/dL [facility] Comment: Interpretive Data Ages < or = 19 years Acceptable: <110 mg/dL Borderline high: 110-129 mg/dL High: >or= 130 mg/dL Ages > or = 20 years Optimal: <100 mg/dL Near optimal: 100-129 mg/dL Borderline high: 130-159 mg/dL High: >160 mg/dL Calculated using the Marlo LDL-C estimating equation. This equation was implemented on 2023. Prior to this date LDL-C was estimated using the Friedewald equation. Literature References: 1. Expert Panel on Integrated Guidelines for Cardiovascular Health and Risk Reduction in Children and Adolescents. Pediatrics 2011;128:S213 2. NCEP Expert Panel. Circulation 2004;110:227 3. Marlo Valle et al. MONICA Cardiol. 2020 September 09;5(5):540-548. doi: 10.1001/jamacardio.2020.0013 Current Interpretive Data was last revised on 2023. Non-HDL Cholesterol 50 mg/dL [facility] Comment: Interpretive Data Ages < or = 19 years Acceptable: <120 mg/dL Borderline high: 120-144 mg/dL High: >145 mg/dL Ages > or = 20 years When triglycerides are >200 mg/dL, Non-HDL cholesterol is a secondary target of therapy with treatment goals that are 30 mg/dL greater than the LDL cholesterol target. Literature References: 1. Expert Panel on Integrated Guidelines for Cardiovascular Health and Risk Reduction in Children and Adolescents. Pediatrics 2011;128:S213 2. NCEP Expert Panel. Circulation 2004;110:227 Current Interpretive Data was last revised on 2017. Chol/HDL ratio 2 [facility] Blood 06/25/2024 4:59 PM SENIOR WINDOWS ADMINISTRATOR 06/25/2024 5:32 PM SENIOR WINDOWS ADMINISTRATOR us Adrienne ESCOBEDO LAB BLOOD ORDERABLES Final Result [facility] [address] [facility] Department of Laboratories [place], [place] [address] * (ABNORMAL) POCT glucose (06/25/2024 4:25 PM SENIOR WINDOWS ADMINISTRATOR) [facility] Glucose, POC 221(H) 70 - 199 mg/dL Glucose comment 1 Use This Result [facility] Blood 06/25/2024 4:25 PM SENIOR WINDOWS ADMINISTRATOR 06/25/2024 4:25 PM SENIOR WINDOWS ADMINISTRATOR us Abigail Lin DO LAB POCT ORDERABLES - DE VICE Final Result [facility] [address] [facility] [place] [address] * CT Head WO Contrast (06/25/2024 4:06 PM SENIOR WINDOWS ADMINISTRATOR) Anatomical Region Laterality Modality Head and Neck N/A Computed Tomogra phy 06/25/2024 4:24 PM SENIOR WINDOWS ADMINISTRATOR Narrative 06/25/2024 4:28 PM SENIOR WINDOWS ADMINISTRATOR EXAM DESCRIPTION: CT HEAD WO CONTRAST REASON FOR STUDY: Stroke, follow up 24 hr stroke follow up TECHNIQUE: Axial images acquired through the brain without intravenous contrast. Images stored on PACS. Automated exposure control was used as a dose optimization technique for this examination. COMPARISON: CT head 06/24/2024 FINDINGS: BRAIN: No hemorrhage, edema or mass effect. No recent infarct. There are mild chronic microangiopathic changes in the deep cerebral white matter, similar to the comparison exam. There is mild generalized atrophy. No hydrocephalus. EXTRA-AXIAL SPACES: No fluid collections. No masses. CALVARIUM: No fracture. SINUSES/MASTOIDS: No fluid or mucosal thickening. ORBITS: No significant abnormality. OTHER: No other significant abnormality. IMPRESSION: No acute intracranial findings. If there is clinical concern for acute ischemia, recommend MRI for further evaluation. THIS IS AN ELECTRONICALLY VERIFIED FINAL REPORT 06/25/2024 4:28 PM - Electronically signed by Magno Soares M.D. AM T: Report ID: [id number] Reading Location: [id number] Procedure Note Magno Soares MD - 06/25/2024 EXAM DESCRIPTION: CT HEAD WO CONTRAST REASON FOR STUDY: Stroke, follow up 24 hr stroke follow up TECHNIQUE: Axial images acquired through the brain without intravenous contrast. Images stored on PACS. Automated exposure control was used asa dose optimization technique for this examination. COMPARISON: CT head 06/24/2024 FINDINGS: BRAIN: No hemorrhage, edema or mass effect. No recent infarct. There are mild chronic microangiopathic changes in the deep cerebral white matter, similar to the comparison exam. There is mild generalizedatrophy. No hydrocephalus. EXTRA-AXIAL SPACES: No fluid collections. No masses. CALVARIUM: No fracture. SINUSES/MASTOIDS: No fluid or mucosal thickening. ORBITS: No significant abnormality. OTHER: No other significant abnormality. IMPRESSION: No acute intracranial findings. If there is clinical concernfor acute ischemia, recommend MRI for further evaluation. THIS IS AN ELECTRONICALLY VERIFIED FINAL REPORT 06/25/2024 4:28 PM - Electronically signed by Magno Soares M.D. AM T: Report ID: [id number] Reading Location: [place] [address] us Sugey De Leon FLIGHT COMMUNICATIONS OPERATOR IMG CT PROCEDURES Fin al Result * POCT glucose (06/25/2024 12:02 PM SENIOR WINDOWS ADMINISTRATOR) Glucose, POC 173 70 - 199 mg/dL Glucose comment 1 Use This Result [facility] Blood 06/25/2024 12:0 2 PM SENIOR WINDOWS ADMINISTRATOR 06/25/2024 12:02 PM SENIOR WINDOWS ADMINISTRATOR us Abigail Lin DO LAB POCT ORDERABLES - DE VICE Final Result [facility] [address] [facility] [place] [address] * TRANSTHORACIC ECHO (TTE) COMPLETE W DOPPLER/CF W CONTRAST (06/25/2024 10:03 AM SENIOR WINDOWS ADMINISTRATOR) LV EF 55-60 % CONS SCIMAGE Anatomical Region Laterality Modality Ultrasound 06/25/2024 8:08 AM SENIOR WINDOWS ADMINISTRATOR Narrative 06/25/2024 5:10 PM SENIOR WINDOWS ADMINISTRATOR Transthoracic Echocardiographic Report Patient Name: CHRISTINE EAST C : 1950 (73y 6m) Gender: F Study Date: 06/25/2024 08:08:31 AM Ht(Inch): 62 Wt(Lb): 182 BSA: 1.9 Cut Off Tender Glass: SAMMI YiT Location: [place] [address] Order Provider: INÉS RICHTER Heart Rate: 79 BMI: 33.28 BP: 148/70 Ref Provider: INÉS RICHTER PROCEDURES: Echocardiographic Report: ([id number]) Transthoracic complete echo with contrast, 2D, spectral and tissue Doppler, color flow Doppler, M-mode. Additional Procedures: Agitated saline bubble study. Contrast: A contrast injection of Definity was performed to improve assessment of LV function. Definity Lot Number: [id number]. INDICATIONS: Cerebrovascular accident. FINDINGS: Left Ventricle: Normal left ventricular cavity size based on 2D measurements. Normal Left ventricular wall thickness. Normal left ventricular systolic function. The Ejection Fraction is visually estimated to be 55-60 %. Diastolic Function E to E' ration is 8-15 which is in the indeterminate zone and left ventricular diastolic parameters are consistent with Grade I diastolic dysfunction (normal LA pressure). Right Ventricle: Normal right ventricular size. Normal right ventricular systolic function. Left Atrium: The left atrium is normal in size. Right Atrium: The right atrium is normal in size. Atrial Septum: The interatrial septum is normal in appearance. Agitated saline bubble study is negative for intracardiac shunt. Mitral Valve: There is trace mitral valve regurgitation. No stenosis present. Mild mitral valve thickening. Aortic Valve: Aortic valve not well visualized due to poor echo windows. No aortic regurgitation seen. No aortic valve stenosis. Tricuspid Valve: Tricuspid valve is not well visualized due to poor echo windows. There is trace tricuspid regurgitation. PASP cannot be evaluated due to lack of adequate TR jet. No tricuspid valve stenosis. Pulmonic Valve: Pulmonic Valve not well visualized due to poor echo windows. There is trace pulmonic regurgitation. No stenosis present. Aorta: The aortic root is normal in size. IVC: IVC Not well visualized due to poor echo windows. The estimated RA pressure is 3 mmHg. CONCLUSIONS: 1. Normal left ventricular cavity size based on 2D measurements. Normal Left ventricular wall thickness. Normal left ventricular systolic function. The Ejection Fraction is visually estimated to be 55-60 %. 2. The interatrial septum is normal in appearance. Agitated saline bubble study is negative for intracardiac shunt. 3. Compared to echo 07/16/2013, no significant change. MEASUREMENTS: 2D/MM Value Range Doppler Value LVIDd 2D 3.16 cm [ 3.50 - 5.70 ] AV Peak Surya 1.14 m/s LVIDs 2D 2.29 cm [ 3.10 - 4.60 ] AV Peak PG 5.20 mmHg IVSd 2D 0.88 cm [ 0.60 - 1.20 ] LVOT Peak Surya 0.81 m/s LVPWd 2D 0.83 cm [ 0.60 - 1.10 ] LVOT Peak PG 2.62 mmHg LV Thickness Ratio 1.06 MV E Peak Surya 0.77 m/s LV Mass 2D 71.45 g MV A Peak Surya 0.89 m/s LV Mass Index 2D 37.61 g/m2 MV E/A 0.90 ratio RWT 0.53 MV Decel Time 132.00 msec Visually Estimated EF 55-60 % Med E` Surya 6.31 cm/sec LA Dimension 2D 2.50 cm [ 1.90 - 4.00 ] Lat E` Surya 8.05 cm/sec AoR Diam 2D 2.70 cm [ 2.00 - 3.70 ] Average E/E` 10.72 Ao Root Index 1.42 cm/m2 [ 1.00 - 2.00 ] TR Peak Surya 0.91 m/s TR Peak PG 3.3 mmHg RA Pressure 3.00 mmHg RVSP 6.30 mmHg - ATTESTATION: I have reviewed and interpreted the pertinent images and measurements of this study. I attest to the conclusions in the final report that is provided above. DISCLAIMER: The study images and the final report will be retained in the patient chart by the [facility] for the legally required time period. This chart constitutes the legal record of any testing performed. Electronically Signed By: Angel Hernandez MD 06/25/2024 5:10:17 PM SENIOR WINDOWS ADMINISTRATOR Procedure Note Angel Hernandez MD - 06/25/2024 Transthoracic Echocardiographic Report Patient Name: CHRISTINE EAST C : 1950 (73y 6m) Gender: F Study Date: 06/25/2024 08:08:31 AM Ht(Inch): 62 Wt(Lb): 182 BSA: 1.9 Cut Off Tender Glass: [facility] Location: [place] [address] Order Provider:INÉS RICHTER Heart Rate: 79 BMI: 33.28 BP: 148/70 Ref Provider: INÉS RICHTER PROCEDURES: Echocardiographic Report: ([id number]) Transthoracic complete echo withcontrast, 2D, spectral and tissue Doppler, color flow Doppler, M-mode. Additional Procedures: Agitated saline bubble study. Contrast: A contrast injection of Definity was performed to improveassessment of LV function. Definity Lot Number: [id number]. INDICATIONS: Cerebrovascular accident. FINDINGS: Left Ventricle: Normal left ventricular cavity size based on 2Dmeasurements. Normal Left ventricular wall thickness. Normal left ventricular systolic function. TheEjection Fraction is visually estimated to be 55-60 %. Diastolic Function E to E'ration is 8-15 which is in the indeterminate zone and left ventricular diastolicparameters are consistent with Grade I diastolic dysfunction (normal LA pressure). Right Ventricle: Normal right ventricular size. Normal right ventricularsystolic function. Left Atrium: The left atrium is normal in size. Right Atrium: The right atrium is normal in size. Atrial Septum: The interatrial septum is normal in appearance. Agitatedsaline bubble study is negative for intracardiac shunt. Mitral Valve: There is trace mitral valve regurgitation. No stenosispresent. Mild mitral valve thickening. Aortic Valve: Aortic valve not well visualized due to poor echo windows.No aortic regurgitation seen. No aortic valve stenosis. Tricuspid Valve: Tricuspid valve is not well visualized due to poor echowindows. There is trace tricuspid regurgitation. PASP cannot be evaluated due to lack ofadequate TR jet. No tricuspid valve stenosis. Pulmonic Valve: Pulmonic Valve not well visualized due to poor echowindows. There is trace pulmonic regurgitation. No stenosis present. Aorta: The aortic root is normal in size. IVC: IVC Not well visualized due to poor echo windows. The estimated RApressure is 3 mmHg. CONCLUSIONS: 1. Normal left ventricular cavity size based on 2D measurements. NormalLeft ventricular wall thickness. Normal left ventricular systolic function. The EjectionFraction is visually estimated to be 55-60 %. 2. The interatrial septum is normal in appearance. Agitated saline bubblestudy is negative for intracardiac shunt. 3. Compared to echo 07/16/2013, no significant change. MEASUREMENTS: 2D/MM Value Range DopplerValue LVIDd 2D 3.16 cm [ 3.50 - 5.70 ] AV Peak Vel1.14 m/s LVIDs 2D 2.29 cm [ 3.10 - 4.60 ] AV Peak PG5.20 mmHg IVSd 2D 0.88 cm [ 0.60 - 1.20 ] LVOT Peak Vel0.81 m/s LVPWd 2D 0.83 cm [ 0.60 - 1.10 ] LVOT Peak PG2.62 mmHg LV Thickness Ratio 1.06 MV E Peak Vel0.77 m/s LV Mass 2D 71.45 g MV A Peak Vel0.89 m/s LV Mass Index 2D 37.61 g/m2 MV E/A0.90 ratio RWT 0.53 MV Decel Xyam260.00 msec Visually Estimated EF 55-60 % Med E` Vel6.31 cm/sec LA Dimension 2D 2.50 cm [ 1.90 - 4.00 ] Lat E` Vel8.05 cm/sec AoR Diam 2D 2.70 cm [ 2.00 - 3.70 ] Average E/E`10.72 Ao Root Index 1.42 cm/m2 [ 1.00 - 2.00 ] TR Peak Vel0.91 m/s TR Peak PG 3.3 mmHg RA Pressure 3.00 mmHg RVSP 6.30 mmHg - ATTESTATION: I have reviewed and interpreted the pertinent images and measurements ofthis study. I attest to the conclusions in the final report that is provided above. DISCLAIMER: The study images and the final report will be retained in the patientchart by the [facility] for the legally required time period. This chart constitutesthe legal record of any testing performed. Electronically Signed By: Angel Hernandez MD 06/25/2024 5:10:17 PM SENIOR WINDOWS ADMINISTRATOR us Inés Richter Jr., MD CV ECHO PROCEDURES Final R esult * POCT glucose (06/25/2024 8:27 AM SENIOR WINDOWS ADMINISTRATOR) [facility] Signature Glucose, POC 107 70 - 199 mg/dL Glucose comment 1 Use This Result [facility] DUMONT Blood 06/25/2024 8:27 AM SENIOR WINDOWS ADMINISTRATOR 06/25/2024 8:27 AM SENIOR WINDOWS ADMINISTRATOR us Abigail Lin DO LAB POCT ORDERABLES - DE VICE Final Result [facility] [address] [facility] [place] [address] * Critical Care (06/25/2024 6:57 AM SENIOR WINDOWS ADMINISTRATOR) Narrative Abigail Lin DO - 06/25/2024 6:57 AM SENIOR WINDOWS ADMINISTRATOR Sugey De Leon NP 06/25/2024 9:40 AM Critical Care Performed by: Sugey De Leon NP Authorized by: Sugey De Leon NP CRITICAL CARE: Team: B Shift: AM Level of Billing: Subsequent Hospital Visit Level 3 My time spent with this patient was 65 minutes: Critical Provider Statement: I have seen and examined the patient on this day of service. I have reviewed and confirmed the history, physical exam, laboratory, and radiographic data as documented in the ICU note. I have reviewed and discussed my treatment plan with the patient's team and other medical/customer service sales consultant staff. This time was in addition to and separate from care provided by other practitioners on this day of service. I spent time reviewing and interpreting data from bedside monitors, laboratory results, and imaging, I spent time discussing the management of this critically ill patient with consultants and the medical staff and I spent time documenting in the medical record us Sugey De Leon FLIGHT COMMUNICATIONS OPERATOR IN CLINIC/BEDSIDE ORD ERABLES Final Result * POCT glucose (06/25/2024 4:09 AM SENIOR WINDOWS ADMINISTRATOR) Glucose, POC 114 70 - 199 mg/dL Glucose comment 1 Use This Result [facility]IM JULIA Blood 06/25/2024 4:09 AM SENIOR WINDOWS ADMINISTRATOR 06/25/2024 4:09 AM SENIOR WINDOWS ADMINISTRATOR us Abigail Lin DO LAB POCT ORDERABLES - DE VICE Final Result [facility] DUMONT [address] [facility] [place] [address] * (ABNORMAL) eGFR (06/25/2024 2:22 AM SENIOR WINDOWS ADMINISTRATOR) eGFR 52(L) >=60 mL/min/1. 73 m2 Comment: Interpretive Data Reference Interval Normal >/= 90 mL/min/1.73m2 Mildly decreased* 60 - 89 mL/min/1.73m2 Mildly to moderately decreased 45 - 59 mL/min/1.73m2 Moderately to severely decreased 30 - 44 mL/min/1.73m2 Severely decreased 15 - 29 mL/min/1.73m2 Kidney Failure < 15 mL/min/1.73m2 *Relative to young adult level Estimated glomerular filtration rate is determined by the 2020 CKD-EPI equation recommended by the National Kidney Foundation (A Unifying Approach to GFR Estimation: Recommendations of the NKF-ASK Task Force on Reassessing the Inclusion of Race in Diagnosing Kidney Disease, JASN 2020). The CKD-EPI equation should not be used for patients with unstable renal function and has not been validated in children and those over 70. Current interpretive data was last reviewed 2021. Blood 06/25/2024 2:22 AM SENIOR WINDOWS ADMINISTRATOR 06/25/2024 3:01 AM SENIOR WINDOWS ADMINISTRATOR Inés Richter Jr., MD LAB BLOOD ORDERABLES Final Result [facility] [address] [facility] [place] [address] * Differential, auto (06/25/2024 2:22 AM SENIOR WINDOWS ADMINISTRATOR) Neutrophil abs 6.2 1.5 - 6.5 K/cumm Imm gran abs 0.0 0.0 - 0.1 K/cumm [facility] Lymphocyte abs 1.3 0.8 - 3.3 K/cumm [facility] Monocyte abs 0.6 0.2 - 0.8 K/cumm [facility] Eosinophil abs 0.0 0.0 - 0.5 K/cumm [facility] Basophil abs 0.0 0.0 - 0.1 K/cumm [facility] Neutrophil pct 75.6 % [facility] Comment: Interpretive Data Percent cell count reference ranges are not reported, since discordance with absolute values may lead to misinterpretation of CBC data. Current Interpretive Data was last revised on 2017. Imm gran pct 0.4 % [facility] Comment: Interpretive Data Percent cell count reference ranges are not reported, since discordance with absolute values may lead to misinterpretation of CBC data. Current Interpretive Data was last revised on 2017. Lymphocyte pct 15.9 % [facility] Comment: Interpretive Data Percent cell count reference ranges are not reported, since discordance with absolute values may lead to misinterpretation of CBC data. Current Interpretive Data was last revised on 2017. Monocyte pct 7.8 % [facility] Comment: Interpretive Data Percent cell count reference ranges are not reported, since discordance with absolute values may lead to misinterpretation of CBC data. Current Interpretive Data was last revised on 2017. Eosinophil pct 0.1 % [facility] Comment: Interpretive Data Percent cell count reference ranges are not reported, since discordance with absolute values may lead to misinterpretation of CBC data. Current Interpretive Data was last revised on 2017. Basophil pct 0.2 % [facility] Comment: Interpretive Data Percent cell count reference ranges are not reported, since discordance with absolute values may lead to misinterpretation of CBC data. Current Interpretive Data was last revised on 2017. Blood 06/25/2024 2:22 AM SENIOR WINDOWS ADMINISTRATOR 06/25/2024 3:02 AM SENIOR WINDOWS ADMINISTRATOR us Inés Richter Jr., MD LAB BLOOD ORDERABLES Final Result [facility] [address] [facility] [place] [address] * (ABNORMAL) CBC with auto differential (06/25/2024 2:22 AM SENIOR WINDOWS ADMINISTRATOR) Pathologist [facility] WBC 8.2 3.8 - 9.9 K/cumm Hgb 11.4(L) 11.9 - 15.5 g/dL [facility] Hct 34.5(L) 35.6 - 45.5 % [facility] Plt 204 150 - 400 K/cumm [facility] MPV 9.5 9.1 - 12.3 fL [facility] RBC 4.05 3.90 - 5.20 M/cumm [facility] MCV 85.2 81.3 - 96.4 fL [facility] MCH 28.1 27.1 - 33.3 pg [facility] MCHC 33.0 32.3 - 35.7 g/dL [facility] RDW CV 12.9 11.1 - 14.9 % [facility] RDW SD 39.9 35.7 - 48.1 fL [facility] NRBC abs 0.00 0.00 - 0.01 K/cumm [facility] Blood 06/25/2024 2:22 AM SENIOR WINDOWS ADMINISTRATOR 06/25/2024 3:02 AM SENIOR WINDOWS ADMINISTRATOR us Sugey De Leon NP LAB BLOOD ORDERABLES Final Result Performing Organization Address [facility] de Phone Number [address] [address] * Magnesium (06/25/2024 2:22 AM SENIOR WINDOWS ADMINISTRATOR) [facility] Magnesium 1.8 1.4 - 2.5 mg/dL Blood 06/25/2024 2:22 AM SENIOR WINDOWS ADMINISTRATOR 06/25/2024 3:02 AM SENIOR WINDOWS ADMINISTRATOR Inés Richter Jr., MD LAB BLOOD ORDERABLES Final Result Performing Organization Address [facility] de Phone Number [address] [address] * (ABNORMAL) Hemoglobin A1c (06/25/2024 2:22 AM SENIOR WINDOWS ADMINISTRATOR) [facility] Hgb A1C 9.3(H) 4.0 - 5.6 % Estimated Average Glucose 220 mg/dL [facility] Comment: The ADA recommends reporting an estimated Average Glucose (eAG) with all Hemoglobin A1c results using the equation derived from a study of 507 normal and diabetic adults. Minority populations were underrepresented and children were not included. (Diabetes Care 31:1535-0974, 2008). The eAG is not equivalent to a fasting glucose. Blood 06/25/2024 2:22 AM SENIOR WINDOWS ADMINISTRATOR 06/25/2024 3:00 AM SENIOR WINDOWS ADMINISTRATOR Inés Richter Jr., MD LAB BLOOD ORDERABLES Final Result Performing Organization Address [facility] Co de Phone Number [address] [address] * (ABNORMAL) Basic metabolic panel (06/25/2024 2:22 AM SENIOR WINDOWS ADMINISTRATOR) [facility] Sodium 133(L) 135 - 145 mmol/L Potassium, pl 4.3 3.3 - 4.9 mmol/L [facility] Chloride 98 97 - 110 mmol/L [facility] CO2 25 22 - 32 mmol/L [facility] Anion gap 10 2 - 15 mmol/L [facility] BUN 26(H) 6 - 25 mg/dL [facility] Creatinine 1.10 0.60 - 1.10 mg/dL [facility] Glucose 117 70 - 199 mg/dL [facility] Comment: Interpretive Data Fasting glucose >/= 126 mg/dl is diagnostic for diabetes. Fasting is defined as no caloric intake for at least 8 hours. Fasting glucose between 100 mg/dl to 125 mg/dl is diagnostic of prediabetes. In a patient with classic symptoms of hyperglycemia or hyperglycemic crisis, a random glucose >/= 200 mg/dl is diagnostic for diabetes. In the absence of unequivocal hyperglycemia, results should be confirmed by repeat testing. The classification and Diagnosis of Diabetes Diabetes Care 2021; 46: S19-S40. Current interpretive data was last revised 2022. Calcium 9.9 8.5 - 10.3 mg/dL [facility] Blood 06/25/2024 2:22 AM SENIOR WINDOWS ADMINISTRATOR 06/25/2024 3:01 AM SENIOR WINDOWS ADMINISTRATOR us Sugey De Leon FLIGHT COMMUNICATIONS OPERATOR LAB BLOOD ORDERABLES Final Result [address] [employer] [place], [place] [id number] * POCT glucose (06/24/2024 11:38 PM SENIOR WINDOWS ADMINISTRATOR) Pathologist [facility] Glucose, POC 167 70 - 199 mg/dL Glucose comment 1 Use This Result [facility] Glucose comment 2 RN/MD Notified [facility] Blood 06/24/2024 11:3 8 PM SENIOR WINDOWS ADMINISTRATOR 06/24/2024 11:38 PM SENIOR WINDOWS ADMINISTRATOR us Abigail Lin DO LAB POCT ORDERABLES - DE VICE Final Result Performing Organization Address City/[facility]/ZIP Co de Phone Number [address] [place] [place] [address] * (ABNORMAL) Troponin T high-sensitivity 6-hour (06/24/2024 9:06 PM SENIOR WINDOWS ADMINISTRATOR) Pathologist [facility] Trop T hs 15(H) <=14 ng/L Comment: Interpretive Data For further hscTnT resources including the diagnostic algorithm and an aid in interpretation, copy and paste this link: https://nrl.testcatalog.org/show/hsTrop Current Interpretive Data last revised 2020. Trop T hs delta 4 ng/L [facility] Trop T hs interp Insignificant [facility] Blood 06/24/2024 9:06 PM SENIOR WINDOWS ADMINISTRATOR 06/24/2024 9:35 PM SENIOR WINDOWS ADMINISTRATOR Pau Ngo MD LAB BLOOD ORDERABLES F inal Result [facility] [address] [facility] [place] [address] * (ABNORMAL) Urinalysis reflex to microscopic and culture Urine (06/24/2024 8:41 PM SENIOR WINDOWS ADMINISTRATOR) Color, ur Yellow Yellow Clarity, ur Clear Clear [facility] Specific gravity, ur >1.050(A) 1.003 - 1.030 [facility] pH, urine 6.5 [facility] Comment: Interpretive Data U rine pH is affected by diet, medications, systemic acid-base disturbances, and renal tubular function. pH may affect urinary stone formation. For example, urine pH below 6.0 may help reduce the tendency for calcium phosphate stones and pH greater than 6.0 may reduce the tendency for uric acid stone formation. Source: [facility] Current Interpretive Data was last revised on 2017 Protein, ur ql 1+(A) Negative [facility] Glucose, ur ql 3+(A) Negative [facility] Ketones, ur 1+(A) Negative [facility] Bilirubin, ur Negative Negative [facility] Blood, ur Negative Negative [facility] Urobilinogen, ur <2.0 <2.0 mg/dL [facility] Nitrite, ur Negative Negative [facility] Leukocyte esterase, ur Negative Negative [facility] UA reflex comment Reflex to microscopic UA will be performed. [facility] Urine 06/24/2024 8:41 PM SENIOR WINDOWS ADMINISTRATOR 06/24/2024 8:49 PM SENIOR WINDOWS ADMINISTRATOR Pau Ngo MD LAB MICROBIOLOGY - GEN ERAL ORDERABLES Final Result Performing Organization Address [facility] Co de Phone Number [address] [address] * (ABNORMAL) Urinalysis, microscopic only (06/24/2024 8:41 PM SENIOR WINDOWS ADMINISTRATOR) [facility] WBC, ur 0-5 0 - 5 /HPF RBC, ur 3-5(A) 0 - 2 /HPF [facility] Epithelial cells, squamous, ur 1-5 0 - 5 /HPF [facility] Culture Reflex Comment Reflex conditions for urine culture (WBC >10) not met. [facility] Urine 06/24/2024 8:41 PM SENIOR WINDOWS ADMINISTRATOR 06/24/2024 8:49 PM SENIOR WINDOWS ADMINISTRATOR us Pau Ngo MD LAB URINE ORDERABLES F inal Result Performing Organization Address [facility] Co de Phone Number [address] [address] * (ABNORMAL) POCT glucose (06/24/2024 8:26 PM SENIOR WINDOWS ADMINISTRATOR) [facility] Glucose, POC 250(H) 70 - 199 mg/dL Glucose comment 1 Use This Result [facility] Blood 06/24/2024 8:26 PM SENIOR WINDOWS ADMINISTRATOR 06/24/2024 8:26 PM SENIOR WINDOWS ADMINISTRATOR us Abigail Lin DO LAB POCT ORDERABLES - DE VICE Final Result Performing Organization Address [facility] Co de Phone Number [address] [address] * Infection Prevention MRSA Only (Staphylococcus aureus) PCR Nasal (06/24/2024 7:58 PM SENIOR WINDOWS ADMINISTRATOR) [facility] PCR Scrn, Methicillin resistant Staphylococcus aureus (MRSA) Not Detected Not Detected Comment: Interpretive Data Testing performed using Nucleic Acid Amplification with the [employer] Xpert MRSA NxG Assay. This assay detects target DNA from mecA, mecC and the SCCmec insertion site of Staphylococcus aureus using Real-Time PCR and has been cleared by the FDA. Performance characteristics have been verified by the [facility]. Current Interpretive Data was last revised on 2023 Nasal 06/24/2024 7:58 PM SENIOR WINDOWS ADMINISTRATOR 06/24/2024 8:02 PM SENIOR WINDOWS ADMINISTRATOR Inés Richter Jr., MD LAB MICROBIOLOGY - GENERAL ORDERABLES Final Result [facility] [address] [facility] [place] [address] * Critical Care (06/24/2024 7:32 PM SENIOR WINDOWS ADMINISTRATOR) Narrative Inés Richter Jr., MD - 06/24/2024 7:32 PM SENIOR WINDOWS ADMINISTRATOR Inés Richter Jr., MD 06/24/2024 8:03 PM Critical Care Performed by: Inés Richter Jr., MD Authorized by: Inés Richter Jr., MD CRITICAL CARE: Team: [facility] Shift: PM Level of Billing: Initial Hospital Visit Level 2 My time spent with this patient was 66 minutes: Critical Provider Statement: I have seen and examined the patient on this day of service. I have reviewed and confirmed the history, physical exam, laboratory, and radiographic data as documented in the ICU note. I have reviewed and discussed my treatment plan with the patient's team and other medical/customer service sales consultant staff. This time was in addition to and separate from care provided by other practitioners on this day of service. Acute cerebrovascular accident (CVA) Hypertensive crisis and Hypotension Acute electrolyte derangement This time was spent by me doing the following: Serial laboratory checks Frequent neurologic exams Active and frequent reassessment of respiratory status and oxygen requirements Active and frequent monitoring of intake/output and volumen status and Glycemic control Active repletion of electrolytes Initiation of lytic therapy I spent time discussing the management of this critically ill patient with consultants and the medical staff, I spent time reviewing and interpreting data from bedside monitors, laboratory results, and imaging and I spent time documenting in the medical record us Inés Richter Jr., MD IN CLINIC/BEDSIDE ORDERABL ES Final Result * (ABNORMAL) Troponin T high-sensitivity 4-hour (06/24/2024 6:28 PM SENIOR WINDOWS ADMINISTRATOR) Pathologist [facility] Trop T hs 17(H) <=14 ng/L Comment: Interpretive Data For further hscTnT resources including the diagnostic algorithm and an aid in interpretation, copy and paste this link: https://nrl.testZiliko.org/show/hsTrop Current Interpretive Data last revised 2020. Trop T hs delta 6 ng/L [facility] Trop T hs interp Equivocal [facility] Blood 06/24/2024 6:28 PM SENIOR WINDOWS ADMINISTRATOR 06/24/2024 6:30 PM SENIOR WINDOWS ADMINISTRATOR Pau Ngo MD LAB BLOOD ORDERABLES F inal Result Performing Organization Address [facility] Co de Phone Number [address] [employer] [place] [address] * Troponin T high-sensitivity 2-hour (06/24/2024 4:36 PM SENIOR WINDOWS ADMINISTRATOR) [facility] Trop T hs 10 <=14 ng/L Comment: Interpretive Data For further hscTnT resources including the diagnostic algorithm and an aid in interpretation, copy and paste this link: https://nrl.[email or web address]/show/hsTrop Current Interpretive Data last revised 2020. Trop T hs delta -1 ng/L [facility] Trop T hs interp Insignificant [facility] Blood 06/24/2024 4:36 PM SENIOR WINDOWS ADMINISTRATOR 06/24/2024 4:53 PM SENIOR WINDOWS ADMINISTRATOR Pau Ngo MD LAB BLOOD ORDERABLES F inal Result Performing Organization Address [facility] Co de Phone Number [address] [employer] [place], [place] [id number] * Thyroid Function [place] (06/24/2024 4:36 PM SENIOR WINDOWS ADMINISTRATOR) [facility] TSH 0.51 0.30 - 4.20 mcIUnit/mL Blood 06/24/2024 4:36 PM SENIOR WINDOWS ADMINISTRATOR 06/24/2024 4:53 PM SENIOR WINDOWS ADMINISTRATOR Abigail Rosasell DO LAB BLOOD ORDERABLES Fin al Result Performing Organization Address [facility] Co de Phone Number [facility] [address] [address] * Magnesium (06/24/2024 4:36 PM SENIOR WINDOWS ADMINISTRATOR) Magnesium 1.4 1.4 - 2.5 mg/dL Blood 06/24/2024 4:36 PM SENIOR WINDOWS ADMINISTRATOR 06/24/2024 4:53 PM SENIOR WINDOWS ADMINISTRATOR [facility] LAB BLOOD ORDERABLES Fin al Result Performing Organization Address [facility] de Phone Number Q[facility] [place] [address] * [place] CRITICAL CARE ILL/INJURED PATIENT INIT 30-74 MIN (06/24/2024 4:11 PM SENIOR WINDOWS ADMINISTRATOR) Narrative Pau Ngo MD - 06/24/2024 4:11 PM SENIOR WINDOWS ADMINISTRATOR Pau Ngo MD 06/24/2024 4:13 PM Critical Care Performed by: Pau Ngo MD Authorized by: Pau Ngo MD Critical care provider statement: As reflected in the history, physical exam, orders, notes, and/or MDM, I was personally present while the patient was critically ill and provided critical care services for 45 minutes, excluding time involved in separately billable procedures. Critical care was necessary to treat or prevent imminent or life-threatening deterioration of the following condition(s): encephalopathy, acute delirium and severe neurologic condition hypertensive crisis Critical care was time spent by me providing the following: continuous telemetry, continuous pulse oximetry, interpretation of bedside monitors, imaging, and arterial/venous lab draws, serial bedside patient exams, serial laboratory checks and resuscitation with fluids frequent neurologic exams, decision regarding acute lytic therapy, initiation of stroke management and advanced imaging MRI I provided emergent necessary critical care medicine services to this patient. I ordered and reviewed test results and/or imaging studies. I spent time discussing the management of this critically ill patient with consultants and the medical staff. I spent time discussing the management and therapeutic options for this critically ill patient with the patient themselves or with the appropriate designated surrogate decision-maker. I spent time documenting in the medical record. I admitted this patient to an Intensive Care unit (ICU) and discussed management with the admitting team. Pau Ngo MD IN CLINIC/BEDSIDE OBED CORDERO Final Result * ECG 12 lead (06/24/2024 2:37 PM SENIOR WINDOWS ADMINISTRATOR) Ventricular Rate EKG/Min 93 BPM [facility] Atrial Rate 93 BPM [facility] [place]-Interval (MSEC) 150 ms [facility] QRS-Interval (MSEC) 78 ms [facility] QT-Interval (MSEC) 390 ms [facility] QTc 484 ms [facility] P [place] 54 degrees [facility] R [place] -20 degrees [facility] T [place] 83 degrees [facility] Diagnosis Normal sinus rhythm Low voltage QRS Cannot rule out Anterior infarct , age undetermined Abnormal ECG When compared with ECG of 15-JUL-2013 17:31, No significant change was found Confirmed by YOAV MONTANO M.D. ([id number]) on 06/25/2024 8:35:33 PM [facility] 06/24/2024 2:37 PM SENIOR WINDOWS ADMINISTRATOR 06/25/2024 8:35 PM SENIOR WINDOWS ADMINISTRATOR Pau Ngo MD ECG ORDERABLES Final Result [facility] * CTA Stroke Head Neck W Contrast (06/24/2024 2:36 PM SENIOR WINDOWS ADMINISTRATOR) Anatomical Region Laterality Modality Head and Neck N/A Computed Tomogra phy 06/24/2024 2:45 PM SENIOR WINDOWS ADMINISTRATOR Narrative 06/24/2024 3:03 PM SENIOR WINDOWS ADMINISTRATOR EXAM DESCRIPTION: CTA STROKE HEAD NECK W CONTRAST REASON FOR STUDY: LKW 1345. Pt came from medical lab assistant during a left carotid angio imaging study. Pt was then called for a code stroke with right sided facial droop. TECHNIQUE: Axial images were first obtained through the brain without contrast. Axial dynamic scanning technique with dynamic contrast enhancement through the intracranial and extracranial carotid and vertebral arteries. Multiplanar reconstruction. All stenosis measurements are based on NASCET criteria. 3D MIP images rendered on scanning unit and reviewed at time of interpretation. Automated exposure control was used as a dose optimization technique for this examination. CONTRAST TYPE/DOSE: 100mL of IOVERSOL 350 MG IODINE/ML INTRAVENOUS SYRINGE injected via intravenous COMPARISON: MRI dated 06/07/[address] angiogram dated 06/06/2024 FINDINGS: BRAIN CEREBRUM: No hemorrhage, edema or mass effect. No recent infarct. Brain parenchyma volume well-maintained. WHITE MATTER: Diffuse hypoattenuation within the white matter is likely sequela from microangiopathic disease, mild in severity. POSTERIOR FOSSA: No masses. No hemorrhage. No evidence for acute infarction. EXTRA-AXIAL SPACES: No fluid collections. No masses. ORBITS: No significant abnormality. CALVARIUM: No fracture. SINUSES/MASTOIDS: Mild fluid in the right mastoid air cells. OTHER: No other significant abnormality. INTRACRANIAL VESSELS [place]: The anterior, middle, posterior cerebral arteries are all patent. No evidence of aneurysm or focal stenosis. POSTERIOR CIRCULATION: The distal vertebral arteries are patent as is the basilar artery. No aneurysm. Noncalcified plaque is seen within the basilar artery similar to prior. BRAIN: No gross enhancing lesions as visualized. CAROTID CTA RIGHT CAROTIDS: There is a calcified plaque causing a mild stenosis of the right internal carotid artery just beyond the bifurcation with less than 50% stenosis. Calcified plaques within the cavernous/intracranial carotid artery causes approximately 50% stenosis, similar to prior. The previously seen low attenuation adjacent to this plaque is no longer identified. It may have been an artifact or resolved. LEFT CAROTIDS: There is a predominantly calcified plaque involving the left internal carotid artery near its origin. Less than 50% stenosis. Calcified plaque within the intracranial, cavernous carotid causes about 50% stenosis. LEFT VERTEBRAL: Patent. No significant stenosis. No dissection. RIGHT VERTEBRAL: Patent. No significant stenosis. No dissection. AORTIC ARCH: Normal three-vessel origin. Bilateral subclavian arteries are patent. No dissection. NECK SOFT TISSUE: No mass, adenopathy. No thyroid nodule greater than 1 cm. INCLUDED LUNGS: Pulmonary nodules are seen in the upper lobes. Correlate with any prior workup. Recommend PET-CT if not fully evaluated previously. OTHER: No other significant finding. IMPRESSION: BRAIN: No acute abnormalities. Recommend brain MRI to evaluate for acute ischemia INTRACRANIAL CTA: No large vessel occlusion. CAROTID CTA: No large vessel occlusion. Moderate stenosis of the right intracranial carotid artery with about 50% stenosis. Otherwise mild stenoses, less than 50% stenosis. Other: Pulmonary nodules in the upper lobes. Highly concerning for malignancy. Correlate with any prior workup. Recommend PET-CT if not fully evaluated previously. At 3:04 p.m. on 06/24/2024 The results were communicated to the ordering physician by the Radiology sales support associate. THIS IS AN ELECTRONICALLY VERIFIED FINAL REPORT 06/24/2024 3:03 PM - Electronically signed by Alexis PEREZ T: Report ID: [id number] Reading Location: [id number] Procedure Note Alexis Nielsen MD - 06/24/2024 EXAM DESCRIPTION: CTA STROKE HEAD NECK W CONTRAST REASON FOR STUDY: LKW 1345. Pt came from medical lab assistant during a left carotid angio imaging study.Pt was then called for a code stroke with right sided facial droop. TECHNIQUE: Axial images were first obtained through the brain without contrast. Axial dynamic scanning technique with dynamic contrast enhancement throughthe intracranial and extracranial carotid and vertebral arteries. Multiplanar reconstruction. All stenosis measurements are based on NASCET criteria. 3D MIP images rendered on scanning unit and reviewed at time of interpretation. Automated exposure control was used as a dose optimization technique forthis examination. CONTRAST TYPE/DOSE: 100mL of IOVERSOL 350 MG IODINE/ML INTRAVENOUSSYRINGE injected via intravenous COMPARISON: MRI dated 06/07/[address] angiogram dated 06/06/2024 FINDINGS: BRAIN CEREBRUM: No hemorrhage, edema or mass effect. No recent infarct. Brain parenchyma volume well-maintained. WHITE MATTER: Diffuse hypoattenuation within the white matter is likely sequela from microangiopathic disease, mild in severity. POSTERIOR FOSSA: No masses. No hemorrhage. No evidence for acuteinfarction. EXTRA-AXIAL SPACES: No fluid collections. No masses. ORBITS: No significant abnormality. CALVARIUM: No fracture. SINUSES/MASTOIDS: Mild fluid in the right mastoid air cells. OTHER: No other significant abnormality. INTRACRANIAL VESSELS [place]: The anterior, middle, posterior cerebral arteries areall patent. No evidence of aneurysm or focal stenosis. POSTERIOR CIRCULATION: The distal vertebral arteries are patent as isthe basilar artery. No aneurysm. Noncalcified plaque is seen within thebasilar artery similar to prior. BRAIN: No gross enhancing lesions as visualized. CAROTID CTA RIGHT CAROTIDS: There is a calcified plaque causing a mild stenosis ofthe right internal carotid artery just beyond the bifurcation with less than50% stenosis. Calcified plaques within the cavernous/intracranial carotidartery causes approximately 50% stenosis, similar to prior. The previously seenlow attenuation adjacent to this plaque is no longer identified. It may havebeen an artifact or resolved. LEFT CAROTIDS: There is a predominantly calcified plaque involving theleft internal carotid artery near its origin. Less than 50% stenosis.Calcified plaque within the intracranial, cavernous carotid causes about 50%stenosis. LEFT VERTEBRAL: Patent. No significant stenosis. No dissection. RIGHT VERTEBRAL: Patent. No significant stenosis. No dissection. AORTIC ARCH: Normal three-vessel origin. Bilateral subclavian arteriesare patent. No dissection. NECK SOFT TISSUE: No mass, adenopathy. No thyroid nodule greater than 1cm. INCLUDED LUNGS: Pulmonary nodules are seen in the upper lobes.Correlate with any prior workup. Recommend PET-CT if not fully evaluatedpreviously. OTHER: No other significant finding. IMPRESSION: BRAIN: No acute abnormalities. Recommend brain MRI to evaluate for acuteischemia INTRACRANIAL CTA: No large vessel occlusion. CAROTID CTA: No large vessel occlusion. Moderate stenosis of the right intracranial carotid artery with about 50% stenosis. Otherwise mild stenoses, less than 50% stenosis. Other: Pulmonary nodules in the upper lobes. Highly concerning for malignancy. Correlate with any prior workup. Recommend PET-CT if not fully evaluated previously. At 3:04 p.m. on 06/24/2024 The results were communicated to the ordering physician by the Radiology sales support associate. THIS IS AN ELECTRONICALLY VERIFIED FINAL REPORT 06/24/2024 3:03 PM - Electronically signed by Alexis Nielsen M.D. KN T: Report ID: [id number] Reading Location: [id number] Pau Ngo MD IMG CT PROCEDURES Betina l Result * POCT glucose (06/24/2024 2:33 PM SENIOR WINDOWS ADMINISTRATOR) [facility] Signature Glucose, POC 170 70 - 199 mg/dL Glucose comment 1 RN/MD Notified QASIM DUMONT Blood 06/24/2024 2:33 PM SENIOR WINDOWS ADMINISTRATOR 06/24/2024 2:33 PM SENIOR WINDOWS ADMINISTRATOR Pau Ngo MD LAB POCT ORDERABLES - DEVICE Final Result QASIM DUMONT [address] [facility] [place] [address] * CT Stroke Head WO Contrast (06/24/2024 2:25 PM SENIOR WINDOWS ADMINISTRATOR) Anatomical Region Laterality Modality Head N/A Computed Tomogra phy 06/24/2024 2:36 PM SENIOR WINDOWS ADMINISTRATOR Narrative 06/24/2024 2:42 PM SENIOR WINDOWS ADMINISTRATOR EXAM DESCRIPTION: CT STROKE HEAD WO CONTRAST REASON FOR STUDY: Right-sided facial droop. TECHNIQUE: Axial images acquired through the brain without intravenous contrast. Images stored on PACS. Automated exposure control was used as a dose optimization technique for this examination. COMPARISON: CT head 06/06/2024 FINDINGS: BRAIN: No hemorrhage, edema or mass effect. Moderate amount of periventricular white matter hypoattenuation is nonspecific but most consistent with chronic small vessel ischemic disease. Mild cerebral atrophy. The cheema-white matter differentiation is diffusely preserved. Basilar cisterns are patent. EXTRA-AXIAL SPACES: No fluid collections. No masses. CALVARIUM: No fracture. SINUSES/MASTOIDS: Mild opacification of the inferior right mastoid air cells is unchanged. ORBITS: Prior bilateral lens surgery. OTHER: Intracranial atherosclerosis. IMPRESSION: No acute intracranial abnormality by CT criteria. These findings were relayed to the referring physician by the operation support center staff at the time of dictation. THIS IS AN ELECTRONICALLY VERIFIED FINAL REPORT 06/24/2024 2:42 PM - Electronically signed by Gerber MATHIS T: Report ID: [id number] Reading Location: [place] [address] Procedure Note Gerber Kowalski MD - 06/24/2024 EXAM DESCRIPTION: CT STROKE HEAD WO CONTRAST REASON FOR STUDY: Right-sided facial droop. TECHNIQUE: Axial images acquired through the brain without intravenous contrast. Images stored on PACS. Automated exposure control was used asa dose optimization technique for this examination. COMPARISON: CT head 06/06/2024 FINDINGS: BRAIN: No hemorrhage, edema or mass effect. Moderate amountof periventricular white matter hypoattenuation is nonspecific but most consistent with chronic small vessel ischemic disease. Mild cerebralatrophy. The cheema-white matter differentiation is diffusely preserved. Basilar cisterns are patent. EXTRA-AXIAL SPACES: No fluid collections. No masses. CALVARIUM: No fracture. SINUSES/MASTOIDS: Mild opacification of the inferior right mastoid aircells is unchanged. ORBITS: Prior bilateral lens surgery. OTHER: Intracranial atherosclerosis. IMPRESSION: No acute intracranial abnormality by CT criteria. These findings were relayed to the referring physician by the operation support center staff at the time of dictation. THIS IS AN ELECTRONICALLY VERIFIED FINAL REPORT 06/24/2024 2:42 PM - Electronically signed by Gerber Kowalski M.D. T: Report ID: [id number] Reading Location: [place] [address] us Pau Ngo MD IMG CT PROCEDURES Betina l Result * Troponin T high-sensitivity series (baseline, 2hr, 4hr, 6hr) (06/24/2024 2:22 PM SENIOR WINDOWS ADMINISTRATOR) Trop T hs 11 <=14 ng/L Comment: Interpretive Data For further hscTnT resources including the diagnostic algorithm and an aid in interpretation, copy and paste this link: [email or web address].testcatalog.org/show/[email or web address] Current Interpretive Data last revised 2020. Blood 06/24/2024 2:22 PM SENIOR WINDOWS ADMINISTRATOR 06/24/2024 2:26 PM SENIOR WINDOWS ADMINISTRATOR us Pau Ngo MD LAB BLOOD ORDERABLES F inal Result [facility] [address] [facility] Department of [employer] [place] [address] * eGFR (06/24/2024 2:22 PM SENIOR WINDOWS ADMINISTRATOR) Pathologist [facility] eGFR 65 >=60 mL/min/1. 73 m2 Comment: Interpretive Data Reference Interval Normal >/= 90 mL/min/1.73m2 Mildly decreased* 60 - 89 mL/min/1.73m2 Mildly to moderately decreased 45 - 59 mL/min/1.73m2 Moderately to severely decreased 30 - 44 mL/min/1.73m2 Severely decreased 15 - 29 mL/min/1.73m2 Kidney Failure < 15 mL/min/1.73m2 *Relative to young adult level Estimated glomerular filtration rate is determined by the 2020 CKD-EPI equation recommended by the National Kidney Foundation (A Unifying Approach to GFR Estimation: Recommendations of the NKF-ASK Task Force on Reassessing the Inclusion of Race in Diagnosing Kidney Disease, JASN 2020). The CKD-EPI equation should not be used for patients with unstable renal function and has not been validated in children and those over 70. Current interpretive data was last reviewed 2021. Blood 06/24/2024 2:22 PM SENIOR WINDOWS ADMINISTRATOR 06/24/2024 2:26 PM SENIOR WINDOWS ADMINISTRATOR us Pau Ngo MD LAB BLOOD ORDERABLES F inal Result [facility] [address] [facility] [place] [address] * Differential, auto (06/24/2024 2:22 PM SENIOR WINDOWS ADMINISTRATOR) [facility] Neutrophil abs 4.8 1.5 - 6.5 K/cumm Imm gran abs 0.0 0.0 - 0.1 K/cumm [facility] Lymphocyte abs 2.0 0.8 - 3.3 K/cumm [facility] Monocyte abs 0.7 0.2 - 0.8 K/cumm [facility] Eosinophil abs 0.2 0.0 - 0.5 K/cumm [facility] Basophil abs 0.0 0.0 - 0.1 K/cumm [facility] Neutrophil pct 61.9 % [facility] Comment: Interpretive Data Percent cell count reference ranges are not reported, since discordance with absolute values may lead to misinterpretation of CBC data. Current Interpretive Data was last revised on 2017. Imm gran pct 0.4 % [facility] Comment: Interpretive Data Percent cell count reference ranges are not reported, since discordance with absolute values may lead to misinterpretation of CBC data. Current Interpretive Data was last revised on 2017. Lymphocyte pct 26.2 % [facility] Comment: Interpretive Data Percent cell count reference ranges are not reported, since discordance with absolute values may lead to misinterpretation of CBC data. Current Interpretive Data was last revised on 2017. Monocyte pct 8.5 % [facility] Comment: Interpretive Data Percent cell count reference ranges are not reported, since discordance with absolute values may lead to misinterpretation of CBC data. Current Interpretive Data was last revised on 2017. Eosinophil pct 2.6 % [facility] Comment: Interpretive Data Percent cell count reference ranges are not reported, since discordance with absolute values may lead to misinterpretation of CBC data. Current Interpretive Data was last revised on 2017. Basophil pct 0.4 % [facility] Comment: Interpretive Data Percent cell count reference ranges are not reported, since discordance with absolute values may lead to misinterpretation of CBC data. Current Interpretive Data was last revised on 2017. Blood 06/24/2024 2:22 PM SENIOR WINDOWS ADMINISTRATOR 06/24/2024 2:26 PM SENIOR WINDOWS ADMINISTRATOR us Pau Ngo MD LAB BLOOD ORDERABLES F inal Result [facility] [address] [facility] [place] [address] * CBC with auto differential (06/24/2024 2:22 PM SENIOR WINDOWS ADMINISTRATOR) WBC 7.8 3.8 - 9.9 K/cumm Hgb 12.0 11.9 - 15.5 g/dL [facility] Hct 36.2 35.6 - 45.5 % [facility] Plt 199 150 - 400 K/cumm [facility] MPV 9.4 9.1 - 12.3 fL [facility] RBC 4.21 3.90 - 5.20 M/cumm [facility] MCV 86.0 81.3 - 96.4 fL [facility] MCH 28.5 27.1 - 33.3 pg [facility] MCHC 33.1 32.3 - 35.7 g/dL [facility] RDW CV 12.7 11.1 - 14.9 % [facility] RDW SD 39.7 35.7 - 48.1 fL [facility] NRBC abs 0.00 0.00 - 0.01 K/cumm [facility] Blood Venous blood specimen / Unknown 06/24/2024 2:22 PM SENIOR WINDOWS ADMINISTRATOR 06/24/2024 2:26 PM SENIOR WINDOWS ADMINISTRATOR Narrative [facility] - 06/24/2024 2:30 PM SENIOR WINDOWS ADMINISTRATOR Potential Stroke Patient Pau Ngo MD LAB BLOOD ORDERABLES F inal Result Performing Organization Address [facility] de Phone Number [address] [employer] [place] [address] * aPTT (06/24/2024 2:22 PM SENIOR WINDOWS ADMINISTRATOR) aPTT 27 22 - 37 sec Comment: Interpretive data aPTT test has not been evaluated for monitoring heparin therapy. The anti-Xa is the preferred test. Current interpretive data was last revised on 2019. Blood Venous blood specimen / Unknown 06/24/2024 2:22 PM SENIOR WINDOWS ADMINISTRATOR 06/24/2024 2:26 PM SENIOR WINDOWS ADMINISTRATOR Narrative [facility] - 06/24/2024 2:40 PM SENIOR WINDOWS ADMINISTRATOR Potential stroke patient. Pau Ngo MD LAB BLOOD ORDERABLES F inal Result Performing Organization Address [facility] Co de Phone Number [address] [employer] [place] [address] * Protime-INR (06/24/2024 2:22 PM SENIOR WINDOWS ADMINISTRATOR) PT 13.1 12.0 - 14.6 sec INR 1.0 0.9 - 1.2 [facility] Comment: Ref Range High Interpretive data Oral anticoagulant therapeutic ranges: Venous thromboembolism prophylaxis or treatment: 2.0-3.0 CARDIOLOGY Standard range: 2.0-3.0 High-intensity range: 2.5-3.5 Refer to indication-specific guidelines for appropriate target ranges for prosthetic heart valve replacement. Current interpretive data was last revised on 2019. Blood 06/24/2024 2:22 PM SENIOR WINDOWS ADMINISTRATOR 06/24/2024 2:26 PM SENIOR WINDOWS ADMINISTRATOR Pau Ngo MD LAB BLOOD ORDERABLES F inal Result [facility] [address] [facility] [place] [address] * (ABNORMAL) Comprehensive metabolic panel (06/24/2024 2:22 PM SENIOR WINDOWS ADMINISTRATOR) Sodium 132(L) 135 - 145 mmol/L Potassium, pl 4.2 3.3 - 4.9 mmol/L [facility] Comment:Hemolyzed; Potassium value may be falsely elevated by as much as 1.0 mmol/L. Suggest redraw and reanalysis. Chloride 98 97 - 110 mmol/L [facility] CO2 23 22 - 32 mmol/L [facility] Anion gap 11 2 - 15 mmol/L [facility] BUN 20 6 - 25 mg/dL [facility] Creatinine 0.92 0.60 - 1.10 mg/dL [facility] Glucose 168 70 - 199 mg/dL [facility] Comment: Interpretive Data Fasting glucose >/= 126 mg/dl is diagnostic for diabetes. Fasting is defined as no caloric intake for at least 8 hours. Fasting glucose between 100 mg/dl to 125 mg/dl is diagnostic of prediabetes. In a patient with classic symptoms of hyperglycemia or hyperglycemic crisis, a random glucose >/= 200 mg/dl is diagnostic for diabetes. In the absence of unequivocal hyperglycemia, results should be confirmed by repeat testing. The classification and Diagnosis of Diabetes Diabetes Care 202; 46: S19-S40. Current interpretive data was last revised 2022. Calcium 9.8 8.5 - 10.3 mg/dL [facility] Bilirubin, total 0.4 0.1 - 1.2 mg/dL [facility] Protein, pl 6.4(L) 6.5 - 8.5 g/dL [facility] Albumin 4.1 3.5 - 5.0 g/dL [facility] Alk phos 65 40 - 130 Units/L [facility] ALT 15 7 - 45 Units/L [facility] AST See Comment [facility] Comment:Credited; Hemolyzed Specimen Blood Venous blood specimen / Unknown 06/24/2024 2:22 PM SENIOR WINDOWS ADMINISTRATOR 06/24/2024 2:26 PM SENIOR WINDOWS ADMINISTRATOR Narrative [facility] - 06/24/2024 2:59 PM SENIOR WINDOWS ADMINISTRATOR Potential Stroke Patient Pau Ngo MD LAB BLOOD ORDERABLES F inal Result Performing Organization Address City/[facility]/ZIP Co de Phone Number [address] [employer] [place] [address] * POCT glucose (06/24/2024 1:37 PM SENIOR WINDOWS ADMINISTRATOR) Glucose, POC 167 70 - 199 mg/dL Blood 06/24/2024 1:37 PM SENIOR WINDOWS ADMINISTRATOR 06/24/2024 1:37 PM SENIOR WINDOWS ADMINISTRATOR Manuel Rollins MD LAB POCT ORDERABLES - DEVICE Fin al Result Performing Organization Address [facility] Co de Phone Number [address] [employer] [place] [address] * POCT glucose (06/24/2024 11:15 AM SENIOR WINDOWS ADMINISTRATOR) Glucose, POC 151 70 - 199 mg/dL Glucose comment 1 Use This Result [facility] Blood 06/24/2024 11:1 5 AM SENIOR WINDOWS ADMINISTRATOR 06/24/2024 11:15 AM SENIOR WINDOWS ADMINISTRATOR Manuel Rollins MD LAB POCT ORDERABLES - DEVICE Fin al Result Performing Organization Address [facility] Co de Phone Number [address] [employer] [place] [address] * PERIPHERAL ANGIOGRAPHY (06/24/2024 10:54 AM SENIOR WINDOWS ADMINISTRATOR) Anatomical Region Laterality Modality X-Ray Angiograph y Narrative 06/24/2024 11:03 AM SENIOR WINDOWS ADMINISTRATOR Please see OpNote for result. us Manuel Rollins MD CV CARDIAC CATH PROCEDURES Final Result * ABO / Rh Confirmation Testing (06/24/2024 8:59 AM SENIOR WINDOWS ADMINISTRATOR) Pathologist [facility] ABO/Rh Confirmation A Positive [facility] Blood 06/24/2024 8:59 AM SENIOR WINDOWS ADMINISTRATOR 06/24/2024 9:02 AM SENIOR WINDOWS ADMINISTRATOR us Manuel Rollins MD LAB BLOOD ORDERABLES Final Resul t Performing Organization Address City/[facility]/ZIP Co de Phone Number QASIM [address] [place] [address] [facility] * POCT glucose (06/24/2024 8:48 AM SENIOR WINDOWS ADMINISTRATOR) [facility] Glucose, POC 155 70 - 199 mg/dL Glucose comment 1 Use This Result [facility] Blood 06/24/2024 8:48 AM SENIOR WINDOWS ADMINISTRATOR 06/24/2024 8:48 AM SENIOR WINDOWS ADMINISTRATOR Result [facility] us Manuel Rollins MD LAB POCT ORDERABLES - DEVICE Fin al Result Performing Organization Address City/[facility] Co de Phone Number [address] [employer] [place] [address] * (ABNORMAL) eGFR (06/24/2024 8:46 AM SENIOR WINDOWS ADMINISTRATOR) [facility] eGFR 54(L) >=60 mL/min/1. 73 m2 Comment: Interpretive Data Reference Interval Normal >/= 90 mL/min/1.73m2 Mildly decreased* 60 - 89 mL/min/1.73m2 Mildly to moderately decreased 45 - 59 mL/min/1.73m2 Moderately to severely decreased 30 - 44 mL/min/1.73m2 Severely decreased 15 - 29 mL/min/1.73m2 Kidney Failure < 15 mL/min/1.73m2 *Relative to young adult level Estimated glomerular filtration rate is determined by the 2020 CKD-EPI equation recommended by the National Kidney Foundation (A Unifying Approach to GFR Estimation: Recommendations of the NKF-ASK Task Force on Reassessing the Inclusion of Race in Diagnosing Kidney Disease, JASN 202). The CKD-EPI equation should not be used for patients with unstable renal function and has not been validated in children and those over 70. Current interpretive data was last reviewed 2021. Blood 06/24/2024 8:46 AM SENIOR WINDOWS ADMINISTRATOR 06/24/2024 8:50 AM SENIOR WINDOWS ADMINISTRATOR us Manuel Rollins MD LAB BLOOD ORDERABLES Final Resul t [facility] [address] [facility] [place] [address] * Differential, auto (06/24/2024 8:46 AM SENIOR WINDOWS ADMINISTRATOR) Neutrophil abs 4.4 1.5 - 6.5 K/cumm Imm gran abs 0.0 0.0 - 0.1 K/cumm [facility] Lymphocyte abs 2.4 0.8 - 3.3 K/cumm [facility] Monocyte abs 0.6 0.2 - 0.8 K/cumm [facility] Eosinophil abs 0.4 0.0 - 0.5 K/cumm [facility] Basophil abs 0.0 0.0 - 0.1 K/cumm [facility] Neutrophil pct 56.6 % [facility] Comment: Interpretive Data Percent cell count reference ranges are not reported, since discordance with absolute values may lead to misinterpretation of CBC data. Current Interpretive Data was last revised on 2017. Imm gran pct 0.5 % [facility] Comment: Interpretive Data Percent cell count reference ranges are not reported, since discordance with absolute values may lead to misinterpretation of CBC data. Current Interpretive Data was last revised on 2017. Lymphocyte pct 30.4 % [facility] Comment: Interpretive Data Percent cell count reference ranges are not reported, since discordance with absolute values may lead to misinterpretation of CBC data. Current Interpretive Data was last revised on 2017. Monocyte pct 7.5 % [facility] Comment: Interpretive Data Percent cell count reference ranges are not reported, since discordance with absolute values may lead to misinterpretation of CBC data. Current Interpretive Data was last revised on 2017. Eosinophil pct 4.5 % [facility] Comment: Interpretive Data Percent cell count reference ranges are not reported, since discordance with absolute values may lead to misinterpretation of CBC data. Current Interpretive Data was last revised on 2017. Basophil pct 0.5 % [facility] Comment: Interpretive Data Percent cell count reference ranges are not reported, since discordance with absolute values may lead to misinterpretation of CBC data. Current Interpretive Data was last revised on 2017. Blood 06/24/2024 8:46 AM SENIOR WINDOWS ADMINISTRATOR 06/24/2024 8:50 AM SENIOR WINDOWS ADMINISTRATOR us Manuel Rollins MD LAB BLOOD ORDERABLES Final Resul t [place] [id number] [facility] [place] [address] * CBC with auto differential (06/24/2024 8:46 AM SENIOR WINDOWS ADMINISTRATOR) WBC 7.9 3.8 - 9.9 K/cumm Hgb 13.0 11.9 - 15.5 g/dL [facility] Hct 40.1 35.6 - 45.5 % [facility] Plt 232 150 - 400 K/cumm [facility] MPV 9.3 9.1 - 12.3 fL [facility] RBC 4.62 3.90 - 5.20 M/cumm [facility] MCV 86.8 81.3 - 96.4 fL [facility] MCH 28.1 27.1 - 33.3 pg [facility] MCHC 32.4 32.3 - 35.7 g/dL [facility] RDW CV 12.7 11.1 - 14.9 % [facility] RDW SD 40.2 35.7 - 48.1 fL [facility] NRBC abs 0.00 0.00 - 0.01 K/cumm [facility] Blood 06/24/2024 8:46 AM SENIOR WINDOWS ADMINISTRATOR 06/24/2024 8:50 AM SENIOR WINDOWS ADMINISTRATOR Narrative [facility] - 06/24/2024 8:58 AM SENIOR WINDOWS ADMINISTRATOR If most recent labs were drawn prior to 4 AM, draw only prior to initiating procedure. Result [facility] Manuel Rollins MD LAB BLOOD ORDERABLES Final Resul t Performing Organization Address [facility] de Phone Number [address] [address] * ABO/Rh (06/24/2024 8:46 AM SENIOR WINDOWS ADMINISTRATOR) Pathologist [facility] ABO/Rh A Positive Blood 06/24/2024 8:46 AM SENIOR WINDOWS ADMINISTRATOR 06/24/2024 8:50 AM SENIOR WINDOWS ADMINISTRATOR Narrative [facility] - 06/24/2024 9:25 AM SENIOR WINDOWS ADMINISTRATOR Has the patient had Daratumumab or Isatuximab in the past 6 months?->Unknown Result [facility] Manuel Rollins MD LAB BLOOD BANK TEST ORDERABLES F inal Result Performing Organization Address [facility] de Phone Number [address] [address] * aPTT (06/24/2024 8:46 AM SENIOR WINDOWS ADMINISTRATOR) [facility] aPTT 25 22 - 37 sec Comment: Interpretive data aPTT test has not been evaluated for monitoring heparin therapy. The anti-Xa is the preferred test. Current interpretive data was last revised on 2019. Blood 06/24/2024 8:46 AM SENIOR WINDOWS ADMINISTRATOR 06/24/2024 8:49 AM SENIOR WINDOWS ADMINISTRATOR Result [facility] Manuel Rollins MD LAB BLOOD ORDERABLES Final Resul t Performing Organization Address [facility] de Phone Number [address] [employer] [place] [address] * Protime-INR (06/24/2024 8:46 AM SENIOR WINDOWS ADMINISTRATOR) Pathologist [facility] PT 12.1 12.0 - 14.6 sec INR 0.9 0.9 - 1.2 [facility] Comment: Ref Range High Interpretive data Oral anticoagulant therapeutic ranges: Venous thromboembolism prophylaxis or treatment: 2.0-3.0 CARDIOLOGY Standard range: 2.0-3.0 High-intensity range: 2.5-3.5 Refer to indication-specific guidelines for appropriate target ranges for prosthetic heart valve replacement. Current interpretive data was last revised on 2019. Blood 06/24/2024 8:46 AM SENIOR WINDOWS ADMINISTRATOR 06/24/2024 8:49 AM SENIOR WINDOWS ADMINISTRATOR Manuel Rollins MD LAB BLOOD ORDERABLES Final Resul t Performing Organization Address [facility] de Phone Number [address] [employer] [place] [address] * Antibody screen (06/24/2024 8:46 AM SENIOR WINDOWS ADMINISTRATOR) [facility] Teresa, indirect, Gel Interpretation Negative ABSC Blood 06/24/2024 8:46 AM SENIOR WINDOWS ADMINISTRATOR 06/24/2024 8:50 AM SENIOR WINDOWS ADMINISTRATOR Narrative [facility] - 06/24/2024 9:25 AM SENIOR WINDOWS ADMINISTRATOR Has the patient had Daratumumab or Isatuximab in the past 6 months?->Unknown Manuel Rollins MD LAB BLOOD BANK TEST ORDERABLES F inal Result Performing Organization Address [facility] de Phone Number [address] [address] * (ABNORMAL) Basic metabolic panel (06/24/2024 8:46 AM SENIOR WINDOWS ADMINISTRATOR) [facility] Sodium 131(L) 135 - 145 mmol/L Potassium, pl 3.9 3.3 - 4.9 mmol/L [facility] Chloride 94(L) 97 - 110 mmol/L [facility] CO2 24 22 - 32 mmol/L [facility] Anion gap 13 2 - 15 mmol/L [facility] BUN 23 6 - 25 mg/dL [facility] Creatinine 1.07 0.60 - 1.10 mg/dL [facility] Glucose 155 70 - 199 mg/dL [facility] Comment: Interpretive Data Fasting glucose >/= 126 mg/dl is diagnostic for diabetes. Fasting is defined as no caloric intake for at least 8 hours. Fasting glucose between 100 mg/dl to 125 mg/dl is diagnostic of prediabetes. In a patient with classic symptoms of hyperglycemia or hyperglycemic crisis, a random glucose >/= 200 mg/dl is diagnostic for diabetes. In the absence of unequivocal hyperglycemia, results should be confirmed by repeat testing. The classification and Diagnosis of Diabetes Diabetes Care 2021; 46: S19-S40. Current interpretive data was last revised 2022. Calcium 10.0 8.5 - 10.3 mg/dL [facility] Blood 06/24/2024 8:46 AM SENIOR WINDOWS ADMINISTRATOR 06/24/2024 8:50 AM SENIOR WINDOWS ADMINISTRATOR Manuel Rollins MD LAB BLOOD ORDERABLES Final Resul t [place] [address] [facility] [place] [address] * US Carotids Duplex Bilateral (06/14/2024 3:04 PM SENIOR WINDOWS ADMINISTRATOR) Anatomical Region Laterality Modality Vascular Bilateral Ultrasound 06/14/2024 Narrative 06/16/2024 8:53 AM SENIOR WINDOWS ADMINISTRATOR [employer] Job ID: [id number] [facility] Document ID: [id number] Dictated date/time: [id number] BILATERAL CAROTID DUPLEX REASON FOR EXAM Carotid stenosis. FINDINGS ON THE RIGHT The right CCA peak systolic velocity is 83 cm/sec. The right ICA velocity is 65, 88 and 87. ECA is 156. The right vertebral has antegrade flow. FINDINGS ON THE LEFT The left CCA peak systolic velocity is 81 cm/sec. The left ICA velocities are 83, 112 and 118. ECA is 128. The left vertebral has antegrade flow. INTERPRETATION No evidence of significant stenosis in bilateral internal carotid arteries. Job ID/Internal Job ID: [id number] us Manuel Rollins MD [facility] PROCEDURES Final Result * Neuro MR Outside Reference (06/07/2024 3:20 AM SENIOR WINDOWS ADMINISTRATOR) Narrative RAD_DEREK_KAMLESH_MHE - 06/11/2024 10:20 AM SENIOR WINDOWS ADMINISTRATOR This order has been auto-finalized and does not contain a result. us Provider Transcribed Order IMG MRI PROCEDURES Fi nal Result Performing Organization Address [facility] de Phone Number [email or web address] * Neuro CT Outside Reference (06/07/2024 12:00 AM SENIOR WINDOWS ADMINISTRATOR) Narrative MARLENE_KAMLESH_MHE - 06/11/2024 10:19 AM SENIOR WINDOWS ADMINISTRATOR This order has been auto-finalized and does not contain a result. us Provider Transcribed Order IMG CT PROCEDURES Fin al Result Performing Organization Address [facility] de Phone Number [email or web address] * Neuro CT Outside Reference (06/06/2024 10:20 PM SENIOR WINDOWS ADMINISTRATOR) Narrative SHIRA_JULIAE - 06/11/2024 10:45 AM SENIOR WINDOWS ADMINISTRATOR This order has been auto-finalized and does not contain a result. us Provider Transcribed Order IMG CT PROCEDURES Fin al Result Performing Organization Address [facility] de Phone Number [email or web address] from Last 3 Months Insurance [employer] MEDICARE HMO [id number] [place] [address] [facility] MEDICARE HMO Advance Directives For more information, please contact: [phone] * Full Code (Latest Code Status on File) Date Activated Date Inactivated Comments 06/24/2024 7:54 PM 06/27/2024 9:08 PM * Full Code Date Activated Date Inactivated Comments 06/24/2024 12:10 PM 06/24/2024 2:17 PM Care Teams Clinical Operations Specialist Relationship Specialty Start Date End Date Rai Rodriguez MD [address] [place] [address] [place] [id number] PCP - General Family Medicine 06/24/24
--- OUTSIDE RECORDS SUMMARY | 2024-08-05 11:39 | XMS_ITS | Clinical Summary ---
Author Organization [facility] Address [address] [place] [address] Care Team Providers Care Product Manufacturing Professional Name Role Phone Rai Rodriguez MD Primary Care Provider [phone] Medications AMLODIPINE BESY-BENAZEPRIL HCL 10-40 MG CapIndications: [...] 1 tablet by mouth daily. 01/13/2018 Active Encounters Date Type Department Care Team Description 07/15/2024 2:16 PM POULTRY HANGER - 07/15/2024 11:59 PM POULTRY HANGER Hospital Encounter [facility] Speech Therapy [address] [place] [address] Christine Yu, RESIDENT CARE SUPERVISOR Rai Rodriguez MD Dysarthria (/) Discharge Disposition: Home or Self Care (Routine Discharge) 07/15/2024 Travel from Last 3 Months Social History Tobacco Use Types Packs/Day Years Used Date Smoking Tobacco: Never Assessed Comments Unknown Sex and Gender Information Value Date Recorded Sex Assigned at Female 06/17/2024 1:57 PM POULTRY HANGER Legal Sex Female 6:55 PM CDT Gender [...] Colonoscopy (10 Years) 1950 Hepatitis C 1968 Annual Medicare Wellness Visit 2013 Dexa Scan (General) 2013 Zoster Vaccines (2 of 3) 08/09/2014 06/14/2014 Pneumococcal Vaccine: 65+ Years (2 of 2 - PCV) 11/04/2018 11/04/2017 DTaP, Tdap and Td Vaccines (2 - Td or Tdap) 09/17/2021 09/18/2011 RSV Immunization or 60+ Years (1 - 1-dose 75+ series) 12/12/2023 COVID-19 Vaccine ( - 2023- season) 2024 Influenza Adult (#1) 2024 03/04/2023, 04/04/2016, 02/03/2015, Additional history exists Meningococcal B Vaccine Aged [...] Priority Date/Time Associated Diagnosis Comments COLONOSCOPY Routine POULTRY HANGER from Last 3 Months or Most Recently Relevant to Health Maintenance Results * Colonoscopy ( POULTRY HANGER) Narrative [facility] TO EPIC CONVERSION - POULTRY HANGER Documented hx of procedure Procedure Note , Generic Conversion, - 03/15/2018 Documented hx of procedure us Generic Conversion Md GARRIDO GI PROCEDURE ORDERABLES Final Result [facility] TO EPIC CONVERSION from Last 3 Months or Most Recently Relevant to Health Maintenance [facility] [id number] [facility] [place] [id number] [employer] Advance Directives Documents on File Type Date Recorded Patient Supervisor/Port Director Expl anation Advance Directives and Living Will 01/22/2017 12:00 AM ADVANCED DIRECTIVES Advance Directives and Living Will 01/22/2017 12:00 AM ADVANCED DIRECTIVES Advance Directives and Living Will 10/28/2016 12:00 AM ADVANCED DIRECTIVES Advance Directives and Living Will 03/28/2015 12:00 AM ADVANCED DIRECTIVES Advance Directives and Living Will 02/24/2013 12:00 AM ADVANCED DIRECTIVES Care Teams Product Manufacturing Professional Relationship Specialty Start Date End Date Rai Rodriguez MD [address] [facility] [place] [address] PCP - General FAMILY PRACTICE 06/17/24
--- OUTSIDE RECORDS SUMMARY | 2024-08-05 11:40 | XMS_ITS | Clinical Summary ---
Author Organization [facility] Office Center Address [address] [place] [address] Care Team Providers Care Pony Ride Attendant Name Role Phone Rai Rodriguez MD Primary Care Provider [phone] Allergies Active Allergy Reactions Criticality Noted Date [...] mg total) by mouth daily Active omega 8-utz-zee-fish oil 1,000 (120-180) mg capsule Take 1 [...] by mouth daily 30 tablet 1 06/28/19 026 Active Additional Information Patient not taking.Reported [...] by mouth daily 90 tablet 1 07/29/19 025 Active clopidogreL (PLAVIX) 75 mg tablet Take 1 tablet (75 mg total) by mouth daily 025 Discontin ued(Reord er) Active Problems Problem Noted Date Diagnosed Date Suspected cerebrovascular accident (CVA) 025 Left carotid artery stenosis 06/15/2024 Assessment & Plan (07/15/2024 2:43 PM DESIGN TEACHER): Status post diagnostic left carotid angiogram to [...] needed. Assessment & Plan (06/21/2024 2:38 PM DESIGN TEACHER): Discrepancy between her carotid duplex which showed [...] 10/27/2013 Assessment & Plan (07/15/2024 2:51 PM DESIGN TEACHER): Stable continue Lipitor Assessment & Plan (06/21/2024 2:38 PM DESIGN TEACHER): Stable continue Lipitor Hypertension 10/27/2013 Assessment & Plan (07/15/2024 2:43 PM DESIGN TEACHER): Continue amlodipine and benazepril, I suspect during the day she has extreme fluctuations in her blood pressure I have recommended follow up with her PCP. Assessment & Plan (06/21/2024 2:38 PM DESIGN TEACHER): Stable continue amlodipine benazepril Type 2 diabetes mellitus 10/27/2013 Encounters Date Type Department Care Team Description 07/28/2024 2:00 PM CDT Office Visit [facility] Neurology [address] [place] [phone] Haydee Whitlock NP Suspected cerebrovascular accident (CVA) 07/14/2024 10:30 AM DESIGN TEACHER Office Visit [facility] Vascular at [address] [place] [address] Manuel Rollins MD Left carotid artery stenosis (Primary Dx); Mixed hyperlipidemia; Primary hypertension 07/14/2024 Telephone [facility] Neurology [address] [place] [phone] Adrienne Cintron PA 06/28/2024 Telephone [facility] Neurology [address] [place] [phone] ProviderColby MD NEW PATIENT REFERRAL (SCHEDULE NEW PATIENT ) 06/24/2024 2:20 PM DESIGN TEACHER - 06/27/2024 4:27 PM DESIGN TEACHER Hospital Encounter [address] [address] Pau Ngo MD Terrell, Leslie Marie, DO Lun, Yu, MD Suspected cerebrovascular accident (CVA) (Primary Dx); Left carotid artery stenosis; Hypertensive encephalopathy; Altered mental status, unspecified altered mental status type; Hypertensive emergency; Type 2 diabetes mellitus with other specified complication, without long-term current use of insulin (HCC) Discharge Disposition: Discharge to home or self care 06/24/2024 10:30 AM DESIGN TEACHER - 06/24/2024 11:30 AM DESIGN TEACHER Surgery [facility] Cardiac Relay Dispatcher [address] [place] [phone] Manuel Rollins MD LEFT CAROTID ARTERY ANGIOGRAM 06/24/2024 8:25 AM DESIGN TEACHER - 06/24/2024 2:08 PM DESIGN TEACHER Hospital Encounter [facility] Cardiac Relay Dispatcher [address] [place] [phone] Manuel Rollins MD Left carotid artery stenosis Discharge Disposition: Still a patient 06/15/2024 Documentation [facility] Medical [facility] Vascular and Vein Surgery [address] [place] [phone] Taryn Calero RN 06/14/2024 2:26 PM DESIGN TEACHER - 06/14/2024 11:59 PM DESIGN TEACHER Hospital Encounter [facility] Medical Office Building [address] [place] [address] [address] [place] [address] Carotid stenosis, bilateral Discharge Disposition: Discharge to home or self care 06/14/2024 1:45 PM DESIGN TEACHER Office Visit [facility] Medical [facility] Vascular and Vein Surgery [address] [place] [phone] Manuel Rollins MD Left carotid artery stenosis (Primary Dx); Stenosis of carotid artery, unspecified laterality; Mixed hyperlipidemia; Primary hypertension 06/14/2024 Orders Only [facility] Vascular and Vein Surgery [address] [place] [phone] Manuel Rollins MD Carotid stenosis, bilateral (Primary Dx) 06/07/2024 3:20 AM DESIGN TEACHER - 06/07/2024 11:59 PM DESIGN TEACHER Hospital Encounter [facility] [employer] [address] [place] [address] Discharge Disposition: Discharge to home or self care 06/07/2024 - 06/07/2024 11:59 PM DESIGN TEACHER Hospital Encounter [facility] [employer] [address] [place] [address] Discharge Disposition: Discharge to home or self care 06/06/2024 10:20 PM DESIGN TEACHER - 06/06/2024 11:59 PM DESIGN TEACHER Hospital Encounter [facility] [employer] [address] [facility] [address] Discharge Disposition: Discharge to home or self care from Last 3 Months Surgical History Surgery Date Site/Laterality Comments CHOLECYSTECTOMY Cholecystectomy - 2012 (Added by TW Conv) BACK SURGERY 05/12/2011 - 05/11/2012 CARDIAC CATHETERIZATION 06/24/2024 Left Procedure: LEFT CAROTID ARTERY ANGIOGRAM; Surgeon: Manuel Rollins MD; Location: [facility] CARDIAC NURSE ADVOCATE; Service: Vascular; Laterality: Left; Medical devices from this surgery are in the Medical Devices section. Medical History Medical History Date Comments Thyroid disease Diabetes mellitus (HCC) Hyperlipidemia TIA (transient ischemic attack) Stroke (HCC) Hypertension Carotid artery disease Family History Medical History Relation Name Comments Diabetes Brother Diabetes Mellit us - (Added by TW Conv) Cancer Father Cancer - (Added by TW Conv) Heart disease Father Heart Disease - (Added by TW Conv) Hypertension Father Hypertension - (Added by TW Conv) Stroke Father Stroke Syndrome - (Added by TW Conv) Cancer Mother Cancer - (Added by TW Conv) Heart disease Mother Heart Disease - (Added by TW Conv) Stroke Mother Stroke Syndrome - (Added by TW Conv) Cancer Sister Cancer - (Added by TW Conv) Relation Name Status Comments Brother Father Mother Sister Social History Tobacco Use Types Packs/Day Years Used Date Smoking Tobacco: Never [facility] doggylootities Answer Date Recorded In the past 12 months has [employer], gas, oil, or water [employer] threatened to shut off services in your [...] often do you attend chur ch or nondenominational services? Never 06/25/2024 Do you belong to any clubs o r organizations such as gnosticist groups, unions, fraternal or athletic groups, or [...] any time in the past 12 m [facility], were you homeless or living in a group home (including now)? No 06/25/2024 Personal Safety Answer Date Recorded Have you ever been in or are you currently in a harmful physical or emotional relationship or is someone making you feel afraid or unsafe? Denies 06/24/2024 Comments Unknown Sex and Gender Information Value Date Recorded Sex Assigned at Not on file Legal Sex Female 11:26 PM DESIGN TEACHER Gender Identity Not on file Sexual Orientation Not on file Obstetrics History Last Filed Vital Signs Vital Sign Reading Time Taken Comments Blood Pressure 140/60 07/28/2024 1:55 PM CDT Pulse 89 07/28/2024 1:55 PM CDT Temperature 36.6 C (97.9 F) 06/27/2024 3:17 PM DESIGN TEACHER Respiratory Rate 18 07/28/2024 1:55 PM CDT Oxygen Saturation 98% 07/28/2024 1:55 PM CDT Inhaled Oxygen Concentration - - Weight 83.9 kg (185 lb) 07/28/2024 1:55 PM CDT Height 157.5 cm (5' 2 ) 07/28/2024 1:55 PM CDT Body Mass Index 33.84 07/28/2024 1:55 PM CDT Plan of Treatment Health Maintenance Due Date Last Done Comments Albumin Creatinine Ratio, Urine 1948 Colon Cancer Screening-Colonoscopy 1948 Depression Screening 1948 Hepatitis C Screening 1948 Osteoporosis Screening-Bone Density Scan 1948 Dilated Eye Exam 1948 Foot Exam 1948 Hepatitis B Screening 1966 Pneumococcal vaccine 65+ (1 of 2 - PCV) 12/12/1967 Zoster Vaccine (1 of 2) 1998 Well Visit 65+ 2013 DTaP/Tdap/Td Vaccine (2 - Td or Tdap) 09/17/2021 09/18/2011 Influenza Vaccine (#1) 2024 , 04/04/2016, 02/02/2015 Hemoglobin A1C 12/23/2024 06/25/2024 Lipid Panel 06/25/2025 06/25/2024, 07/15/2013 Fall Risk Assessment 06/27/2025 06/27/2024 eGFR 06/27/2025 06/27/2024, 06/12, 06/25/2024, Additional history exists Medical Devices Implanted Type Area Cloth Brushing And Sueding Supervisor Device Identifier Shelf Expiration Date Model / Serial / Lot [employer] System Closure Repair Femoral Artery Suture Mediated Perclose Prostyle [id number] - [id number] Implanted:Qty: 1 on 06/24/2024 by Manuel Rollins MD at [facility] [employer] 03/11/2026 [id number] / / [id number] Procedures Procedure Name Priority Date/Time Associated Diagnosis Comments POCT GLUCOSE DEVICE Routine 06/27/2024 3 :45 PM DESIGN TEACHER POCT GLUCOSE DEVICE Routine 06/27/2024 12:18 PM DESIGN TEACHER POCT GLUCOSE DEVICE Routine 06/27/2024 7 :42 AM DESIGN TEACHER EGFR Routine 06/27/2024 6:29 AM DESIGN TEACHER DIFFERENTIAL AUTO Routine 06/27/2024 6:2 9 AM DESIGN TEACHER CBC WITH AUTO DIFFERENTIAL Routine 06/27/2024 6:29 AM DESIGN TEACHER BASIC METABOLIC PANEL Routine 06/27/2024 6:29 AM DESIGN TEACHER POCT GLUCOSE DEVICE Routine 06/26/2024 10:07 PM DESIGN TEACHER POCT GLUCOSE DEVICE Routine 06/26/2024 7 :25 PM DESIGN TEACHER POCT GLUCOSE DEVICE Routine 06/26/2024 5 :02 PM DESIGN TEACHER POCT GLUCOSE DEVICE Routine 06/26/2024 11:43 AM DESIGN TEACHER POCT GLUCOSE DEVICE Routine 06/26/2024 7 :52 AM DESIGN TEACHER EGFR Routine 06/26/2024 6:42 AM DESIGN TEACHER DIFFERENTIAL AUTO Routine 06/26/2024 6:4 2 AM DESIGN TEACHER CBC WITH AUTO DIFFERENTIAL Routine 06/26/2024 6:42 AM DESIGN TEACHER BASIC METABOLIC PANEL Routine 06/26/2024 6:42 AM DESIGN TEACHER POCT GLUCOSE DEVICE Routine 06/25/2024 10:57 PM DESIGN TEACHER MRI BRAIN WO CONTRAST IP Routine 06/25/2024 10:19 PM DESIGN TEACHER POCT GLUCOSE DEVICE Routine 06/25/2024 8 :06 PM DESIGN TEACHER LIPID PANEL Routine 06/25/2024 4:59 PM DESIGN TEACHER POCT GLUCOSE DEVICE Routine 06/25/2024 4 :[address] HEAD WO CONTRAST IP Routine 06/25/2024 4 :06 PM DESIGN TEACHER POCT GLUCOSE DEVICE Routine 06/25/2024 12:02 PM DESIGN TEACHER TRANSTHORACIC ECHO (TTE) COMPLETE W DOPPLER/CF W CONTRAST Routine 06/25/2024 10:03 AM DESIGN TEACHER POCT GLUCOSE DEVICE Routine 06/25/2024 8 :27 AM DESIGN TEACHER CRITICAL CARE Routine 06/25/2024 6:57 AM DESIGN TEACHER Suspected cerebrovascular accident (CVA) Hypertensive encephalopathy Type 2 diabetes mellitus with other specified complication, without long-term current use of insulin (HCC) POCT GLUCOSE DEVICE Routine 06/25/2024 4 :09 AM DESIGN TEACHER EGFR Routine 06/25/2024 2:22 AM DESIGN TEACHER DIFFERENTIAL AUTO Routine 06/25/2024 2:2 2 AM DESIGN TEACHER HEMOGLOBIN A1C Routine 06/25/2024 2:22 AM DESIGN TEACHER MAGNESIUM Routine 06/25/2024 2:22 AM DESIGN TEACHER CBC WITH AUTO DIFFERENTIAL Routine 06/25/2024 2:22 AM DESIGN TEACHER BASIC METABOLIC PANEL Routine 06/25/2024 2:22 AM DESIGN TEACHER POCT GLUCOSE DEVICE Routine 06/24/2024 11:38 PM DESIGN TEACHER TROPONIN T HIGH-SENSITIVITY 6-HOUR Timed 06/24/2024 9:06 PM DESIGN TEACHER URINALYSIS, MICROSCOPIC ONLY STAT 06/24/2024 8:41 PM DESIGN TEACHER URINALYSIS AND REFLEX TO MICROSCOPIC AND CULTURE STAT 06/24/2024 8:41 PM DESIGN TEACHER POCT GLUCOSE DEVICE Routine 06/24/2024 8 :26 PM DESIGN TEACHER INFECTION PREVENTION MRSA ONLY (STAPHYLOCOCCUS AUREUS) PCR Routine 06/24/2024 7:58 PM DESIGN TEACHER CRITICAL CARE Routine 06/24/2024 7:32 PM DESIGN TEACHER TROPONIN T HIGH-SENSITIVITY 4-HR Timed 06/24/2024 6:28 PM DESIGN TEACHER THYROID FUNCTION CASCADE Timed 06/24/2024 4:36 PM DESIGN TEACHER MAGNESIUM Timed 06/24/2024 4:36 PM DESIGN TEACHER TROPONIN T HIGH-SENSITIVITY 2-HOUR Timed 06/24/2024 4:36 PM DESIGN TEACHER IA CRITICAL CARE ILL/INJURED PATIENT INIT 30-74 MIN Routine 06/24/2024 4:11 PM DESIGN TEACHER ECG 12-LEAD STAT 06/24/2024 2:37 PM DESIGN TEACHER CTA STROKE HEAD NECK W CONTRAST Critical/Life- Threatening 06/24/2024 2:36 PM DESIGN TEACHER POCT GLUCOSE DEVICE Routine 06/24/2024 2 :[address] STROKE PROTOCOL WO CONTRAST Critical/Life- Threatening 06/24/2024 2:25 PM DESIGN TEACHER EGFR STAT 06/24/2024 2:22 PM DESIGN TEACHER DIFFERENTIAL AUTO STAT 06/24/2024 2:2 2 PM DESIGN TEACHER APTT STAT 06/24/2024 2:22 PM DESIGN TEACHER PROTIME-INR STAT 06/24/2024 2:22 PM DESIGN TEACHER TROPONIN T HIGH-SENSITIVITY SERIES (BASELINE, 2HR, 4HR, 6HR) STAT 06/24/2024 2:22 PM DESIGN TEACHER COMPREHENSIVE METABOLIC PANEL STAT 06/24/2024 2:22 PM DESIGN TEACHER CBC WITH AUTO DIFFERENTIAL STAT 06/24/2024 2:22 PM DESIGN TEACHER POCT GLUCOSE DEVICE Routine 06/24/2024 1 :37 PM DESIGN TEACHER POCT GLUCOSE DEVICE Routine 06/24/2024 11:15 AM DESIGN TEACHER CARDIAC CATHETERIZATION Routine 06/24/2024 10:54 AM DESIGN TEACHER Left carotid artery stenosis B ABO / RH CONFIRMATION TESTING STAT 06/24/2024 8:59 AM DESIGN TEACHER POCT GLUCOSE DEVICE Routine 06/24/2024 8 :48 AM DESIGN TEACHER EGFR STAT 06/24/2024 8:46 AM DESIGN TEACHER Left carotid artery stenosis DIFFERENTIAL AUTO STAT 06/24/2024 8:4 6 AM DESIGN TEACHER Left carotid artery stenosis ANTIBODY SCREEN STAT 06/24/2024 8:46 AM DESIGN TEACHER Left carotid artery stenosis ABO/RH STAT 06/24/2024 8:46 AM DESIGN TEACHER Left carotid artery stenosis TYPE AND SCREEN STAT 06/24/2024 8:46 AM DESIGN TEACHER Left carotid artery stenosis PROTIME-INR STAT 06/24/2024 8:46 AM DESIGN TEACHER Left carotid artery stenosis CBC WITH AUTO DIFFERENTIAL STAT 06/24/2024 8:46 AM DESIGN TEACHER Left carotid artery stenosis BASIC METABOLIC PANEL STAT 06/24/2024 8:46 AM DESIGN TEACHER Left carotid artery stenosis APTT STAT 06/24/2024 8:46 AM DESIGN TEACHER Left carotid artery stenosis US CAROTIDS DUPLEX BILATERAL Schedule Routine, Read Routine (OP Routine) 06/14/2024 3:04 PM DESIGN TEACHER Carotid stenosis, bilateral NEURO MR OUTSIDE REFERENCE Routine 06/07/2024 3:20 AM DESIGN TEACHER NEURO CT OUTSIDE REFERENCE Routine 06/07/2024 12:00 AM DESIGN TEACHER NEURO CT OUTSIDE REFERENCE Routine 06/06/2024 10:20 PM DESIGN TEACHER from Last 3 Months Results * (ABNORMAL) POCT glucose (06/27/2024 3:45 PM DESIGN TEACHER) Glucose, POC 209(H) 70 - 199 mg/dL Blood 06/27/2024 3:45 PM DESIGN TEACHER 06/27/2024 3:45 PM DESIGN TEACHER Britt Mg MD LAB POCT ORDERABLES - DEVICE Fin al Result Performing Organization Address [facility]/ZIP Co de Phone Number QASIM [address] [employer], [place] [phone] * (ABNORMAL) POCT glucose (06/27/2024 12:18 PM DESIGN TEACHER) Glucose, POC 249(H) 70 - 199 mg/dL Glucose comment 1 Use This Result QASIM Blood 06/27/2024 12:1 8 PM DESIGN TEACHER 06/27/2024 12:18 PM DESIGN TEACHER Britt Mg MD LAB POCT ORDERABLES - DEVICE Fin al Result Performing Organization Address City/[facility]/ZIP Co de Phone Number [id number] [employer], [place] [phone] * (ABNORMAL) POCT glucose (06/27/2024 7:42 AM DESIGN TEACHER) Glucose, POC 241(H) 70 - 199 mg/dL Glucose comment 1 Use This Result [facility] Blood 06/27/2024 7:42 AM DESIGN TEACHER 06/27/2024 7:42 AM DESIGN TEACHER Britt Mg MD LAB POCT ORDERABLES - DEVICE Fin al Result Performing Organization Address [facility] Co de Phone Number QASIM [address] [place] [address] * (ABNORMAL) eGFR (06/27/2024 6:29 AM DESIGN TEACHER) Pathologist [facility] eGFR 59(L) >=60 mL/min/1. [...] last reviewed 2021. Blood 06/27/2024 6:29 AM DESIGN TEACHER 06/27/2024 6:49 AM DESIGN TEACHER us Sugey De Leon NP LAB BLOOD ORDERABLES Final Result Performing Organization Address City/[facility]/ZIP Co de Phone Number QASIM [address] [place] [address] * Differential, auto (06/27/2024 6:29 AM DESIGN TEACHER) Pathologist [facility] Neutrophil abs 3.4 1.5 - 6.5 K/cumm Imm gran abs 0.0 0.0 - 0.1 K/cumm [facility] Lymphocyte abs 2.2 0.8 - 3.3 K/cumm [facility] Monocyte abs 0.5 0.2 - 0.8 K/cumm [facility] Eosinophil abs 0.2 0.0 - 0.5 K/cumm [facility] Basophil abs 0.1 0.0 - 0.1 K/cumm [facility] Neutrophil pct 52.5 % [facility] Comment: Interpretive Data Percent cell count reference ranges are not reported, since discordance with absolute values may lead to misinterpretation of CBC data. Current Interpretive Data was last revised on 2017. Imm gran pct 0.3 % [facility] Comment: Interpretive Data Percent cell count reference ranges are not reported, since discordance with absolute values may lead to misinterpretation of CBC data. Current Interpretive Data was last revised on 2017. Lymphocyte pct 34.4 % [facility] Comment: Interpretive Data Percent cell count reference ranges are not reported, since discordance with absolute values may lead to misinterpretation of CBC data. Current Interpretive Data was last revised on 2017. Monocyte pct 8.4 % [facility] Comment: Interpretive Data Percent cell count reference ranges are not reported, since discordance with absolute values may lead to misinterpretation of CBC data. Current Interpretive Data was last revised on 2017. Eosinophil pct 3.6 % [facility] Comment: Interpretive Data Percent cell count reference ranges are not reported, since discordance with absolute values may lead to misinterpretation of CBC data. Current Interpretive Data was last revised on 2017. Basophil pct 0.8 % [facility] Comment: Interpretive Data Percent cell count reference ranges are not reported, since discordance with absolute values may lead to misinterpretation of CBC data. Current Interpretive Data was last revised on 2017. Blood 06/27/2024 6:29 AM DESIGN TEACHER 06/27/2024 6:49 AM DESIGN TEACHER us Sugey De Leon NP LAB BLOOD ORDERABLES Final Result [facility] [place] [address] [facility] Department [place] [address] * (ABNORMAL) CBC with auto differential (06/27/2024 6:29 AM DESIGN TEACHER) [facility] WBC 6.4 3.8 - 9.9 K/cumm Hgb 11.8(L) 11.9 - 15.5 g/dL [facility] Hct 35.9 35.6 - 45.5 % [facility] Plt 184 150 - 400 K/cumm [facility] MPV 9.3 9.1 - 12.3 fL [facility] RBC 4.15 3.90 - 5.20 M/cumm [facility] MCV 86.5 81.3 - 96.4 fL [facility] MCH 28.4 27.1 - 33.3 pg [facility] MCHC 32.9 32.3 - 35.7 g/dL [facility] RDW CV 12.8 11.1 - 14.9 % [facility] RDW SD 40.1 35.7 - 48.1 fL [facility] NRBC abs 0.00 0.00 - 0.01 K/cumm [facility] Blood 06/27/2024 6:29 AM DESIGN TEACHER 06/27/2024 6:49 AM DESIGN TEACHER us Sugey De Leon NP LAB BLOOD ORDERABLES Final Result [facility] [address] [facility] Department [place] [address] * (ABNORMAL) Basic metabolic panel (06/27/2024 6:29 AM DESIGN TEACHER) [facility] Sodium 131(L) 135 - 145 mmol/L Potassium, pl 4.3 3.3 - 4.9 mmol/L [facility] Chloride 96(L) 97 - 110 mmol/L [facility] CO2 24 22 - 32 mmol/L [facility] Anion gap 11 2 - 15 mmol/L [facility] BUN 20 6 - 25 mg/dL [facility] Creatinine 0.99 0.60 - 1.10 mg/dL [facility] Glucose 193 70 - 199 mg/dL [facility] Comment: Delta - Results Reviewed Interpretive Data [...] 2022. Calcium 10.1 8.5 - 10.3 mg/dL [facility] Blood 06/27/2024 6:29 AM DESIGN TEACHER 06/27/2024 6:49 AM DESIGN TEACHER Sugey De Leon LOCOMOTIVE MECHANIC APPRENTICE LAB BLOOD ORDERABLES Final Result Performing Organization Address [facility] Co de Phone Number [address] [place] [address] * (ABNORMAL) POCT glucose (06/26/2024 10:07 PM DESIGN TEACHER) Glucose, POC 326(H) 70 - 199 mg/dL Glucose comment 1 Use This Result [facility] Glucose comment 2 RN/MD Notified [facility] Blood 06/26/2024 10:0 7 PM DESIGN TEACHER 06/26/2024 10:07 PM DESIGN TEACHER Result [facility] Britt Mg MD LAB POCT ORDERABLES - DEVICE Fin al Result Performing Organization Address [facility] de Phone Number [address] [place] [address] * (ABNORMAL) POCT glucose (06/26/2024 7:25 PM DESIGN TEACHER) Glucose, POC 340(H) 70 - 199 mg/dL Glucose comment 1 Use This Result [facility] Glucose comment 2 RN/MD Notified [facility] Blood 06/26/2024 7:25 PM DESIGN TEACHER 06/26/2024 7:25 PM DESIGN TEACHER Result [facility] Britt Mg MD LAB POCT ORDERABLES - DEVICE Fin al Result Performing Organization Address [facility] Co de Phone Number [address] [place] [address] * POCT glucose (06/26/2024 5:02 PM DESIGN TEACHER) Glucose, POC 75 70 - 199 mg/dL Glucose comment 1 Use This Result [facility] Blood 06/26/2024 5:02 PM DESIGN TEACHER 06/26/2024 5:02 PM DESIGN TEACHER Britt Mg MD LAB POCT ORDERABLES - DEVICE Fin al Result Performing Organization Address City/[facility] Co de Phone Number [address] [place] [address] * (ABNORMAL) POCT glucose (06/26/2024 11:43 AM DESIGN TEACHER) Glucose, POC 334(H) 70 - 199 mg/dL Glucose comment 1 Use This Result [facility] Blood 06/26/2024 11:4 3 AM DESIGN TEACHER 06/26/2024 11:43 AM DESIGN TEACHER Britt Mg MD LAB POCT ORDERABLES - DEVICE Fin al Result Performing Organization Address [facility] Co de Phone Number [address] [address] * (ABNORMAL) POCT glucose (06/26/2024 7:52 AM DESIGN TEACHER) Glucose, POC 387(H) 70 - 199 mg/dL Glucose comment 1 Use This Result [facility] Blood 06/26/2024 7:52 AM DESIGN TEACHER 06/26/2024 7:52 AM DESIGN TEACHER Britt Mg MD LAB POCT ORDERABLES - DEVICE Fin al Result Performing Organization Address [facility] Co de Phone Number [address] [address] * (ABNORMAL) eGFR (06/26/2024 6:42 AM DESIGN TEACHER) eGFR 49(L) >=60 mL/min/1. 73 m2 Comment: [...] last reviewed 2021. Blood 06/26/2024 6:42 AM DESIGN TEACHER 06/26/2024 7:38 AM DESIGN TEACHER us Inés Richter Jr., MD LAB BLOOD ORDERABLES Final Result [place] [id number] [facility] Department [place] [address] * Differential, auto (06/26/2024 6:42 AM DESIGN TEACHER) Pathologist [facility] Neutrophil abs 3.2 1.5 - 6.5 K/cumm Imm gran abs 0.0 0.0 - 0.1 K/cumm [facility] Lymphocyte abs 1.7 0.8 - 3.3 K/cumm [facility] Monocyte abs 0.5 0.2 - 0.8 K/cumm [facility] Eosinophil abs 0.2 0.0 - 0.5 K/cumm [facility] Basophil abs 0.0 0.0 - 0.1 K/cumm [facility] Neutrophil pct 56.0 % [facility] Comment: Interpretive Data Percent cell count reference ranges are not reported, since discordance with absolute values may lead to misinterpretation of CBC data. Current Interpretive Data was last revised on 2017. Imm gran pct 0.4 % [facility] Comment: Interpretive Data Percent cell count reference ranges are not reported, since discordance with absolute values may lead to misinterpretation of CBC data. Current Interpretive Data was last revised on 2017. Lymphocyte pct 30.6 % [facility] Comment: Interpretive Data Percent cell count reference ranges are not reported, since discordance with absolute values may lead to misinterpretation of CBC data. Current Interpretive Data was last revised on 2017. Monocyte pct 9.6 % [facility] Comment: Interpretive Data Percent cell count reference ranges are not reported, since discordance with absolute values may lead to misinterpretation of CBC data. Current Interpretive Data was last revised on 2017. Eosinophil pct 2.7 % [facility] Comment: Interpretive Data Percent cell count reference ranges are not reported, since discordance with absolute values may lead to misinterpretation of CBC data. Current Interpretive Data was last revised on 2017. Basophil pct 0.7 % [facility] Comment: Interpretive Data Percent cell count reference ranges are not reported, since discordance with absolute values may lead to misinterpretation of CBC data. Current Interpretive Data was last revised on 2017. Blood 06/26/2024 6:42 AM DESIGN TEACHER 06/26/2024 7:38 AM DESIGN TEACHER us Inés Richter Jr., MD LAB BLOOD ORDERABLES Final Result [facility] [address] [facility] Department [place] [address] * (ABNORMAL) CBC with auto differential (06/26/2024 6:42 AM DESIGN TEACHER) WBC 5.6 3.8 - 9.9 K/cumm Hgb 10.6(L) 11.9 - 15.5 g/dL [facility] Hct 32.6(L) 35.6 - 45.5 % [facility] Plt 168 150 - 400 K/cumm [facility] MPV 9.6 9.1 - 12.3 fL [facility] RBC 3.71(L) 3.90 - 5.20 M/cumm [facility] MCV 87.9 81.3 - 96.4 fL [facility] MCH 28.6 27.1 - 33.3 pg [facility] MCHC 32.5 32.3 - 35.7 g/dL [facility] RDW CV 13.0 11.1 - 14.9 % [facility] RDW SD 41.4 35.7 - 48.1 fL [facility] NRBC abs 0.00 0.00 - 0.01 K/cumm [facility] Blood 06/26/2024 6:42 AM DESIGN TEACHER 06/26/2024 7:38 AM DESIGN TEACHER us Sugey De Leon LOCOMOTIVE MECHANIC APPRENTICE LAB BLOOD ORDERABLES Final Result [facility] [address] [facility] Department [place] [address] * (ABNORMAL) Basic metabolic panel (06/26/2024 6:42 AM DESIGN TEACHER) Sodium 128(L) 135 - 145 mmol/L Potassium, pl 4.3 3.3 - 4.9 mmol/L [facility] Chloride 94(L) 97 - 110 mmol/L [facility] CO2 25 22 - 32 mmol/L [facility] Anion gap 9 2 - 15 mmol/L [facility] BUN 28(H) 6 - 25 mg/dL [facility] Creatinine 1.17(H) 0.60 - 1.10 mg/dL [facility] Glucose 348(H) 70 - 199 mg/dL [facility] Comment: Delta - Results Reviewed Interpretive Data [...] 2022. Calcium 9.2 8.5 - 10.3 mg/dL [facility] Blood 06/26/2024 6:42 AM DESIGN TEACHER 06/26/2024 7:38 AM DESIGN TEACHER us Sugey De Leon NP LAB BLOOD ORDERABLES Final Result Performing Organization Address City/[facility]/ZIP Co de Phone Number [facility] [address] [address] * (ABNORMAL) POCT glucose (06/25/2024 10:57 PM DESIGN TEACHER) Glucose, POC 245(H) 70 - 199 mg/dL Glucose comment 1 Use This Result [facility] Glucose comment 2 RN/MD Notified [facility] Blood 06/25/2024 10:5 7 PM DESIGN TEACHER 06/25/2024 10:57 PM DESIGN TEACHER us Britt Mg MD LAB POCT ORDERABLES - DEVICE Fin al Result Performing Organization Address [facility] Co de Phone Number [facility] [address] [address] * MRI Brain WO Contrast (06/25/2024 10:19 PM DESIGN TEACHER) Anatomical Region Laterality Modality Head and Neck N/A Magnetic Resonan ce 06/25/2024 10:5 5 PM DESIGN TEACHER Narrative 06/25/2024 11:00 PM DESIGN TEACHER EXAM DESCRIPTION: MRI BRAIN WO CONTRAST REASON [...] signed by Devin CARLOS T: Report ID: [id number] Reading Location: [id number] Procedure Note Devin Delgado MD - 06/25/2024 EXAM DESCRIPTION: MRI BRAIN WO CONTRAST REASON FOR STUDY: Stroke, follow up Evaluate for CVA TECHNIQUE: Multiplanar imaging includes non-contrasted T1, T2, FLAIR, and diffusion with ADC map sequences. Additional sequence(s) sensitive [employer] products. Images stored on PACS. COMPARISON: Same [...] signed by Devin CARLOS T: Report ID: [id number] Reading Location: [place] [address] us Sugey De Leon LOCOMOTIVE MECHANIC APPRENTICE IMG MRI PROCEDURES Fi nal Result * (ABNORMAL) POCT glucose (06/25/2024 8:06 PM DESIGN TEACHER) Glucose, POC 353(H) 70 - 199 mg/dL Glucose comment 1 Use This Result [facility] Glucose comment 2 RN/MD Notified [facility] Blood 06/25/2024 8:06 PM DESIGN TEACHER 06/25/2024 8:06 PM DESIGN TEACHER Britt Mg MD LAB POCT ORDERABLES - DEVICE Fin al Result [facility] [address] Department [place] [address] * Lipid panel (06/25/2024 4:59 PM DESIGN TEACHER) Cholesterol 110 30 - 199 mg/dL Comment: [...] 2017. LDL, calculated 32 <=129 mg/dL [facility] Comment: Interpretive Data Ages < [...] 3. Marlo Valle et al. MONICA Cardiol. 2019September 09;5(5):540-548. doi: 10.1001/jamacardio.2020.0013 Current Interpretive Data was last revised on 2023. Non-HDL Cholesterol 50 mg/dL [facility] Comment: Interpretive Data Ages < [...] revised on 2017. Chol/HDL ratio 2 [facility] Blood 06/25/2024 4:59 PM DESIGN TEACHER 06/25/2024 5:32 PM DESIGN TEACHER us Adrienne ESCOBEDO LAB BLOOD ORDERABLES Final Result [facility] [address] [facility] Department [place] [address] * (ABNORMAL) POCT glucose (06/25/2024 4:25 PM DESIGN TEACHER) Glucose, POC 221(H) 70 - 199 mg/dL Glucose comment 1 Use This Result [facility] Blood 06/25/2024 4:25 PM DESIGN TEACHER 06/25/2024 4:25 PM DESIGN TEACHER us Abigail Kalee Riley DO LAB POCT ORDERABLES - DE VICE Final Result [facility] [address] [facility] Department [place] [address] * CT Head WO Contrast (06/25/2024 4:06 PM DESIGN TEACHER) Anatomical Region Laterality Modality Head and Neck N/A Computed Tomogra phy 06/25/2024 4:24 PM DESIGN TEACHER Narrative 06/25/2024 4:28 PM DESIGN TEACHER EXAM DESCRIPTION: CT HEAD WO CONTRAST REASON [...] Magno Soares M.D. AM T: Report ID: [id number] Reading Location: [id number] Procedure Note Magno Soares MD - 06/25/2024 [...] Magno Soares M.D. AM T: Report ID: [id number] Reading Location: [place] [address] us Sugey De Leon LOCOMOTIVE MECHANIC APPRENTICE IMG CT PROCEDURES Fin al Result * POCT glucose (06/25/2024 12:02 PM DESIGN TEACHER) Glucose, POC 173 70 - 199 mg/dL Glucose comment 1 Use This Result [facility] Blood 06/25/2024 12:0 2 PM DESIGN TEACHER 06/25/2024 12:02 PM DESIGN TEACHER us Abigail Lin DO LAB POCT ORDERABLES - DE VICE Final Result [facility] [address] [facility] Department of Laboratories [place], [place] [id number] * TRANSTHORACIC ECHO (TTE) COMPLETE W DOPPLER/CF W CONTRAST (06/25/2024 10:03 AM DESIGN TEACHER) LV EF 55-60 % CONS SCIMAGE Anatomical Region Laterality Modality Ultrasound 06/25/2024 8:08 AM DESIGN TEACHER Narrative 06/25/2024 5:10 PM DESIGN TEACHER Transthoracic Echocardiographic Report Patient Name: CHRISTINE EAST C : 1950 (73y 6m) Gender: F Study Date: 06/25/2024 08:08:31 AM Ht(Inch): 62 Wt(Lb): 182 BSA: 1.9 [employer] Corner Cutter Operator: SAMMI Yi,RVT Location: [id number] Order Provider: INÉS RICHTER Heart Rate: 79 BMI: 33.28 BP: 148/70 Ref Provider: INÉS RICHTER PROCEDURES: Echocardiographic Report: ([id number]) Transthoracic complete echo with contrast, 2D, spectral [...] By: Angel Hernandez MD 06/25/2024 5:10:17 PM DESIGN TEACHER Procedure Note Angel Hernandez MD - 06/25/2024 Transthoracic Echocardiographic Report Patient Name: CHRISTINE EAST C : 1950 (73y 6m) Gender: F Study Date: 06/25/2024 08:08:31 AM Ht(Inch): 62 Wt(Lb): 182 BSA: 1.9 [place] Cutter Operator[facility] Location: [id number] Order Provider:INÉS RICHTER Heart Rate: 79 BMI: 33.28 BP: 148/70 Ref Provider: INÉS RICHTER PROCEDURES: Echocardiographic Report: ([id number]) Transthoracic complete echo withcontrast, 2D, spectral and [...] MV E/A0.90 ratio RWT 0.53 MV Decel Frhi336.00 msec Visually Estimated EF 55-60 % Med [...] By: Angel Hernandez MD 06/25/2024 5:10:17 PM DESIGN TEACHER us Inés Richter Jr., MD CV ECHO PROCEDURES Final R esult * POCT glucose (06/25/2024 8:27 AM DESIGN TEACHER) Glucose, POC 107 70 - 199 mg/dL Glucose comment 1 Use This Result [facility] Blood 06/25/2024 8:27 AM DESIGN TEACHER 06/25/2024 8:27 AM DESIGN TEACHER us Abigail Lin DO LAB POCT ORDERABLES - DE VICE Final Result [facility] [address] [facility] Department [place] [address] * Critical Care (06/25/2024 6:57 AM DESIGN TEACHER) Narrative Abigail Lin DO - 06/25/2024 6:57 AM DESIGN TEACHER Sugey De Leon NP 06/25/2024 9:40 AM Critical Care Performed by: Sugey De Leon NP Authorized by: Sugey De Leon NP CRITICAL CARE: Team: [facility] Shift: AM Level of Billing: Subsequent Hospital [...] plan with the patient's team and other medical/recruitment consultant staff. This time was in addition [...] the medical record us Sugey De Leon LOCOMOTIVE MECHANIC APPRENTICE IN CLINIC/BEDSIDE ORD ERABLES Final Result * POCT glucose (06/25/2024 4:09 AM DESIGN TEACHER) Pathologist [facility] Glucose, POC 114 70 - 199 mg/dL Glucose comment 1 Use This Result [facility] Blood 06/25/2024 4:09 AM DESIGN TEACHER 06/25/2024 4:09 AM DESIGN TEACHER us Abigail Lin DO LAB POCT ORDERABLES - DE VICE Final Result [facility] [facility] Department [place] [address] * (ABNORMAL) eGFR (06/25/2024 2:22 AM DESIGN TEACHER) Pathologist [facility] eGFR 52(L) >=60 mL/min/1. 73 m2 Comment: [...] last reviewed 2021. Blood 06/25/2024 2:22 AM DESIGN TEACHER 06/25/2024 3:01 AM DESIGN TEACHER us Inés Richter Jr., MD LAB BLOOD ORDERABLES Final Result [facility] [address] [facility] Department [place] [address] * Differential, auto (06/25/2024 2:22 AM DESIGN TEACHER) Neutrophil abs 6.2 1.5 - 6.5 K/cumm Imm gran abs 0.0 0.0 - 0.1 K/cumm [facility] Lymphocyte abs 1.3 0.8 - 3.3 K/cumm [facility] Monocyte abs 0.6 0.2 - 0.8 K/cumm [facility] Eosinophil abs 0.0 0.0 - 0.5 K/cumm [facility] Basophil abs 0.0 0.0 - 0.1 K/cumm [facility] Neutrophil pct 75.6 % [facility] Comment: Interpretive Data Percent cell count reference ranges are not reported, since discordance with absolute values may lead to misinterpretation of CBC data. Current Interpretive Data was last revised on 2017. Imm gran pct 0.4 % [facility] Comment: Interpretive Data Percent cell count reference ranges are not reported, since discordance with absolute values may lead to misinterpretation of CBC data. Current Interpretive Data was last revised on 2017. Lymphocyte pct 15.9 % [facility] Comment: Interpretive Data Percent cell count reference ranges are not reported, since discordance with absolute values may lead to misinterpretation of CBC data. Current Interpretive Data was last revised on 2017. Monocyte pct 7.8 % [facility] Comment: Interpretive Data Percent cell count reference ranges are not reported, since discordance with absolute values may lead to misinterpretation of CBC data. Current Interpretive Data was last revised on 2017. Eosinophil pct 0.1 % [facility] Comment: Interpretive Data Percent cell count reference ranges are not reported, since discordance with absolute values may lead to misinterpretation of CBC data. Current Interpretive Data was last revised on 2017. Basophil pct 0.2 % [facility] Comment: Interpretive Data Percent cell count reference ranges are not reported, since discordance with absolute values may lead to misinterpretation of CBC data. Current Interpretive Data was last revised on 2017. Blood 06/25/2024 2:22 AM DESIGN TEACHER 06/25/2024 3:02 AM DESIGN TEACHER us Inés Richter Jr., MD LAB BLOOD ORDERABLES Final Result Performing Organization Address City/[facility] Co de Phone Number [facility] [address] [facility] Department [place] [address] * (ABNORMAL) CBC with auto differential (06/25/2024 2:22 AM DESIGN TEACHER) Pathologist [facility] WBC 8.2 3.8 - 9.9 K/cumm Hgb 11.4(L) 11.9 - 15.5 g/dL [facility] Hct 34.5(L) 35.6 - 45.5 % [facility] Plt 204 150 - 400 K/cumm [facility] MPV 9.5 9.1 - 12.3 fL [facility] RBC 4.05 3.90 - 5.20 M/cumm [facility] MCV 85.2 81.3 - 96.4 fL [facility] MCH 28.1 27.1 - 33.3 pg [facility] MCHC 33.0 32.3 - 35.7 g/dL [facility] RDW CV 12.9 11.1 - 14.9 % [facility] RDW SD 39.9 35.7 - 48.1 fL [facility] NRBC abs 0.00 0.00 - 0.01 K/cumm [facility] Blood 06/25/2024 2:22 AM DESIGN TEACHER 06/25/2024 3:02 AM DESIGN TEACHER us Sugey De Leon NP LAB BLOOD ORDERABLES Final Result Performing Organization Address City/[facility]/ZIP Co de Phone Number [facility] [place] [address] * Magnesium (06/25/2024 2:22 AM DESIGN TEACHER) [facility] Magnesium 1.8 1.4 - 2.5 mg/dL Blood 06/25/2024 2:22 AM DESIGN TEACHER 06/25/2024 3:02 AM DESIGN TEACHER Inés Richter Jr., MD LAB BLOOD ORDERABLES Final Result Performing Organization Address [facility] de Phone Number [address] [address] * (ABNORMAL) Hemoglobin A1c (06/25/2024 2:22 AM DESIGN TEACHER) [facility] Hgb A1C 9.3(H) 4.0 - 5.6 % Estimated Average Glucose 220 mg/dL [facility] Comment: The ADA recommends reporting an estimated Average Glucose (eAG) with all Hemoglobin A1c results using the equation derived from a study of 507 normal and diabetic adults. Minority populations were underrepresented and children were not included. (Diabetes Care 31:3650-0855, 2008). The eAG is not equivalent to a fasting glucose. Blood 06/25/2024 2:22 AM DESIGN TEACHER 06/25/2024 3:00 AM DESIGN TEACHER Inés Richter Jr., MD LAB BLOOD ORDERABLES Final Result Performing Organization Address [facility] de Phone Number [address] [address] * (ABNORMAL) Basic metabolic panel (06/25/2024 2:22 AM DESIGN TEACHER) [facility] Sodium 133(L) 135 - 145 mmol/L Potassium, pl 4.3 3.3 - 4.9 mmol/L [facility] Chloride 98 97 - 110 mmol/L [facility] CO2 25 22 - 32 mmol/L [facility] Anion gap 10 2 - 15 mmol/L [facility] BUN 26(H) 6 - 25 mg/dL [facility] Creatinine 1.10 0.60 - 1.10 mg/dL [facility] Glucose 117 70 - 199 mg/dL [facility] Comment: Interpretive Data Fasting glucose >/= 126 [...] 2022. Calcium 9.9 8.5 - 10.3 mg/dL [facility] Blood 06/25/2024 2:22 AM DESIGN TEACHER 06/25/2024 3:01 AM DESIGN TEACHER us Sugey De Leon LOCOMOTIVE MECHANIC APPRENTICE LAB BLOOD ORDERABLES Final Result [address] [place] [address] * POCT glucose (06/24/2024 11:38 PM DESIGN TEACHER) [facility] Glucose, POC 167 70 - 199 mg/dL Glucose comment 1 Use This Result [facility] Glucose comment 2 RN/MD Notified [facility] Blood 06/24/2024 11:3 8 PM DESIGN TEACHER 06/24/2024 11:38 PM DESIGN TEACHER us Abigail Lin DO LAB POCT ORDERABLES - DE VICE Final Result [address] [place] [address] * (ABNORMAL) Troponin T high-sensitivity 6-hour (06/24/2024 9:06 PM DESIGN TEACHER) Pathologist [facility] Trop T hs 15(H) <=14 ng/L Comment: Interpretive Data For further hscTnT resources including the diagnostic algorithm and an aid in interpretation, copy and paste this link: https://nrl.testcatalog.org/show/hsTrop Current Interpretive Data last revised 2020. Trop T hs delta 4 ng/L [facility] Trop T hs interp Insignificant [facility] Blood 06/24/2024 9:06 PM DESIGN TEACHER 06/24/2024 9:35 PM DESIGN TEACHER Pau Ngo MD LAB BLOOD ORDERABLES F inal Result Performing Organization Address [facility] Co de Phone Number [facility] [address] [facility] Department [place] [address] * (ABNORMAL) Urinalysis reflex to microscopic and culture Urine (06/24/2024 8:41 PM DESIGN TEACHER) Color, ur Yellow Yellow Clarity, ur Clear Clear [facility] Specific gravity, ur >1.050(A) 1.003 - 1.030 [facility] pH, urine 6.5 [facility] Comment: Interpretive Data U rine pH is affected by diet, medications, systemic acid-base disturbances, and renal tubular function. pH may affect urinary stone formation. For example, urine pH below 6.0 may help reduce the tendency for calcium phosphate stones and pH greater than 6.0 may reduce the tendency for uric acid stone formation. Source: [facility] Current Interpretive Data was last revised on 2017 Protein, ur ql 1+(A) Negative [facility] Glucose, ur ql 3+(A) Negative [facility] Ketones, ur 1+(A) Negative [facility] Bilirubin, ur Negative Negative [facility] Blood, ur Negative Negative [facility] Urobilinogen, ur <2.0 <2.0 mg/dL [facility] Nitrite, ur Negative Negative [facility] Leukocyte esterase, ur Negative Negative [facility] UA reflex comment Reflex to microscopic UA will be performed. [facility] Urine 06/24/2024 8:41 PM DESIGN TEACHER 06/24/2024 8:49 PM DESIGN TEACHER Pau Ngo MD LAB MICROBIOLOGY - GEN ERAL ORDERABLES Final Result Performing Organization Address [facility] Co de Phone Number [address] [address] * (ABNORMAL) Urinalysis, microscopic only (06/24/2024 8:41 PM DESIGN TEACHER) [facility] WBC, ur 0-5 0 - 5 /HPF RBC, ur 3-5(A) 0 - 2 /HPF [facility] Epithelial cells, squamous, ur 1-5 0 - 5 /HPF [facility] Culture Reflex Comment Reflex conditions for urine culture (WBC >10) not met. [facility] Urine 06/24/2024 8:41 PM DESIGN TEACHER 06/24/2024 8:49 PM DESIGN TEACHER us Pau Ngo MD LAB URINE ORDERABLES F inal Result Performing Organization Address [facility] Co de Phone Number [address] [address] * (ABNORMAL) POCT glucose (06/24/2024 8:26 PM DESIGN TEACHER) [facility] Glucose, POC 250(H) 70 - 199 mg/dL Glucose comment 1 Use This Result [facility] Blood 06/24/2024 8:26 PM DESIGN TEACHER 06/24/2024 8:26 PM DESIGN TEACHER us Abigail Lin DO LAB POCT ORDERABLES - DE VICE Final Result Performing Organization Address [facility] Co de Phone Number [address] [address] * Infection Prevention MRSA Only (Staphylococcus aureus) PCR Nasal (06/24/2024 7:58 PM DESIGN TEACHER) [facility] PCR Scrn, Methicillin resistant Staphylococcus aureus (MRSA) Not Detected Not Detected Comment: Interpretive Data Testing performed using Nucleic Acid Amplification with the [employer] Xpert MRSA NxG Assay. This assay detects target DNA from mecA, mecC and the SCCmec insertion site of Staphylococcus aureus using Real-Time PCR and has been cleared by the FDA. Performance characteristics have been verified by the [facility]. Current Interpretive Data was last revised on 2023 Nasal 06/24/2024 7:58 PM DESIGN TEACHER 06/24/2024 8:02 PM DESIGN TEACHER Inés Richter Jr., MD LAB MICROBIOLOGY - GENERAL ORDERABLES Final Result [facility] [address] [facility] Department [place] [address] * Critical Care (06/24/2024 7:32 PM DESIGN TEACHER) Narrative Inés Richter Jr., MD - 06/24/2024 7:32 PM DESIGN TEACHER Inés Richter Jr., MD 06/24/2024 8:03 PM Critical Care Performed by: Inés Richter Jr., MD Authorized by: Inés Richter Jr., MD CRITICAL CARE: Team: [facility] Shift: PM Level of Billing: Initial Hospital [...] plan with the patient's team and other medical/recruitment consultant staff. This time was in addition [...] Troponin T high-sensitivity 4-hour (06/24/2024 6:28 PM DESIGN TEACHER) Trop T hs 17(H) <=14 ng/L Comment: Interpretive Data For further hscTnT resources including the diagnostic algorithm and an aid in interpretation, copy and paste this link: https://nrl.testcatnLife [employer]rapeutics.org/show/hsTrop Current Interpretive Data last revised 2020. Trop T hs delta 6 ng/L [facility] Trop T hs interp Equivocal [facility] Blood 06/24/2024 6:28 PM DESIGN TEACHER 06/24/2024 6:30 PM DESIGN TEACHER us Pau Ngo MD LAB BLOOD ORDERABLES F inal Result Performing Organization Address City/[facility] Co de Phone Number SHAHZAD[address] [place] [address] * Troponin T high-sensitivity 2-hour (06/24/2024 4:36 PM DESIGN TEACHER) Trop T hs 10 <=14 ng/L Comment: Interpretive Data For further hscTnT resources including the diagnostic algorithm and an aid in interpretation, copy and paste this link: https://nrl.testcatnLife Therapeutics.org/show/hsTrop Current Interpretive Data last revised 2020. Trop T hs delta -1 ng/L [facility] Trop T hs interp Insignificant [facility] Blood 06/24/2024 4:36 PM DESIGN TEACHER 06/24/2024 4:53 PM DESIGN TEACHER Pau Ngo MD LAB BLOOD ORDERABLES F inal Result Performing Organization Address City/[facility]/ZIP Co de Phone Number [id number] [place] [address] * Thyroid Function [place] (06/24/2024 4:36 PM DESIGN TEACHER) TSH 0.51 0.30 - 4.20 mcIUnit/mL Blood 06/24/2024 4:36 PM DESIGN TEACHER 06/24/2024 4:53 PM DESIGN TEACHER Abigail Kalee Riley DO LAB BLOOD ORDERABLES Fin al Result [facility] [address] [place] [address] * Magnesium (06/24/2024 4:36 PM DESIGN TEACHER) Magnesium 1.4 1.4 - 2.5 mg/dL Blood 06/24/2024 4:36 PM DESIGN TEACHER 06/24/2024 4:53 PM DESIGN TEACHER us Abigail Lin DO LAB BLOOD ORDERABLES Fin al Result Performing Organization Address [facility] Co de Phone Number [facility] [address] [facility] [place] [address] * IA CRITICAL CARE ILL/INJURED PATIENT INIT 30-74 MIN (06/24/2024 4:11 PM DESIGN TEACHER) Narrative Pau Ngo MD - 06/24/2024 4:11 PM DESIGN TEACHER Pau Ngo MD 06/24/2024 4:13 PM Critical [...] and discussed management with the admitting team. us Pau Ngo MD IN CLINIC/BEDSIDE OBED CORDERO Final Result * ECG 12 lead (06/24/2024 2:37 PM DESIGN TEACHER) Pathologist [facility] Ventricular Rate EKG/Min 93 BPM [facility] Atrial Rate 93 BPM [facility] IA-Interval (MSEC) 150 ms [facility] QRS-Interval (MSEC) 78 ms [facility] QT-Interval (MSEC) 390 ms [facility] QTc 484 ms [facility] P [place] 54 degrees [facility] R [place] -20 degrees [facility] T [place] 83 degrees [facility] Diagnosis Normal sinus rhythm Low voltage QRS Cannot rule out Anterior infarct , age undetermined Abnormal ECG When compared with ECG of 15-JUL-2013 17:31, No significant change was found Confirmed by YOAV MONTANO M.D. ([id number]) on 06/25/2024 8:35:33 PM [facility] 06/24/2024 2:37 PM DESIGN TEACHER 06/25/2024 8:35 PM DESIGN TEACHER Pau Ngo MD ECG ORDERABLES Final Result [facility] * CTA Stroke Head Neck W Contrast (06/24/2024 2:36 PM DESIGN TEACHER) Anatomical Region Laterality Modality Head and Neck N/A Computed Tomogra phy 06/24/2024 2:45 PM DESIGN TEACHER Narrative 06/24/2024 3:03 PM DESIGN TEACHER EXAM DESCRIPTION: CTA STROKE HEAD NECK W CONTRAST REASON FOR STUDY: LKW 1345. Pt came from laboratory clerk during a left carotid angio imaging study. [...] OTHER: No other significant abnormality. INTRA[employer] VESSELS [place]: The anterior, middle, posterior cerebral [...] to the ordering physician by the Radiology user support specialist. THIS IS AN ELECTRONICALLY VERIFIED FINAL REPORT 06/24/2024 3:03 PM - Electronically signed by Alexis PEREZ T: Report ID: [id number] Reading Location: [place] [address] Procedure Note Alexis Nielsen MD - 06/24/2024 EXAM DESCRIPTION: CTA STROKE HEAD NECK W CONTRAST REASON FOR STUDY: LKW 1345. Pt came from laboratory clerk during a left carotid angio imaging study.Pt [...] OTHER: No other significant abnormality. IN[employer] [place]: The anterior, middle, posterior cerebral [...] to the ordering physician by the Radiology user support specialist. THIS IS AN ELECTRONICALLY VERIFIED FINAL REPORT 06/24/2024 3:03 PM - Electronically signed by Alexis Nielsen M.D. KN T: Report ID: [id number] Reading Location: [id number] Pau Ngo MD IMG CT PROCEDURES [facility] l Result * POCT glucose (06/24/2024 2:33 PM DESIGN TEACHER) Glucose, POC 170 70 - 199 mg/dL Glucose comment 1 RN/ Notified QASIM DUMONT Blood 06/24/2024 2:33 PM DESIGN TEACHER 06/24/2024 2:33 PM DESIGN TEACHER Pau Ngo MD LAB POCT ORDERABLES - DEVICE Final Result QASIM DUMONT [address] [facility] Department [place] [address] * CT Stroke Head WO Contrast (06/24/2024 2:25 PM DESIGN TEACHER) Anatomical Region Laterality Modality Head N/A Computed Tomogra phy 06/24/2024 2:36 PM DESIGN TEACHER Narrative 06/24/2024 2:42 PM DESIGN TEACHER EXAM DESCRIPTION: CT STROKE HEAD WO CONTRAST [...] signed by Gerber MATHIS T: Report ID: [id number] Reading Location: [id number] Procedure Note Gerber Kowalski MD - 06/24/2024 [...] - Electronically signed by Gerber Kowalski M.D. LB T: Report ID: [id number] Reading Location: [id number] us Pau Ngo MD IMG CT PROCEDURES [facility] l Result * Troponin T high-sensitivity series (baseline, 2hr, 4hr, 6hr) (06/24/2024 2:22 PM DESIGN TEACHER) Trop T hs 11 <=14 ng/L Comment: Interpretive Data For further hscTnT resources including the diagnostic algorithm and an aid in interpretation, copy and paste this link: https://nrl.testcatalog.org/show/hsTrop Current Interpretive Data last revised 2020. Blood 06/24/2024 2:22 PM DESIGN TEACHER 06/24/2024 2:26 PM DESIGN TEACHER us Pau Ngo MD LAB BLOOD ORDERABLES F inal Result QASIM [address] [facility] Department [place] [address] * eGFR (06/24/2024 2:22 PM DESIGN TEACHER) Pathologist [facility] eGFR 65 >=60 mL/min/1. [...] last reviewed 2021. Blood 06/24/2024 2:22 PM DESIGN TEACHER 06/24/2024 2:26 PM DESIGN TEACHER us Pau Ngo MD LAB BLOOD ORDERABLES F inal Result [facility] [address] [facility] Department [place] [address] * Differential, auto (06/24/2024 2:22 PM DESIGN TEACHER) Pathologist [facility] Neutrophil abs 4.8 1.5 - 6.5 K/cumm Imm gran abs 0.0 0.0 - 0.1 K/cumm [facility] Lymphocyte abs 2.0 0.8 - 3.3 K/cumm [facility] Monocyte abs 0.7 0.2 - 0.8 K/cumm [facility] Eosinophil abs 0.2 0.0 - 0.5 K/cumm [facility] Basophil abs 0.0 0.0 - 0.1 K/cumm [facility] Neutrophil pct 61.9 % [facility] Comment: Interpretive Data Percent cell count reference ranges are not reported, since discordance with absolute values may lead to misinterpretation of CBC data. Current Interpretive Data was last revised on 2017. Imm gran pct 0.4 % [facility] Comment: Interpretive Data Percent cell count reference ranges are not reported, since discordance with absolute values may lead to misinterpretation of CBC data. Current Interpretive Data was last revised on 2017. Lymphocyte pct 26.2 % [facility] Comment: Interpretive Data Percent cell count reference ranges are not reported, since discordance with absolute values may lead to misinterpretation of CBC data. Current Interpretive Data was last revised on 2017. Monocyte pct 8.5 % [facility] Comment: Interpretive Data Percent cell count reference ranges are not reported, since discordance with absolute values may lead to misinterpretation of CBC data. Current Interpretive Data was last revised on 2017. Eosinophil pct 2.6 % [facility] Comment: Interpretive Data Percent cell count reference ranges are not reported, since discordance with absolute values may lead to misinterpretation of CBC data. Current Interpretive Data was last revised on 2017. Basophil pct 0.4 % [facility] Comment: Interpretive Data Percent cell count reference ranges are not reported, since discordance with absolute values may lead to misinterpretation of CBC data. Current Interpretive Data was last revised on 2017. Blood 06/24/2024 2:22 PM DESIGN TEACHER 06/24/2024 2:26 PM DESIGN TEACHER us Pau Ngo MD LAB BLOOD ORDERABLES F inal Result [facility] [address] [facility] Department [place] [address] * CBC with auto differential (06/24/2024 2:22 PM DESIGN TEACHER) WBC 7.8 3.8 - 9.9 K/cumm Hgb 12.0 11.9 - 15.5 g/dL [facility] Hct 36.2 35.6 - 45.5 % [facility] Plt 199 150 - 400 K/cumm [facility] MPV 9.4 9.1 - 12.3 fL [facility] RBC 4.21 3.90 - 5.20 M/cumm [facility] MCV 86.0 81.3 - 96.4 fL [facility] MCH 28.5 27.1 - 33.3 pg [facility] MCHC 33.1 32.3 - 35.7 g/dL [facility] RDW CV 12.7 11.1 - 14.9 % [facility] RDW SD 39.7 35.7 - 48.1 fL [facility] NRBC abs 0.00 0.00 - 0.01 K/cumm [facility] Blood Venous blood specimen / Unknown 06/24/2024 2:22 PM DESIGN TEACHER 06/24/2024 2:26 PM DESIGN TEACHER Narrative [facility] - 06/24/2024 2:30 PM DESIGN TEACHER Potential Stroke Patient Pau Ngo MD LAB BLOOD ORDERABLES F inal Result Performing Organization Address [facility] de Phone Number [address] [place] [address] * aPTT (06/24/2024 2:22 PM DESIGN TEACHER) aPTT 27 22 - 37 sec Comment: Interpretive data aPTT test has not been evaluated for monitoring heparin therapy. The anti-Xa is the preferred test. Current interpretive data was last revised on 2019. Blood Venous blood specimen / Unknown 06/24/2024 2:22 PM DESIGN TEACHER 06/24/2024 2:26 PM DESIGN TEACHER Narrative [facility] - 06/24/2024 2:40 PM DESIGN TEACHER Potential stroke patient. Pau Ngo MD LAB BLOOD ORDERABLES F inal Result Performing Organization Address [facility] de Phone Number [address] [place] [address] * Protime-INR (06/24/2024 2:22 PM DESIGN TEACHER) PT 13.1 12.0 - 14.6 sec INR 1.0 0.9 - 1.2 [facility] Comment: Ref Range High Interpretive data Oral anticoagulant therapeutic ranges: Venous thromboembolism prophylaxis or treatment: 2.0-3.0 CARDIOLOGY Standard range: 2.0-3.0 High-intensity range: 2.5-3.5 Refer to indication-specific guidelines for appropriate target ranges for prosthetic heart valve replacement. Current interpretive data was last revised on 2019. Blood 06/24/2024 2:22 PM DESIGN TEACHER 06/24/2024 2:26 PM DESIGN TEACHER us Pau Ngo MD LAB BLOOD ORDERABLES F inal Result [facility] [address] [facility] Department [place] [address] * (ABNORMAL) Comprehensive metabolic panel (06/24/2024 2:22 PM DESIGN TEACHER) Sodium 132(L) 135 - 145 mmol/L Potassium, pl 4.2 3.3 - 4.9 mmol/L [facility] Comment:Hemolyzed; Potassium value may be falsely elevated by as much as 1.0 mmol/L. Suggest redraw and reanalysis. Chloride 98 97 - 110 mmol/L [facility] CO2 23 22 - 32 mmol/L [facility] Anion gap 11 2 - 15 mmol/L [facility] BUN 20 6 - 25 mg/dL [facility] Creatinine 0.92 0.60 - 1.10 mg/dL [facility] Glucose 168 70 - 199 mg/dL [facility] Comment: Interpretive Data Fasting glucose >/= 126 [...] classification and Diagnosis of Diabetes Diabetes Care 2022; 46: S19-S40. Current interpretive data was last revised 2022. Calcium 9.8 8.5 - 10.3 mg/dL [facility] Bilirubin, total 0.4 0.1 - 1.2 mg/dL [facility] Protein, pl 6.4(L) 6.5 - 8.5 g/dL [facility] Albumin 4.1 3.5 - 5.0 g/dL QASIM Alk phos 65 40 - 130 Units/L QASIM ALT 15 7 - 45 Units/L QASIM AST See Comment 10 - 45 [facility] Comment:Credited; Hemolyzed Specimen Blood Venous blood specimen / Unknown 06/24/2024 2:22 PM DESIGN TEACHER 06/24/2024 2:26 PM DESIGN TEACHER Narrative QASIM - 06/24/2024 2:59 PM DESIGN TEACHER Potential Stroke Patient Pau Ngo MD LAB BLOOD ORDERABLES F inal Result Performing Organization Address City/[facility]/ZIP Co de Phone Number SHAHZADYOHAN [address] [place] [address] * POCT glucose (06/24/2024 1:37 PM DESIGN TEACHER) Glucose, POC 167 70 - 199 mg/dL Blood 06/24/2024 1:37 PM DESIGN TEACHER 06/24/2024 1:37 PM DESIGN TEACHER Manuel Rollins MD LAB POCT ORDERABLES - DEVICE Fin al Result Performing Organization Address [facility] Co de Phone Number [address] [place] [address] * POCT glucose (06/24/2024 11:15 AM DESIGN TEACHER) Glucose, POC 151 70 - 199 mg/dL Glucose comment 1 Use This Result QASIM Blood 06/24/2024 11:1 5 AM DESIGN TEACHER 06/24/2024 11:15 AM DESIGN TEACHER Manuel Rollins MD LAB POCT ORDERABLES - DEVICE Fin al Result Performing Organization Address [facility] Co de Phone Number [address] [place] [address] * PERIPHERAL ANGIOGRAPHY (06/24/2024 10:54 AM DESIGN TEACHER) Anatomical Region Laterality Modality X-Ray Angiograph y Narrative 06/24/2024 11:03 AM DESIGN TEACHER Please see OpNote for result. us Manuel Rollins MD CV CARDIAC CATH PROCEDURES Final Result * ABO / Rh Confirmation Testing (06/24/2024 8:59 AM DESIGN TEACHER) [facility] ABO/Rh Confirmation A Positive [facility] Blood 06/24/2024 8:59 AM DESIGN TEACHER 06/24/2024 9:02 AM DESIGN TEACHER us Manuel Rollnis MD LAB BLOOD ORDERABLES Final Resul t Performing Organization Address City/[facility]/ZIP Co de Phone Number QASIM [address] [place] [address] [facility] * POCT glucose (06/24/2024 8:48 AM DESIGN TEACHER) [facility] Glucose, POC 155 70 - 199 mg/dL Glucose comment 1 Use This Result [facility] Blood 06/24/2024 8:48 AM DESIGN TEACHER 06/24/2024 8:48 AM DESIGN TEACHER us Manuel Rollins MD LAB POCT ORDERABLES - DEVICE Fin al Result Performing Organization Address City/[facility] Co de Phone Number SHAHZAD[address] [place] [address] * (ABNORMAL) eGFR (06/24/2024 8:46 AM DESIGN TEACHER) [facility] eGFR 54(L) >=60 mL/min/1. 73 m2 Comment: [...] last reviewed 2021. Blood 06/24/2024 8:46 AM DESIGN TEACHER 06/24/2024 8:50 AM DESIGN TEACHER us Manuel Rollins MD LAB BLOOD ORDERABLES Final Resul t [facility] [address] [facility] Department [place] [address] * Differential, auto (06/24/2024 8:46 AM DESIGN TEACHER) Neutrophil abs 4.4 1.5 - 6.5 K/cumm Imm gran abs 0.0 0.0 - 0.1 K/cumm [facility] Lymphocyte abs 2.4 0.8 - 3.3 K/cumm [facility] Monocyte abs 0.6 0.2 - 0.8 K/cumm [facility] Eosinophil abs 0.4 0.0 - 0.5 K/cumm [facility] Basophil abs 0.0 0.0 - 0.1 K/cumm [facility] Neutrophil pct 56.6 % [facility] Comment: Interpretive Data Percent cell count reference ranges are not reported, since discordance with absolute values may lead to misinterpretation of CBC data. Current Interpretive Data was last revised on 2017. Imm gran pct 0.5 % [facility] Comment: Interpretive Data Percent cell count reference ranges are not reported, since discordance with absolute values may lead to misinterpretation of CBC data. Current Interpretive Data was last revised on 2017. Lymphocyte pct 30.4 % [facility] Comment: Interpretive Data Percent cell count reference ranges are not reported, since discordance with absolute values may lead to misinterpretation of CBC data. Current Interpretive Data was last revised on 2017. Monocyte pct 7.5 % [facility] Comment: Interpretive Data Percent cell count reference ranges are not reported, since discordance with absolute values may lead to misinterpretation of CBC data. Current Interpretive Data was last revised on 2017. Eosinophil pct 4.5 % [facility] Comment: Interpretive Data Percent cell count reference ranges are not reported, since discordance with absolute values may lead to misinterpretation of CBC data. Current Interpretive Data was last revised on 2017. Basophil pct 0.5 % [facility] Comment: Interpretive Data Percent cell count reference ranges are not reported, since discordance with absolute values may lead to misinterpretation of CBC data. Current Interpretive Data was last revised on 2017. Blood 06/24/2024 8:46 AM DESIGN TEACHER 06/24/2024 8:50 AM DESIGN TEACHER us Manuel Rollins MD LAB BLOOD ORDERABLES Final Resul t [place] [address] [facility] Department [place] [address] * CBC with auto differential (06/24/2024 8:46 AM DESIGN TEACHER) WBC 7.9 3.8 - 9.9 K/cumm Hgb 13.0 11.9 - 15.5 g/dL [facility] Hct 40.1 35.6 - 45.5 % [facility] Plt 232 150 - 400 K/cumm [facility] MPV 9.3 9.1 - 12.3 fL [facility] RBC 4.62 3.90 - 5.20 M/cumm [facility] MCV 86.8 81.3 - 96.4 fL [facility] MCH 28.1 27.1 - 33.3 pg [facility] MCHC 32.4 32.3 - 35.7 g/dL [facility] RDW CV 12.7 11.1 - 14.9 % [facility] RDW SD 40.2 35.7 - 48.1 fL [facility] NRBC abs 0.00 0.00 - 0.01 K/cumm [facility] Blood 06/24/2024 8:46 AM DESIGN TEACHER 06/24/2024 8:50 AM DESIGN TEACHER Narrative [facility] - 06/24/2024 8:58 AM DESIGN TEACHER If most recent labs were drawn prior to 4 AM, draw only prior to initiating procedure. Manuel Rollins MD LAB BLOOD ORDERABLES Final Resul t Performing Organization Address [facility] de Phone Number QASIM [address] [address] * ABO/Rh (06/24/2024 8:46 AM DESIGN TEACHER) ABO/Rh A Positive Blood 06/24/2024 8:46 AM DESIGN TEACHER 06/24/2024 8:50 AM DESIGN TEACHER Narrative QASIM - 06/24/2024 9:25 AM DESIGN TEACHER Has the patient had Daratumumab or Isatuximab in the past 6 months?->Unknown Manuel Rollins MD LAB BLOOD BANK TEST ORDERABLES F inal Result Performing Organization Address [facility] de Phone Number [address] [address] * aPTT (06/24/2024 8:46 AM DESIGN TEACHER) aPTT 25 22 - 37 sec Comment: Interpretive data aPTT test has not been evaluated for monitoring heparin therapy. The anti-Xa is the preferred test. Current interpretive data was last revised on 2019. Blood 06/24/2024 8:46 AM DESIGN TEACHER 06/24/2024 8:49 AM DESIGN TEACHER Manuel Rollins MD LAB BLOOD ORDERABLES Final Resul t Performing Organization Address [facility] de Phone Number [id number] [place] [address] * Protime-INR (06/24/2024 8:46 AM DESIGN TEACHER) PT 12.1 12.0 - 14.6 sec INR 0.9 0.9 - 1.2 QASIM Comment: Ref Range High Interpretive data Oral anticoagulant therapeutic ranges: Venous thromboembolism prophylaxis or treatment: 2.0-3.0 CARDIOLOGY Standard range: 2.0-3.0 High-intensity range: 2.5-3.5 Refer to indication-specific guidelines for appropriate target ranges for prosthetic heart valve replacement. Current interpretive data was last revised on 2019. Blood 06/24/2024 8:46 AM DESIGN TEACHER 06/24/2024 8:49 AM DESIGN TEACHER Manuel Rollins MD LAB BLOOD ORDERABLES Final Resul t Performing Organization Address [facility] de Phone Number [address] [address] * Antibody screen (06/24/2024 8:46 AM DESIGN TEACHER) [facility] Teresa, indirect, Gel Interpretation Negative ABSC Blood 06/24/2024 8:46 AM DESIGN TEACHER 06/24/2024 8:50 AM DESIGN TEACHER Narrative [facility] - 06/24/2024 9:25 AM DESIGN TEACHER Has the patient had Daratumumab or Isatuximab in the past 6 months?->Unknown Manuel Rollins MD LAB BLOOD BANK TEST ORDERABLES F inal Result Performing Organization Address [facility] de Phone Number [address] [address] * (ABNORMAL) Basic metabolic panel (06/24/2024 8:46 AM DESIGN TEACHER) [facility] Sodium 131(L) 135 - 145 mmol/L Potassium, pl 3.9 3.3 - 4.9 mmol/L [facility] Chloride 94(L) 97 - 110 mmol/L [facility] CO2 24 22 - 32 mmol/L [facility] Anion gap 13 2 - 15 mmol/L [facility] BUN 23 6 - 25 mg/dL [facility] Creatinine 1.07 0.60 - 1.10 mg/dL [facility] Glucose 155 70 - 199 mg/dL [facility] Comment: Interpretive Data Fasting glucose >/= 126 [...] Calcium 10.0 8.5 - 10.3 mg/dL QASIM DUMONT Blood 06/24/2024 8:46 AM DESIGN TEACHER 06/24/2024 8:50 AM DESIGN TEACHER Manuel Rollins MD LAB BLOOD ORDERABLES Final Resul t QASIM DUMONT [address] [facility] Department [place] [address] * US Carotids Duplex Bilateral (06/14/2024 3:04 PM DESIGN TEACHER) Anatomical Region Laterality Modality Vascular Bilateral Ultrasound 06/14/2024 Narrative 06/16/2024 8:53 AM DESIGN TEACHER [employer] Job ID: [id number] [employer] Document ID: [id number] Dictated date/time: [id number] BILATERAL CAROTID DUPLEX REASON FOR EXAM Carotid [...] internal carotid arteries. Job ID/Internal Job ID: [id number] Manuel Rollins MD [facility] US PROCEDURES Final Result * Neuro MR Outside Reference (06/07/2024 3:20 AM DESIGN TEACHER) Narrative RAD_CLARIO_MHB_MHE - 06/11/2024 10:20 AM DESIGN TEACHER This order has been auto-finalized and does not contain a result. us Provider Transcribed Order IMG MRI PROCEDURES Fi nal Result Performing Organization Address [facility] de Phone Number [email or web address] * Neuro CT Outside Reference (06/07/2024 12:00 AM DESIGN TEACHER) Narrative MARLENE_KAMLESH_JULIAE - 06/11/2024 10:19 AM DESIGN TEACHER This order has been auto-finalized and does not contain a result. us Provider Transcribed Order IMG CT PROCEDURES Fin al Result Performing Organization Address [facility] de Phone Number [email or web address] * Neuro CT Outside Reference (06/06/2024 10:20 PM DESIGN TEACHER) Narrative MARLENE_KAMLESH_JULIAE - 06/11/2024 10:45 AM DESIGN TEACHER This order has been auto-finalized and does not contain a result. us Provider Transcribed Order IMG CT PROCEDURES Fin al Result Performing Organization Address [facility] de Phone Number SCOOTER_[email or web address]_MHE from Last 3 Months Insurance MEDICARE HMO [id number] [address] [id number] [facility] MEDICARE HMO Advance Directives For more information, please contact: [phone] * Full Code (Latest Code Status on File) Date Activated Date Inactivated Comments 06/24/2024 7:54 PM 06/27/2024 9:08 PM * Full Code Date Activated Date Inactivated Comments 06/24/2024 12:10 PM 06/24/2024 2:17 PM Care Teams Pony Ride Attendant Relationship Specialty Start Date End Date Rai Rodriguez MD [address] [place] [address] [place] [address] PCP - General Family Medicine 06/24/24
--- OUTSIDE RECORDS SUMMARY | 2024-08-05 11:40 | XMS_ITS | Encounter Summary ---
Author Organization [facility] Address [address] [place] [address] Care Team Providers Care Sped Teacher Name Role Phone Rai Rodriguez MD Primary Care Provider [phone] Encounter Details Date Type Department Care Team (Late st Contact Info) Description 07/14/2024 Telephone [facility] Neurology [address] [phone] Adrienne Cintron PA [address] [place] [address] Social History Tobacco Use Types Packs/Day Years Used Date Smoking Tobacco: Never [facility] Utilities Answer Date Recorded In the past 12 months has [facility] electric, gas, oil, or water company threatened [...] often do you attend chur ch or caodaism services? Never 06/25/2024 Do you belong to any clubs o r organizations such as judaism groups, unions, fraternal or athletic groups, or [...] any time in the past 12 m [facility], were you homeless or living in a fci (including now)? No 06/25/2024 Personal Safety Answer Date Recorded Have you ever been in or are you currently in a harmful physical or emotional relationship or is someone making you feel afraid or unsafe? Denies 06/24/2024 Comments Unknown Sex and Gender Information Value Date Recorded Sex Assigned at Not on file Legal Sex Female 11:26 PM [employer] Gender Identity Not on file Sexual Orientation Not on file documented as of this encounter Miscellaneous Notes * Telephone Encounter - LoomisLesli alexanderMaria Elena - 07/14/2024 2:04 PM CST Patient needs to make hospital follow up appointment. ION COOK documented in this encounter Plan of Treatment Not on file documented as of this encounter Visit Diagnoses Not on filedocumented in this encounter Care Teams Sped Teacher Relationship Specialty Start Date End Date Rai Rodriguez MD [address] [place] [address] PCP - General Family Medicine 06/24/24 documented as of this encounter
== END 2024-08-05 10:30 | disposition home or self-care (01) ==
PROVIDERS: PCP Family Medicine
DX: R91.8 Other nonspecific abnormal finding of lung field (principal)
CPT/HCPCS: 78815; A9552